=== PATIENT | male | born 1970 | race Caucasian/White ===

== ENCOUNTER 2017-03-31 07:35 | Inpatient (IN) | payer SELFPAY ==
[~2017-03-31] VITALS: Ht 190.5 cm; Wt 83.6 kg
[2017-03-31] VITALS (8 sets, daily range): BP systolic 128–163; BP diastolic 69–91
--- NOTE | 2017-03-31 07:58 | Diagnostic Imaging Report ---
PROCEDURE: CT head without contrast. TECHNIQUE: Multiple contiguous axial images were obtained through the brain without the use of intravenous contrast. INDICATION: Left weakness. FINDINGS: The ventricles and sulci are within normal limits. There is no hydrocephalus or cerebral edema. There is no midline shift or mass effect. There is no intracranial mass, hemorrhage, or extra-axial fluid collection. The visualized paranasal sinuses and mastoid air cells are clear. There are no regional areas of decreased attenuation appreciated to suggest an acute CVA. IMPRESSION: No acute intracranial abnormality. If there is high clinical concern for an acute CVA, further evaluation with MRI should be considered. Dictated by: Dictated on workstation # [id number]
[2017-03-31 08:02] LABS: BASOPHILS # (AUTO) 0.1 10^3/uL (0.0-0.1); BASOPHILS % (AUTO) 1 % (0-10); EOSINOPHILS # (AUTO) 0.2 10^3/uL (0.0-0.3); EOSINOPHILS % (AUTO) 2 % (0-10); LYMPHOCYTES # (AUTO) 2.3 X 10^3 (1.0-4.0); LYMPHOCYTES % (AUTO) 27 % (12-44); MEAN CORPUSCULAR HEMOGLOBIN 33 PG (25-34); MEAN CORPUSCULAR HGB CONC 35 G/DL (32-36); MEAN CORPUSCULAR VOLUME 93 FL (80-99); MEAN PLATELET VOLUME 10.3 FL (7.4-10.4); MONOCYTES # (AUTO) 0.8 X 10^3 (0.0-1.0); MONOCYTES % (AUTO) 9 % (0-12); NEUTROPHILS # (AUTO) 5.5 X 10^3 (1.8-7.8); NEUTROPHILS % (AUTO) 62 % (42-75); PLATELET COUNT 208 10^3/uL (130-400); RED BLOOD COUNT 4.97 10^6/uL (4.35-5.85); RED CELL DISTRIBUTION WIDTH 12.3 % (10.0-14.5); WHITE BLOOD COUNT 8.8 10^3/uL (4.3-11.0)
--- NOTE | 2017-03-31 08:12 | ED Neurological Problem ---
General Stated Complaint: STOKE LIKE SYMPTOMS Source: patient, family Exam Limitations: no limitations History of Present Illness Time seen by provider: 07:57 Initial Comments This 47-year-old white male presents with a history of paroxysmal slurred speech and left-sided weakness approximately 30 minutes prior to presentation in the emergency department (onset of symptoms 7:20 a.m.). The patient was at home having a quiet morning when his symptoms occurred. The patient had a glucose at home of approximately 300. The patient's family relates that he is fairly noncompliant in treating his diabetes. Patient has similar episode several years ago for which she was hospitalized at [place]. The patient was diagnosed at that time with a TIA. Baby aspirin has been prescribed for the patient. Allergies and Home Medications Allergies Coded Allergies: No Known Drug Allergies (Unverified , 03/31/17) Constitutional: No chills, No fever Eyes: Denies Blurred Vision Ears, Nose, Mouth, Throat: denies ear pain, denies epistaxis Respiratory: No cough Cardiovascular: No chest pain Gastrointestinal: No nausea Genitourinary: no symptoms reported Musculoskeletal: muscle weakness (left arm) Skin: No rash Psychiatric/Neurological: No Symptoms Reported Endocrine: No Symptoms Reported Hematologic/Lymphatic: No Symptoms Reported Past Aobznho-Srzbcn-Dmsyhn Hx Patient Social History Alcohol Use: Occasionally Uses Recreational Drug Use: No Smoking Status: Heavy Tobacco Smoker Type Used: Cigarettes Reviewed Nursing Assessment Reviewed/Agree w Nursing PMH: Yes Physical Exam Vital Signs Vital Sign - Last 12Hours 03/31/17 07:35 Temp 97.5 Pulse 70 Resp 16 B/P (MAP) 163/91 Pulse Ox 98 O2 Delivery Room Air Capillary Refill : General Appearance: WD/WN, mild distress HEENT: normal ENT inspection Neck: normal inspection Respiratory: normal breath sounds, no respiratory distress Cardiovascular: normal peripheral pulses, regular rate, rhythm Gastrointestinal: normal bowel sounds, non tender, soft Back: normal inspection Extremities: normal range of motion, non-tender, normal inspection Neurologic/Psychiatric: deicer finisher II-XII nml as tested, no motor/sensory deficits, alert, normal mood/affect, oriented x 3 Crainal Nerves: normal hearing, PERRL, abnormal speech (the patient's speech is slow but not slurred), No facial asymmetry, No facial droop Motor/Sensory: no motor deficit, no sensory deficit Skin: normal color, warm/dry Progress/Results/Core Measures Results/Orders Lab Results Laboratory Tests Test 03/31/17 07:30 Range/Units White Blood Count 8.8 4.3-11.0 10^3/uL Red Blood Count 4.97 4.35-5.85 10^6/uL Hemoglobin 16.2 13.3-17.7 G/DL Hematocrit 46 40-54 % Mean Corpuscular Volume 93 80-99 FL Mean Corpuscular Hemoglobin 33 25-34 PG Mean Corpuscular Hemoglobin Concent 35 32-36 G/DL Red Cell Distribution Width 12.3 10.0-14.5 % Platelet Count 208 130-400 10^3/uL Mean Platelet Volume 10.3 7.4-10.4 FL Neutrophils (%) (Auto) 62 42-75 % Lymphocytes (%) (Auto) 27 12-44 % Monocytes (%) (Auto) 9 0-12 % Eosinophils (%) (Auto) 2 0-10 % Basophils (%) (Auto) 1 0-10 % Neutrophils # (Auto) 5.5 1.8-7.8 X 10^3 Lymphocytes # (Auto) 2.3 1.0-4.0 X 10^3 Monocytes # (Auto) 0.8 0.0-1.0 X 10^3 Eosinophils # (Auto) 0.2 0.0-0.3 10^3/uL Basophils # (Auto) 0.1 0.0-0.1 10^3/uL Prothrombin Time 11.0 L 12.2-14.7 SEC INR Comment 0.8 0.8-1.4 Activated Partial Thromboplast Time 29 24-35 SEC D-Dimer 0.36 0.00-0.49 UG/ML Sodium Level 137 135-145 MMOL/L Potassium Level 4.1 3.6-5.0 MMOL/L Chloride Level 104 98-107 MMOL/L Carbon Dioxide Level 20 L 21-32 MMOL/L Anion Gap 13 5-14 MMOL/L Blood Urea Nitrogen 21 H 7-18 MG/DL Creatinine 1.01 0.60-1.30 MG/DL Estimat Glomerular Filtration Rate > 60 BUN/Creatinine Ratio 21 H 0-20 Glucose Level 320 H 70-105 MG/DL Calcium Level 9.2 8.5-10.1 MG/DL Total Bilirubin 0.4 0.1-1.0 MG/DL Aspartate Amino Transf (AST/SGOT) 14 5-34 U/L Alanine Aminotransferase (ALT/SGPT) 16 0-55 U/L Alkaline Phosphatase 94 40-136 U/L Troponin I < 0.30 <0.30 NG/ML Total Protein 7.1 6.4-8.2 GM/DL Albumin 4.3 3.2-4.5 GM/DL My Orders Orders - FELIPE VARELA MD Ct Head Wo (03/31/17 07:42) Cbc With Automated Diff (03/31/17 07:54) Protime With Inr (03/31/17 07:54) Partial Thromboplastin Time (03/31/17 07:54) Comprehensive Metabolic Panel (03/31/17 07:54) Fibrin Degradation Products (03/31/17 07:54) Troponin I (03/31/17 07:54) Chest 1 View, Ap/Pa Only (03/31/17 07:54) Ekg Tracing (03/31/17 07:54) Nothing By Mouth (03/31/17 Lunch) Accucheck Stat ONCE (03/31/17 07:54) Saline Lock/Iv-Start (03/31/17 07:54) Saline Lock/Iv-Start (03/31/17 07:54) Vital Signs-Stroke Q1H (03/31/17 07:54) O2 (03/31/17 07:54) Intake & Output 06,14,22 (03/31/17 07:54) Monitor-Rhythm Ecg Trace Only (03/31/17 07:54) Dysphagia Screening Tool (03/31/17 07:54) Post Thrombolytic Adminstratio (03/31/17 07:54) Aspirin Chewable Tablet (Baby Aspirin Ch (03/31/17 08:30) Ct Angio Chest W (03/31/17 08:54) Clopidogrel Tablet (Plavix Tablet) (03/31/17 09:00) Ua Culture If Indicated (03/31/17 09:02) Accucheck Stat ONCE (03/31/17 09:02) Saline Lock/Iv-Start (03/31/17 09:02) Saline Lock/Iv-Start (03/31/17 09:02) Vital Signs-Stroke Q1H (03/31/17 09:02) O2 (03/31/17 09:02) Intake & Output 06,14,22 (03/31/17 09:02) Dysphagia Screening Tool (03/31/17 09:02) Post Thrombolytic Adminstratio (03/31/17 09:02) Iohexol Injection (Omnipaque 350 Mg/Ml 1 (03/31/17 09:15) Ns (Ivpb) (Sodium Chloride 0.9% Ivpb Bag (03/31/17 09:15) Medications Given in ED Current Medications Medications Dose Ordered Sig/Anthony Route Start Time Stop Time Status Last Admin Dose Admin Aspirin 81 mg ONCE ONCE PO 03/31/17 08:30 03/31/17 08:31 DC 03/31/17 08:41 81 MG Clopidogrel Bisulfate 75 mg ONCE ONCE PO 03/31/17 09:00 03/31/17 09:02 DC 03/31/17 09:12 75 MG Vital Signs/I&O Vital Sign - Last 12Hours 03/31/17 03/31/17 03/31/17 03/31/17 07:35 07:40 07:40 08:41 Temp 97.5 97.5 Pulse 70 70 Resp 16 16 B/P (MAP) 163/91 163/91 Pulse Ox 98 98 98 O2 Delivery Room Air Progress Note : Time: 08:14 Progress Note The patient's initial NIHHS as score on my exam was 14 his slow speech. The nurse's exam following CT of the head was 0. Telephone consultation was undertaken with neurology, Dr. Robles, who recommended based on the patient's history that he was not a candidate for TPA. The patient's CT of the head has been sent to for their review. I am awaiting the patella radiologist's interpretation of the CT here at [facility]. The patient's glucose on arrival was approximately 275. The rest of the patient 's stroke workup has been initiated. Pending the results of the CT of the head, if no bleed is noted, we'll administer aspirin to the patient. A [address] of the head was unremarkable. Baby aspirin was administered to the patient. I discussed initial impressions with the patient and his family. I recommended that he stay for further evaluation with MR and monitoring. The patient agreed to stay for further evaluation. Telephone consultation was undertaken with Dr. Sapp. The patient received 75 mg of Plavix orally. Departure Communication Time/Spoke to Admitting Phy: 09:[address] Sapp Impression Impression: Primary Impression: CVA (cerebral vascular accident) Qualified Codes: I63.9 - Cerebral infarction, unspecified Additional Impression: Lung infiltrate Disposition: ADMITTED INPATIENT Condition: Unchanged Decision to Admit Reason: Admit from ER (General) Decision to Admit/Date: Mar 31, 2017 Time/Decision to Admit Time: 09:33 Departure-Patient Inst. Referrals: UNKNOWN (PCP) Primary Care Physician FELIPE VARELA MD Mar 31, 2017 08:11
[2017-03-31 08:14] LABS: ALANINE AMINOTRANSFERASE 16 U/L (0-55); ALBUMIN 4.3 GM/DL (3.2-4.5); ANION GAP 13 MMOL/L (5-14); ASPARTATE AMINO TRANSFERASE 14 U/L (5-34); BILIRUBIN,TOTAL 0.4 MG/DL (0.1-1.0); BLOOD UREA NITROGEN 21 MG/DL (7-18); BUN/CREATININE RATIO 21 (0-20); CALCIUM 9.2 MG/DL (8.5-10.1); CARBON DIOXIDE 20 MMOL/L (21-32); CHLORIDE 104 MMOL/L (98-107); CREATININE SERUM 1.01 MG/DL (0.60-1.30); GFR ESTIMATED > 60; GLUCOSE 320 MG/DL (70-105); HEMOLYSIS 25 (-100-29); ICTERUS 0.7 (-100-1.9); LIPEMIA 50 (-100-49); POTASSIUM 4.1 MMOL/L (3.6-5.0); SODIUM 137 MMOL/L (135-145); TOTAL PROTEIN 7.1 GM/DL (6.4-8.2)
[2017-03-31 08:17] LABS: INR 0.8 (0.8-1.4)
[2017-03-31 08:20] LABS: TROPONIN I < 0.30 NG/ML (<0.30)
[2017-03-31] MEDS ORDERED: ASPIRIN 81 MG CHEW (CHILDREN'S ASA) PO ONE (08:30)
--- NOTE | 2017-03-31 08:44 | Diagnostic Imaging Report ---
INDICATION: Left weakness. COMPARISON: No prior examination is available for comparison. FINDINGS: The heart size is normal. There is minimal right basilar atelectasis and/or pneumonitis. There is no pleural effusion or pneumothorax. The mediastinum is unremarkable. IMPRESSION: Patchy atelectasis and/or pneumonitis in the medial aspect of the right lung base. Dictated by: Dictated on workstation # [id number]
[2017-03-31] MEDS ORDERED: CLOPIDOGREL 75 MG (PLAVIX) TABLET PO ONE (09:00)
[2017-03-31] MEDS ORDERED: NS 100 ML (IVPB) BAG IV ONE (09:15)
[2017-03-31] MEDS ORDERED: IOHEXOL 350 MG/ML 150 ML (OMNIPAQUE 350) VIAL IV ONE (09:15)
--- NOTE | 2017-03-31 10:08 | Diagnostic Imaging Report ---
PROCEDURE: CT angiography of the chest with contrast. TECHNIQUE: Multiple contiguous axial images were obtained through the chest after uneventful bolus administration of intravenous contrast. Reconstructed CTA MIP acquisitions were also performed. INDICATION: Left weakness, heartburn, and leg swelling. FINDINGS: There is minimal linear scarring in the right lung base. There are no other discrete pulmonary nodules, masses, or infiltrates. There is mild emphysematous disease. There is no pathologically enlarged adenopathy in the chest. The thoracic aorta is normal in caliber without evidence of dissection. There are no filling defects seen within the pulmonary arteries to suggest pulmonary embolism. There is no pneumothorax. There are degenerative changes in the spine. The visualized intra-abdominal structures are grossly unremarkable. IMPRESSION: No evidence of aortic dissection or pulmonary embolism. Minimal linear scarring or atelectasis in the right lung base. Dictated by: Dictated on workstation # [id number]
[2017-03-31] MEDS ORDERED: METF500T4 PO (11:08)
[2017-03-31] MEDS ORDERED: HYDR-3816 PO (11:08)
[2017-03-31] MEDS ORDERED: GABA300S2 PO (11:08)
[2017-03-31] MEDS ORDERED: ASPI-983 PO (11:08)
[2017-03-31] MEDS ORDERED: DULO30CA48 PO (11:08)
[2017-03-31] MEDS ORDERED: GLIM4TAB PO (11:08)
[2017-03-31] MEDS ORDERED: TRAM50TA2 PO (11:08)
[2017-03-31] MEDS ORDERED: CITA40TA11 PO (11:08)
[2017-03-31] MEDS ORDERED: PIOG30TA26 PO (11:08)
[2017-03-31] MEDS ORDERED: LISI-556 PO (11:08)
[2017-03-31 11:09] LABS: BILIRUBIN,URINE NEGATIVE (NEGATIVE); KETONES,URINE NEGATIVE (NEGATIVE); LEUKOCYTE ESTERASE ,URINE NEGATIVE (NEGATIVE); NITRITE,URINE NEGATIVE (NEGATIVE); PH,URINE 5 (5-9); PROTEIN,URINE 2+ (NEGATIVE); UROBILINOGEN,URINE NORMAL (NORMAL)
[2017-03-31] MEDS ORDERED: GADOBUTROL 10 MMOL/10 ML (GADAVIST) VIAL IV ONE (13:45)
--- NOTE | 2017-03-31 14:29 | Diagnostic Imaging Report ---
PROCEDURE: MR imaging of the brain with and without contrast. TECHNIQUE: Multiplanar, multisequence MR imaging of the brain was performed with and without contrast. INDICATION: Stroke symptoms, possible TIA, CVA. COMPARISON: None. FINDINGS: The ventricles are normal in size, shape and position. There is no midline shift or mass effect. There is no hemorrhage or evidence of acute ischemia. There is no abnormal enhancement or mass. Vascular flow voids have a normal appearance. Craniocervical junction anatomy is grossly normal. Paranasal sinuses and mastoids are clear. Orbits are unremarkable. IMPRESSION: Negative MRI of the brain. No focus of acute, chronic ischemia or hemorrhage. Dictated by: Dictated on workstation # [id number]
[2017-03-31] MEDS ORDERED: HYDROcodone/APAP 7.5 MG/325 MG (LORTAB, LORCET PLUS) TABLET PO PRN (18:30)
[2017-03-31] MEDS ORDERED: RX-TRAMADOL 50 MG (ULTRAM) TAB PPK#4 PO PRN (18:30)
[2017-03-31] MEDS: GABAPENTIN 300 MG (NEURONTIN) CAP PO SCH (20:24)
[2017-03-31] MEDS ORDERED: GABAPENTIN 300 MG PO SCH (21:00)
[2017-04-01] VITALS: BP 135/76
[2017-04-01 04:00] VITALS: BP 126/75
[2017-04-01 05:36] LABS: BASOPHILS % (AUTO) 0 % (0-10); EOSINOPHILS # (AUTO) 0.2 10^3/uL (0.0-0.3); EOSINOPHILS % (AUTO) 3 % (0-10); LYMPHOCYTES # (AUTO) 2.1 X 10^3 (1.0-4.0); LYMPHOCYTES % (AUTO) 26 % (12-44); MEAN CORPUSCULAR HEMOGLOBIN 33 PG (25-34); MEAN CORPUSCULAR HGB CONC 35 G/DL (32-36); MEAN CORPUSCULAR VOLUME 93 FL (80-99); MEAN PLATELET VOLUME 10.2 FL (7.4-10.4); MONOCYTES # (AUTO) 0.6 X 10^3 (0.0-1.0); MONOCYTES % (AUTO) 7 % (0-12); NEUTROPHILS # (AUTO) 5.1 X 10^3 (1.8-7.8); NEUTROPHILS % (AUTO) 64 % (42-75); PLATELET COUNT 192 10^3/uL (130-400); RED BLOOD COUNT 4.67 10^6/uL (4.35-5.85); RED CELL DISTRIBUTION WIDTH 11.9 % (10.0-14.5)
[2017-04-01 06:07] LABS: ALANINE AMINOTRANSFERASE 14 U/L (0-55); ALBUMIN 3.5 GM/DL (3.2-4.5); ANION GAP 16 MMOL/L (5-14); ASPARTATE AMINO TRANSFERASE 17 U/L (5-34); BILIRUBIN,TOTAL 0.2 MG/DL (0.1-1.0); BLOOD UREA NITROGEN 26 MG/DL (7-18); BUN/CREATININE RATIO 28 (0-20); CALCIUM 8.4 MG/DL (8.5-10.1); CARBON DIOXIDE 13 MMOL/L (21-32); CHLORIDE 105 MMOL/L (98-107); CREATININE SERUM 0.92 MG/DL (0.60-1.30); GFR ESTIMATED > 60; GLUCOSE 309 MG/DL (70-105); HEMOLYSIS 71 (-100-29); ICTERUS 0.9 (-100-1.9); LIPEMIA 163 (-100-49); POTASSIUM 4.4 MMOL/L (3.6-5.0); SODIUM 134 MMOL/L (135-145); TOTAL PROTEIN 6.7 GM/DL (6.4-8.2)
[2017-04-01] MEDS ORDERED: metFORMIN 500 MG (GLUCOPHAGE) TAB PO SCH (07:00)
[2017-04-01] MEDS ORDERED: GLIMEPIRIDE 4 MG (AMARYL) TAB PO SCH (07:00)
[2017-04-01 08:00] VITALS: BP 138/75
[2017-04-01] MEDS: GABAPENTIN 300 MG (NEURONTIN) CAP PO SCH (08:30)
[2017-04-01] MEDS ORDERED: PIOGLITAZONE 30MG (ACTOS) TAB PO SCH (09:00)
[2017-04-01] MEDS ORDERED: NON-FORMULARY MEDICATION 1 EA EA (Citalopram Hydrobromide (Citalopram HBr) 40 MG) PO SCH (09:00)
[2017-04-01] MEDS ORDERED: DULoxetine 30 MG (CYMBALTA) CAP PO SCH (09:00)
[2017-04-01] MEDS ORDERED: CLOPIDOGREL 75 MG (PLAVIX) TABLET PO SCH (09:00)
[2017-04-01] MEDS ORDERED: ASPIRIN 81 MG CHEW (CHILDREN'S ASA) PO SCH (09:00)
[2017-04-01] MEDS ORDERED: lisINopril 5 MG (PRINIVIL) TABLET PO SCH (09:00)
[2017-04-01] MEDS ORDERED: ASPIRIN E.C. 81 MG (ECOTRIN) TAB PO SCH (09:00)
[2017-04-01] MEDS ORDERED: CLOP75TA28 PO (11:17)
--- NOTE | 2017-04-01 11:28 | Short Stay Summary-Hospitalist ---
HPI History of Present Illness: HPI/Chief Complaint CC: Garbled speech 30 minutes before ER arrival HPI: This is a 47-year-old white male who goes to Dr. Alice Obregon in [place], [place] that has a past medical history of diabetes mellitus, hypertension and active smoking of 2-3 packs per day the presents to the emergency room yesterday with garbled speech that started 30 minutes prior to arrival. It resolved by the time he was assessed but due to the multiple risk factors he was admitted for observation MRI obtained and Plavix added to the regimen for further prevention of possible TIA versus neurological deficit versus nonspecific episode that cannot be identified. Smoking cessation has been counseled of which she has been trying to quit the last several years and I updated him that his MRI was negative for any type of stroke so he is asking for discharge of which is reasonable and will have a close follow-up with his primary care provider in the process of arranging for primary care provider transferred to the local [place] area. His hemoglobin A1c is 10.1 and I'm unsure of the compliance factor with medication but patient likely will need insulin administration. Source: patient Exam Limitations: no limitations Date Seen 04/01/17 Time Seen by Provider: 10:00 Attending Physician Rayne Sapp Amanda K MD Referring Physician Date of Admission Mar 31, 2017 at 09:05 Home Medications & Allergies Home Medications Reviewed patient Home Medication Reconciliation Form Allergies Allergies Coded Allergies No Known Drug Allergies (Unverified03/31/17) Past Nrggzsu-Wcyfts-Lnfeyv Hx Patient Social History Employed/Student: unemployed (disabled due to L4 spine fx, [employer] for 13 years before disabled) Alcohol Use: Occasionally Uses Recreational Drug Use: No Smoking Status: Current Everyday Smoker Type Used: Cigarettes Physical Abuse Screen: No Sexual Abuse: No Recent Foreign Travel: No Contact w/other who traveled: No Recent Infectious Disease Expo: No Surgeries HX Surgeries: No Respiratory Hx Respiratory Disorders: No Cardiovascular Hx Cardiovascular Disorders: Yes Cardiac Disorders: Hypertension Neurological Hx Neurological Disorders: Yes Neurological Disorders: TIA (2016) Reproductive System Sexually Transmitted Disease: No HIV/AIDS: No Genitourinary Hx Genitourinary Disorders: No Gastrointestinal Hx Gastrointestinal Disorders: No Musculoskeletal Hx Musculoskeletal Disorders: Yes Musculoskeletal Disorders: Chronic Back Pain Endocrine Hx Endocrine Disorders: Yes Endocrine Disorders: Diabetes, Non-Insulin dep HEENT HX ENT Disorders: No Cancer Hx Cancer: No Psychosocial Hx Psychiatric Problems: No Integumentary HX Skin/Integumentary Disorder: No Blood Transfusions Adverse Reaction to a Blood Tr: No Reviewed Nursing Assessment Reviewed/Agree w Nursing PMH: Yes Family Medical History Family Hx: Cardiovascular disease 19 FATHER Completed stroke paternal grandmother patrnal grandfather Coronary thrombosis paternal grandmother Diabetes mellitus G8 SISTER Hypercholesterolemia 19 FATHER G8 BROTHER Hypertension 19 FATHER G8 BROTHER Review of Systems Date Seen by Provider: Apr 01, 2017 Time Seen by Provider: 10:00 Constitutional: weakness EENTM: no symptoms reported Respiratory: no symptoms reported Cardiovascular: no symptoms reported Gastrointestinal: no symptoms reported Genitourinary: no symptoms reported Musculoskeletal: back pain (chronic) Skin: no symptoms reported Psychiatric/Neurological: Weakness (now resolved) All Other Systems Reviewed Negative Unless Noted: Yes Physical Exam Physical Exam Vital Signs Vital Sign - Last 12Hours 03/31/17 07:35 Temp 97.5 Pulse 70 Resp 16 B/P (MAP) 163/91 Pulse Ox 98 O2 Delivery Room Air Capillary Refill : Less Than 3 Seconds General Appearance: No Apparent Distress, WD/WN Eyes: Bilateral Eye Normal Inspection, Bilateral Eye PERRL HEENT: PERRL/EOMI, Normal ENT Inspection, Pharynx Normal Neck: Full Range of Motion, Normal Inspection, Non Tender, Supple, Carotid Bruit Respiratory: Chest Non Tender, Lungs Clear, Normal Breath Sounds, No Accessory Muscle Use, No Respiratory Distress Cardiovascular: Regular Rate, Rhythm, No Edema, No Gallop, No JVD, No Murmur, Normal Peripheral Pulses Gastrointestinal: Normal Bowel Sounds, No Organomegaly, No Pulsatile Mass, Non Tender, Soft Back: Normal Inspection, No CVA Tenderness, No Vertebral Tenderness Extremity: Normal Capillary Refill, Normal Inspection, Normal Range of Motion, Non Tender, No Calf Tenderness, No Pedal Edema Neurologic/Psychiatric: Alert, Oriented x3, No Motor/Sensory Deficits, Normal Mood/Affect Skin: Normal Color, Warm/Dry Lymphatic: No Adenopathy Results Results/Procedures Lab Laboratory Tests 03/31/17 07:30 04/01/17 05:15 Short Stay Diagnosis Discharge Diagnosis-Short Stay Admission Diagnosis Assessment: Acute neurological deficit as a result of TIA versus nonspecific weakness episode with garbled speech with negative MRI Heavy smoker counseled to cease Diabetes mellitus on oral meds needs insulin hemoglobin A1c of 10.1 questionable compliance with meds Hypertension L4 spine disability Final Discharge Diagnosis Assessment: Acute neurological deficit as a result of TIA versus nonspecific weakness episode with garbled speech with negative MRI Heavy smoker counseled to cease Diabetes mellitus on oral meds needs insulin hemoglobin A1c of 10.1 questionable compliance with meds Hypertension L4 spine disability Conclusion Plan Plan: Add statin therapy Add Plavix Resume all home meds Follow-up with primary care provider this week Transfer primary care provider to local [facility] since he lives here Needs insulin initiation Smoking cessation counseled Clinical Quality Measures DVT/VTE Risk/Contraindication: Risk Factor Score Per Nursin RFS Level Per Nursing on Admit: 3=High RAYNE SAPP DO Apr 01, 2017 11:27
[2017-04-01] MEDS ORDERED: LOVA10TA PO (11:29)
[2017-04-01 11:43] LABS: CHOLESTEROL 279 MG/DL (< 200); DIRECT LDL 82 MG/DL (1-129); LIPEMIA 163 (-100-49); TRIGLYCERIDES 1470 MG/DL (<150); VLDL CHOLESTEROL 294 MG/DL (5-40)
[2017-04-01 11:45] VITALS: BP 138/75
== END 2017-04-01 11:45 | disposition home or self-care (01) | DRG 69 ==
LOC: ER 07:39 → 4TH 09:05
PROVIDERS: ADMIT Internal Medicine; ATTEND Internal Medicine
DX: G45.9 Transient cerebral ischemic attack, unspecified (principal); R53.1 Weakness; R47.89 Other speech disturbances; I10 Essential (primary) hypertension; E11.9 Type 2 diabetes mellitus without complications; F17.210 Nicotine dependence, cigarettes, uncomplicated
CPT/HCPCS: 36415; 70450; 70553; 71010; 71275; 80053; 80061; 81000; 82962; 83036; 84484; 85025; 85379; 85610; 85730; 93005; 93041; 93306

== ENCOUNTER 2018-03-05 18:04 | Observation (INO) | payer OTHER ==
[~2018-03-05] VITALS: Ht 190.5 cm; Wt 95.1 kg
[~2018-03-05 18:04] MED LIST: ASPI-983 PO; CITA40TA11 PO; CLOP75TA28 PO; DULO30CA48 PO; GABA300S2 PO; GLIM4TAB PO; HYDR-34 PO; LISI-556 PO; LOVA10TA PO; METF500T5 PO; PIOG30TA26 PO; TRAM50TA2 PO
--- NOTE | 2018-03-05 18:20 | Diagnostic Imaging Report ---
PROCEDURE: CT head without contrast. TECHNIQUE: Multiple contiguous axial images were obtained through the brain without the use of intravenous contrast. INDICATION: Slurred speech and left-sided weakness. COMPARISON: Comparison is made with prior head CT from 03/31/2017. FINDINGS: The ventricular size and sulcal pattern appear appropriate. Coleman-white matter interface is maintained. No sulcal effacement is seen. There is no midline shift. No acute intra-axial or extra-axial hemorrhage is seen. Cisterns are patent. The visualized paranasal sinuses are clear. IMPRESSION: No acute intracranial process is detected. If symptoms persist, MRI may be useful for further evaluation. Dictated by: Dictated on workstation # [id number]
--- NOTE | 2018-03-05 18:34 | Diagnostic Imaging Report ---
INDICATION: Stroke. TIME OF EXAM: 6:29 PM CORRELATION is made with a prior study from 03/31/2017. FINDINGS: The heart size is normal. The pulmonary vascularity is unremarkable. The lungs are clear. No infiltrate, effusion or pneumothorax is detected. IMPRESSION: No acute cardiopulmonary process is detected. Dictated by: Dictated on workstation # [id number]
[2018-03-05 18:48] LABS: BASOPHILS % (AUTO) 0 % (0-10); EOSINOPHILS % (AUTO) 0 % (0-10); HEMATOCRIT 44 % (40-54); HEMOGLOBIN 15.4 G/DL (13.3-17.7); LYMPHOCYTES # (AUTO) 1.9 X 10^3 (1.0-4.0); LYMPHOCYTES % (AUTO) 18 % (12-44); MEAN CORPUSCULAR HEMOGLOBIN 31 PG (25-34); MEAN CORPUSCULAR HGB CONC 35 G/DL (32-36); MEAN CORPUSCULAR VOLUME 88 FL (80-99); MEAN PLATELET VOLUME 9.9 FL (7.4-10.4); MONOCYTES % (AUTO) 9 % (0-12); NEUTROPHILS # (AUTO) 7.8 X 10^3 (1.8-7.8); NEUTROPHILS % (AUTO) 72 % (42-75); PLATELET COUNT 220 10^3/uL (130-400); RED BLOOD COUNT 4.98 10^6/uL (4.35-5.85); RED CELL DISTRIBUTION WIDTH 12.7 % (10.0-14.5); WHITE BLOOD COUNT 10.9 10^3/uL (4.3-11.0)
[2018-03-05] MEDS ORDERED: IOHEXOL 350 MG/ML 100 ML (OMNIPAQUE 350) VIAL IV ONE (19:00)
[2018-03-05] MEDS ORDERED: NS 100 ML (IVPB) BAG IV ONE (19:00)
[2018-03-05 19:04] LABS: PROTHROMBIN TIME PATIENT 13.4 SEC (12.2-14.7)
[2018-03-05 19:09] LABS: ALANINE AMINOTRANSFERASE 16 U/L (0-55); ALBUMIN 4.1 GM/DL (3.2-4.5); ALKALINE PHOSPHATASE 71 U/L (40-136); BILIRUBIN,TOTAL 0.3 MG/DL (0.1-1.0); BUN/CREATININE RATIO 16; CALCIUM 9.2 MG/DL (8.5-10.1); CARBON DIOXIDE 22 MMOL/L (21-32); CHLORIDE 106 MMOL/L (98-107); CREATININE SERUM 1.34 MG/DL (0.60-1.30); GFR ESTIMATED 57; GLUCOSE 129 MG/DL (70-105); MAGNESIUM 1.7 MG/DL (1.8-2.4); POTASSIUM 3.9 MMOL/L (3.6-5.0); SODIUM 140 MMOL/L (135-145); TOTAL PROTEIN 6.3 GM/DL (6.4-8.2)
[2018-03-05 19:16] LABS: MYOGLOBIN SERUM 149.2 NG/ML (10.0-92.0)
--- NOTE | 2018-03-05 19:27 | Diagnostic Imaging Report ---
PROCEDURE: CT angiography of the head and CT angiography of the neck with and without contrast. TECHNIQUE: Contiguous noncontrast images were obtained from the skull base through the vertex. After intravenous contrast administration, helical CT angiography of the neck was performed. Source data was reformatted into multiple MIP projections. Delayed post contrast acquisition was also obtained. INDICATION: Dysarthria, stroke COMPARISON: None FINDINGS: Visualized arch anatomy is normal. Bilateral common carotid and vertebral arteries are widely patent. There is no stenosis or occlusion. No plaque formation is seen. There is no dissection. Bilateral common carotid, internal carotid arteries are widely patent. The [place] is normal. Course and caliber of the basilar artery grossly unremarkable. There is no abnormal enhancement or mass. There is no aneurysm or AVM. Venous structures are grossly normal. IMPRESSION: 1. No acute vascular abnormality identified. 2. No abnormal enhancement or mass. Dictated by: Dictated on workstation # [id number]
[2018-03-05] MEDS: MAGNESIUM 1 GM/100 ML IVPB 100 ML IV SCH ×2 (19:42→20:42)
[2018-03-05] MEDS ORDERED: KETOROLAC 30 MG/ML VIAL IVP ONE (21:00)
[2018-03-05 21:39] VITALS: BP 152/92
[2018-03-05] MEDS ORDERED: 1/2 NS IV SOLUTION 1,000 ML IV ONE (21:47)
[2018-03-05 22:00] VITALS: BP 131/82
[2018-03-05 22:15] VITALS: BP 152/92
[2018-03-05] MEDS ORDERED: inSUlin ASPART (NovoLOG) 1 UNIT/0.01 ML (CHARGE PER UNIT) SC SCH (22:15)
[2018-03-05] MEDS: 1/2 NS IV SOLUTION 1,000 ML IV SCH (22:20)
[2018-03-05 22:30] VITALS: BP 141/85
[2018-03-05 22:45] VITALS: BP 145/78
[2018-03-05 23:00] VITALS: BP 136/81
[2018-03-06] VITALS (12 sets, daily range): BP systolic 104–135; BP diastolic 48–101
[2018-03-06 03:48] LABS: BASOPHILS % (AUTO) 0 % (0-10); EOSINOPHILS # (AUTO) 0.1 10^3/uL (0.0-0.3); EOSINOPHILS % (AUTO) 2 % (0-10); HEMATOCRIT 42 % (40-54); HEMOGLOBIN 14.7 G/DL (13.3-17.7); LYMPHOCYTES # (AUTO) 2.3 X 10^3 (1.0-4.0); LYMPHOCYTES % (AUTO) 35 % (12-44); MEAN CORPUSCULAR HEMOGLOBIN 32 PG (25-34); MEAN CORPUSCULAR HGB CONC 35 G/DL (32-36); MEAN CORPUSCULAR VOLUME 90 FL (80-99); MEAN PLATELET VOLUME 10.2 FL (7.4-10.4); MONOCYTES # (AUTO) 0.7 X 10^3 (0.0-1.0); MONOCYTES % (AUTO) 11 % (0-12); NEUTROPHILS # (AUTO) 3.4 X 10^3 (1.8-7.8); NEUTROPHILS % (AUTO) 52 % (42-75); PLATELET COUNT 204 10^3/uL (130-400); RED BLOOD COUNT 4.67 10^6/uL (4.35-5.85); RED CELL DISTRIBUTION WIDTH 12.4 % (10.0-14.5); WHITE BLOOD COUNT 6.5 10^3/uL (4.3-11.0)
[2018-03-06 04:09] LABS: BUN/CREATININE RATIO 21; CALCIUM 8.5 MG/DL (8.5-10.1); CARBON DIOXIDE 24 MMOL/L (21-32); CHLORIDE 103 MMOL/L (98-107); CREATININE SERUM 1.26 MG/DL (0.60-1.30); GFR ESTIMATED > 60; GLUCOSE 271 MG/DL (70-105); MAGNESIUM 2.7 MG/DL (1.8-2.4); PHOSPHORUS 4.3 MG/DL (2.3-4.7); POTASSIUM 3.7 MMOL/L (3.6-5.0); SODIUM 139 MMOL/L (135-145)
[2018-03-06] MEDS: 1/2 NS IV SOLUTION 1,000 ML IV SCH (04:38)
[2018-03-06] MEDS ORDERED: KCL 20 MEQ TAB (K-DUR) PO SCH (06:00)
[2018-03-06] MEDS ORDERED: inSUlin ASPART (NovoLOG) 1 UNIT/0.01 ML (CHARGE PER UNIT) SC SCH (06:00)
[2018-03-06] MEDS ORDERED: POTASSIUM CL 10MEQ/50ML IVPB 50 ML IV SCH (06:00)
[2018-03-06] MEDS ORDERED: MAGNESIUM 1 GM/100 ML IVPB 100 ML IV SCH (06:00)
--- NOTE | 2018-03-06 07:30 | ED Neurological Problem ---
General Chief Complaint: Neurological Problems Stated Complaint: CVA WITH R ARM/R FACE WEAKNESS;SLURRED SPEECH- Nursing Triage Note: PT BROUGHT STRAIGHT TO CT BY EMS WITH CC OF STROKE LIKE S/S THAT STARTED ABOUT 1430. PT STATES HE WAS WORKING IN A [employer] SUIT TODAY AND GOT OVERHEATED. PT NOW STATES AROUND 1300 PT WAS UNABLE TO USE HIS RT HAND TO GRAB THINGS. GIRFRIEND STATES SHE WAS WALKING IN THE HOUSE WITH THE PT AT 1645 AND THE PT'S RT ARM WAS CRAMPED UP AND HE WAS SLURRING HIS WORDS. 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 WAS HAVING NUMBNESS AND TINGLING TO RIGHT ARM WELL AROUND 1430 HE NOTICED HE WAS HAVING TROUBLE TALKING --STUTTERING PT STATES HE WORKED IN A [employer] SUIT TODAY PT TOLD FEMALE S.O. ABOUT IT AROUND 1615 WHEN HIS RIGHT ARM BEGAN CRAMPING UP PT HAS CHRONIC LOW BACK PAIN AND LEFT SIDED SCIATICA AND IS ON CHRONIC NARCOTICS FOR PAIN STATES HE ALWAYS STARTS HAVING PROBLEMS WALKING DUE TO LEFT LEG PAIN AT THE END OF THE WORK, WHEN HIS PAIN MEDICATION WEARS OFF DID NOT HAVE ANY CHANGE IN HIS ABILITY TO WALK TODAY PT HAD TIA/CVA 03/31/17 WITH THESE SAME SYMPTOMS, WHICH RESOLVED --IS CURRENTLY ON PLAVIX. PCP: JAVIER RUDOLPH MO Allergies and Home Medications Allergies Coded Allergies: No Known Drug Allergies (Unverified , 03/31/17) Home Medications Aspirin 81 Mg Tablet., 81 MG PO DAILY, (Reported) Citalopram Hydrobromide 40 Mg Tablet, 40 MG PO DAILY, (Reported) Clopidogrel Bisulfate 75 Mg Tablet, 75 MG PO DAILY Prescribed by: KEVIN SAMAYOA on 04/01/17 1117 Duloxetine HCl 30 Mg Capsule., 30 MG PO DAILY, (Reported) Gabapentin 300 Mg/6 Ml Solution, 300 MG PO TID, (Reported) Glimepiride 4 Mg Tablet, 4 MG PO BID WITH MEALS, (Reported) Hydrocodone Bit/Acetaminophen 1 Each Tablet, 1 EACH PO Q8H PRN for PAIN- MODERATE TO SEVERE, (Reported) Lisinopril 5 Mg Tablet, 5 MG PO DAILY, (Reported) Lovastatin 10 Mg Tablet, 10 MG PO HS Prescribed by: KEVIN SAMAYOA on 04/01/17 1129 Metformin HCl 500 Mg Tablet, 1,000 MG PO BID WITH MEALS, (Reported) Pioglitazone HCl 30 Mg Tablet, 30 MG PO DAILY WITH BREAKFAST, (Reported) Tramadol HCl 50 Mg Tablet, 50 MG PO Q6H PRN for PAIN-MILD TO MODERATE, (Reported ) Patient Home Medication List Home Medication List Reviewed: Yes Review of Systems Constitutional: No dizziness Eyes: No Symptoms Reported; Denies Blurred Vision, Denies Decreased Acuity Ears, Nose, Mouth, Throat: see HPI Respiratory: no symptoms reported Cardiovascular: no symptoms reported Gastrointestinal: no symptoms reported Genitourinary: no symptoms reported Musculoskeletal: no symptoms reported Skin: no symptoms reported Psychiatric/Neurological: See HPI Endocrine: No Symptoms Reported Hematologic/Lymphatic: No Symptoms Reported Past Oajdute-Ubvrxo-Wgggqu Hx Patient Social History Alcohol Use: Occasionally Uses Number of Drinks Today: 0 Alcohol Beverage of Choice: Beer Recreational Drug Use: No Smoking Status: Current Everyday Smoker (1 PPD) Type Used: Cigarettes Recent Foreign Travel: No Contact w/Someone Who Travel: No Recent Infectious Disease Expo: No Recent Hopitalizations: No Seasonal Allergies Seasonal Allergies: Yes Past Medical History Surgeries: Yes (LOW BACK SURGERY ) Orthopedic Respiratory: Yes Pneumonia Cardiac: Yes Hypertension Neurological: Yes (TIA/CVA MARCH 2017--NO RESIDUAL) TIA Sexually Transmitted Disease: No HIV/AIDS: No Genitourinary: No Gastrointestinal: No Musculoskeletal: Yes (CHRONIC LEFT SIDED SCIATICA) Chronic Back Pain Endocrine: Yes Diabetes, Non-Insulin dep Are Your Blood Sugars Over 250: Yes HEENT: No Cancer: No Psychosocial: No Integumentary: No Blood Disorders: No Adverse Reaction/Blood Tranf: No Family Medical History Cardiovascular disease 19 FATHER Completed stroke paternal grandmother patrnal grandfather Coronary thrombosis paternal grandmother Diabetes mellitus G8 SISTER Hypercholesterolemia 19 FATHER G8 BROTHER Hypertension 19 FATHER G8 BROTHER Physical Exam Vital Signs Vital Signs - First Documented 03/05/18 18:15 Temp 98.0 Pulse 98 Resp 18 B/P (MAP) 157/93 (114) O2 Delivery Room Air Capillary Refill : Less Than 3 Seconds General Appearance: WD/WN, no apparent distress HEENT: PERRL/EOMI, normal ENT inspection (EXCEPT FOR RIGHT FACIAL DROOP. TONGUE IS MIDLINE. NO PROBLEMS HANDLING SECRETIONS) Neck: non-tender, full range of motion, supple, normal inspection; No carotid bruit Respiratory: normal breath sounds, no respiratory distress, no accessory muscle use Cardiovascular: normal peripheral pulses, regular rate, rhythm, no edema, no JVD, no murmur Peripheral Pulses: 2+ Dorsalis Pedis (R), 2+ Left Dors-Pedis (L), 2+ Radial Pulses (R), 2+ Radial Pulses (L) Gastrointestinal: normal bowel sounds, non tender, soft Extremities: non-tender, no pedal edema, no calf tenderness, normal capillary refill Neurologic/Psychiatric: facial droop (RIGHT ), motor weakness (RIGHT ARM); No sensory deficit; other (SPEECH MILDLY SLURRED WITH SOME STUTTERING OF SPEECH) Crainal Nerves: normal hearing, PERRL, facial droop; No facial paresthesias, No gaze palsy; other (DOES HAVE RIGHT PERIPERAL VISION DEFICIT) Coordination/Gait: ABN nose to finger (R) Motor/Sensory: no sensory deficit, pronator drift (R), weak motor strength RUE , other (MOTOR STRENGTH ON LEGS IS SLIGHTLY BETTER ON RIGHT THAN LEFT (LIKELY DUE TO CHRONIC LEFT LEG PAIN/RADICULOPATHY) ) Skin: normal color, warm/dry Stroke NIH Stroke Scale Assessment Level of Consciousness: 0=Alert (0), Level of Consciousness-Questions: 0= Answers both month/age (0), LOC Commands: 0=Performs both tasks (0), Gaze: Normal (0), Visual Flores: 1=Partial hemianopia (1), Facial Movement (Facial Paresis): 2=Partial paralysis (2), Motor Function-Arms Right: 1=Drift (1), Motor Function-Arms Left: 0=No drift (0), Motor Function-Legs Right: 0=No drift (0), Motor Function-Legs Left: 0=No drift (0), Limb Ataxia: 1=Present in one limb (1), Sensory: 0=Normal:no loss (0), Best Language: 1=Mild to moderat aphasia (1), Dysarthria: 1=Mild to moderate loss (1), Extinction & Inattention: 0=No abnormality (0), Total: 7 Stroke Thrombolytic Exclusion Age 18 or Over: Yes Acute intenal hemorrhage: No History of CVA: Yes Uncontrolled Coagulation Defec: No Intracranial Hemorrhage: No Severe Hypertension: No GI or Bleed: No Subarachnoid Hemorrhage: No Intracranial Neoplasm/Aneurysm: No Oral Anticoagulants: Yes Surgery or Trauma: No Puncture of Non-Compressible V: No Recent CPR: No Diabetic Hemorrhagic Retinopat: No Organ Biopsy: No Recent Obstetric Delivery: No Glucose: No Significant Hepatic Dysfunctio: No NIH Stoke Scale >22: No Bacterial Endocarditis: No Pericarditis: No Improving Symptoms: No Platelets: No TPA Contraindication: No IV - TPa Received IV - TPa Procedure Performed?: No (DUE TO OUTSIDE OF TREATMENT WINDOW) Progress/Results/Core Measures Results/Orders Lab Results Laboratory Tests Test 03/05/18 18:40 Range/Units White Blood Count 10.9 4.3-11.0 10^3/uL Red Blood Count 4.98 4.35-5.85 10^6/uL Hemoglobin 15.4 13.3-17.7 G/DL Hematocrit 44 40-54 % Mean Corpuscular Volume 88 80-99 FL Mean Corpuscular Hemoglobin 31 25-34 PG Mean Corpuscular Hemoglobin Concent 35 32-36 G/DL Red Cell Distribution Width 12.7 10.0-14.5 % Platelet Count 220 130-400 10^3/uL Mean Platelet Volume 9.9 7.4-10.4 FL Neutrophils (%) (Auto) 72 42-75 % Lymphocytes (%) (Auto) 18 12-44 % Monocytes (%) (Auto) 9 0-12 % Eosinophils (%) (Auto) 0 0-10 % Basophils (%) (Auto) 0 0-10 % Neutrophils # (Auto) 7.8 1.8-7.8 X 10^3 Lymphocytes # (Auto) 1.9 1.0-4.0 X 10^3 Monocytes # (Auto) 1.0 0.0-1.0 X 10^3 Eosinophils # (Auto) 0.0 0.0-0.3 10^3/uL Basophils # (Auto) 0.0 0.0-0.1 10^3/uL Prothrombin Time 13.4 12.2-14.7 SEC INR Comment 1.0 0.8-1.4 Activated Partial Thromboplast Time 28 24-35 SEC Sodium Level 140 135-145 MMOL/L Potassium Level 3.9 3.6-5.0 MMOL/L Chloride Level 106 98-107 MMOL/L Carbon Dioxide Level 22 21-32 MMOL/L Anion Gap 12 5-14 MMOL/L Blood Urea Nitrogen 21 H 7-18 MG/DL Creatinine 1.34 H 0.60-1.30 MG/DL Estimat Glomerular Filtration Rate 57 BUN/Creatinine Ratio 16 Glucose Level 129 H 70-105 MG/DL Calcium Level 9.2 8.5-10.1 MG/DL Magnesium Level 1.7 L 1.8-2.4 MG/DL Total Bilirubin 0.3 0.1-1.0 MG/DL Aspartate Amino Transf (AST/SGOT) 16 5-34 U/L Alanine Aminotransferase (ALT/SGPT) 16 0-55 U/L Alkaline Phosphatase 71 40-136 U/L Myoglobin 149.2 H 10.0-92.0 NG/ML Troponin I < 0.30 <0.30 NG/ML Total Protein 6.3 L 6.4-8.2 GM/DL Albumin 4.1 3.2-4.5 GM/DL My Orders Orders - SELIN MATTHEW DO Ct Head Wo (03/05/18 ) O2 (03/05/18 18:08) Ekg Tracing (03/05/18 18:08) Cbc With Automated Diff (03/05/18 18:08) Comprehensive Metabolic Panel (03/05/18 18:08) Protime With Inr (03/05/18 18:08) Partial Thromboplastin Time (03/05/18 18:08) Magnesium (03/05/18 18:08) Chest 1 View, Ap/Pa Only (03/05/18 18:08) Cardiac Profile 1 (03/05/18 18:08) Cardiac Profile 2 (03/06/18 00:08) Myoglobin Serum (03/05/18 18:08) Monitor-Rhythm Ecg Trace Only (03/05/18 18:08) Ct Angio Head/Neck (03/05/18 18:40) Iohexol Injection (Omnipaque 350 Mg/Ml 1 (03/05/18 19:00) Ns (Ivpb) (Sodium Chloride 0.9% Ivpb Bag (03/05/18 19:00) Magnesium 1 Gm/100 Ml Ivpb (Magnesium Ruiz (03/05/18 19:15) Vital Signs/I&O 03/05/18 18:15 Temp 98.0 Pulse 98 Resp 18 B/P (MAP) 157/93 (114) O2 Delivery Room Air 03/06/18 00:00 Intake Total 1000 ml Balance 1000 ml Blood Pressure Mean: 83 FSBG Bedside Testing Finger Stick Blood Glucose: 271 Blood Glucose Action Taken: rn notified Progress Progress Note : Progress Note NO DETERIORATION IN PT'S CONDITION DURING ER STAY PT DID HAVE A FEW EPISODES OF CRAMPING IN RIGHT ARM AND HAND Initial ECG Impression Date: March 05, 2018 Initial ECG Impression Time: 18:17 Initial ECG Rate: 102 Initial ECG Rhythm: Normal Sinus Initial ECG Comparisson: Unchanged Diagnostic Imaging Comments CT HEAD--NO ACUTE PROCESS, PER RADIOLOGIST REPORT @ 5 CXR--NO ACUTE PROCESS, PER RADIOLOGIST REPORT @ 1836 CT ANGIOGRAM OF HEAD--NO ACUTE PROCESS PER RADIOLOGIST REPORT @ 193 Reviewed: Reviewed by Me Critical Care Note Critical Care Total Time (minutes) 30 Departure Communication (Admissions) 1825--CALLED [facility] AND PLACED ON HOLD 1838--CALL DISCONNECTED BY [facility]. CALLED THEM BACK AND PLACED ON HOLD AGAIN 1843--SPOKE WITH DR. IBRAHIM, NEUROLOGIST [employer] APPLICATION DEVELOPER FOR STROKE TEAM. SHE AGREES WITH PLAN FOR CTA OF HEAD, HE IS OUTSIDE THE WINDOW FOR TPA. WILL CALL HER BACK WITH RESULTS 1931--CALLED [facility] ATTEMPTING TO SPEAK WITH DR. IBRAHIM / J2EE APPLICATION DEVELOPER NEUROLOGIST, AND PLACED ON HOLD 2000--SPOKE WITH DR. TURNER, NEUROLOGIST NOW J2EE APPLICATION DEVELOPER. HE DOES NOT ADVISE ANY ADDITIONAL TREATMENT PT HAS NO OCCLUSION ON CTA, AND IS ALREADY ON PLAVIX AND DOES NOT NEED TO BE TRANSFERRED AT THIS TIME 2000--SPOKE WITH DR. PEGUERO, ACCEPTS PT FOR ADMIT. . Impression Primary Impression: CVA (cerebral vascular accident) Additional Impressions: HTN (hypertension) Heat exhaustion NIDDM Hypomagnesemia DEHYDRATION WITH ACUTE RENAL INSUFFICIENCY Disposition: ADMITTED INPATIENT Condition: Stable Admissions Decision to Admit Reason: Admit from ER (General) Decision to Admit/Date: March 05, 2018 Time/Decision to Admit Time: 20:05 Departure-Patient Inst. Referrals: ADDY GARZA MD (PCP) Primary Care Physician SELIN MATTHEW DO March 06, 2018 07:30
--- NOTE | 2018-03-06 08:11 | Diagnostic Imaging Report ---
INDICATION: Dyspnea. Time of exam: 2:35 AM Correlation is made with prior study of one day earlier. The heart size is normal. The pulmonary vascularity is unremarkable. The lungs are clear. No infiltrate, effusion or pneumothorax is detected. Impression: No acute cardiopulmonary process is detected. Dictated by: Dictated on workstation # [id number]
[2018-03-06] MEDS ORDERED: GADOBUTROL 10 MMOL/10 ML (GADAVIST) VIAL IV ONE (09:30)
--- NOTE | 2018-03-06 10:12 | Diagnostic Imaging Report ---
PROCEDURE: MR imaging of the brain with and without contrast. TECHNIQUE: Multiplanar, multisequence MR imaging of the brain was performed with and without contrast. INDICATION: Slurred speech and right-sided weakness yesterday. Comparison is made with prior MRI of the brain from 03/31/2017. FINDINGS: The ventricles and sulci are within normal limits. No diffusion restriction is seen to suggest acute ischemia. Normal expected flow-voids within the carotid siphons are identified. No sulcal effacement or midline shift is detected. No acute intracranial hemorrhage is detected. The corpus callosum is unremarkable. The sella and parasellar structures are unremarkable. No abnormal enhancement following contrast administration is seen. IMPRESSION: Unremarkable pre-and postcontrast MRI of the brain. No acute features are detected. Dictated by: Dictated on workstation # [id number]
--- NOTE | 2018-03-06 10:58 | History & Physical ---
History of Present Illness History of Present Illness Reason for visit/HPI 48 yo M admitted for neurological deficit- right arm weakness and right side face droop. Stroke score of 7 on admission. He was out of the window for tPA. [facility] neurology was consulted and CTA of his head was normal; did not show a bleed. Of importance patient has uncontrolled diabetes, smoke cigarettes 10-16 per day , hypertension (controlled), and he has been on/off his plavix over the past year. Most recently he was off for 10days and last week restarted it. When his symptoms started he was outside cleaning out a shed for a friend- he notified his significant other- he thinks he overheated but it was noted he had slurred speech, right facial droop and right arm weakness. Time of onset around 2pm. This AM right arm weakness improved, speech is no longer slurred; he does have right facial droop but he had a degree of it from last March 2017 when he had a similar TIA. CT head, CTA, MRI were all normal. Hga1c pending. Patient reports he is ready to go home. Date of Admission March 05, 2018 at 20:21 Date Seen by Provider: March 06, 2018 Time Seen by Provider: 09:45 I consulted on this patient on 03/06/18 10:45 Attending Physician Syed Gonzalez MD Admitting Physician Petar Gazra MD Consult Allergies and Home Medications Allergies Coded Allergies: No Known Drug Allergies (Unverified , 03/31/17) Home Medications Aspirin 81 Mg Tablet.dr, 81 MG PO DAILY, (Reported) Citalopram Hydrobromide 40 Mg Tablet, 40 MG PO DAILY, (Reported) Clopidogrel Bisulfate 75 Mg Tablet, 75 MG PO DAILY Prescribed by: KEVIN SAMAYOA on 04/01/17 1117 Duloxetine HCl 30 Mg Capsule.dr, 30 MG PO DAILY, (Reported) Gabapentin 300 Mg/6 Ml Solution, 300 MG PO TID, (Reported) Glimepiride 4 Mg Tablet, 4 MG PO BID WITH MEALS, (Reported) Hydrocodone Bit/Acetaminophen 1 Each Tablet, 1 EACH PO Q8H PRN for PAIN- MODERATE TO SEVERE, (Reported) Lisinopril 5 Mg Tablet, 5 MG PO DAILY, (Reported) Lovastatin 10 Mg Tablet, 10 MG PO HS Prescribed by: KEVIN SAMAYOA on 04/01/17 1129 Metformin HCl 500 Mg Tablet, 1,000 MG PO BID WITH MEALS Hold for 3 days resume taking metformin on 03/09/18 Prescribed by: PETAR GARZA on 03/06/18 1101 Pioglitazone HCl 30 Mg Tablet, 30 MG PO DAILY WITH BREAKFAST, (Reported) Tramadol HCl 50 Mg Tablet, 50 MG PO Q6H PRN for PAIN-MILD TO MODERATE, (Reported ) Patient Home Medication List Home Medication List Reviewed: Yes Past Hzafqgw-Emxmfk-Ivczkn Hx Patient Social History Marrital Status: cohabiting Alcohol Use: Occasionally Uses Number of Drinks Today: 0 Alcohol Beverage of Choice: Beer Recreational Drug Use: No Smoking Status: Current Everyday Smoker (1 PPD) Type Used: Cigarettes Physical Abuse Screen: No Sexual Abuse: No Recent Foreign Travel: No Contact w/other who traveled: No Recent Hopitalizations: No Recent Infectious Disease Expo: No Seasonal Allergies Seasonal Allergies: Yes Surgeries Yes (LOW BACK SURGERY ) Orthopedic Respiratory Yes Cardiovascular Yes Hypertension Neurological Yes (TIA/CVA MARCH 2017--NO RESIDUAL) TIA Reproductive System Sexually Transmitted Disease: No HIV/AIDS: No Genitourinary No Gastrointestinal No Musculoskeletal Yes (CHRONIC LEFT SIDED SCIATICA) Chronic Back Pain Endocrine History of Endocrine Disorders: Yes Endocrine Disorders: Diabetes, Non-Insulin dep Are Your Blood Sugars Over 250: Yes HEENT History of HEENT Disorders: No Cancer No Psychosocial History of Psychiatric Problem: No Integumentary History of Skin or Integumenta: No Blood Transfusions History of Blood Disorders: No Adverse Reaction to a Blood Tr: No Family Medical History Family Hx: Cardiovascular disease 19 FATHER Completed stroke paternal grandmother patrnal grandfather Coronary thrombosis paternal grandmother Diabetes mellitus G8 SISTER Hypercholesterolemia 19 FATHER G8 BROTHER Hypertension 19 FATHER G8 BROTHER Review of Systems Review of Systems General: No Chills, No Night Sweats; Fatigue HEENT: No Head Aches, No Visual Changes, No Eye Pain; Dysphasia Pulmonary: No Dyspnea, No Cough Cardiovascular: No: Chest Pain, Palpitations, Orthopnea Gastrointestinal: No: Nausea, Vomiting, Abdominal Pain Genitourinary: No Dysuria, No Frequency Musculoskeletal: back pain, leg pain; No: neck pain, shoulder pain Neurological: Weakness (right arm) Physical Exam Vital Signs Vital Signs - First Documented 03/05/18 03/05/18 18:15 21:25 Temp 98.0 Pulse 98 Resp 18 B/P (MAP) 157/93 (114) Pulse Ox 98 O2 Delivery Room Air Capillary Refill : Less Than 3 Seconds General Appearance: No Apparent Distress, WD/WN, Other HEENT: PERRL/EOMI, Moist Mucous Membranes Neck: Full Range of Motion, Normal Inspection, Non Tender, Supple Respiratory: Chest Non Tender, Lungs Clear Cardiovascular: Regular Rate, Rhythm Gastrointestinal: Normal Bowel Sounds, Non Tender, Soft Rectal: Deferred Back: Normal Inspection Neurologic/Psychiatric: Alert, Oriented x3, Other (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 Admission Status: Observation Reason for Inpatient Admission: admitted for observation. Assessment and Plan Patient is likely to continue to having TIAs, strokes with his lifestyle of uncontrolled diabetes, cigarette use, and inconsistent medication use. Of note pt will hold his metformin for 3 days. Pt deemed stable for discharge today- as his symptoms have improved/nearly resolved- still a little facial droop but he did have some facial droop of right side previously. Follow up at [facility] in 1-2 weeks. Problems: (1) Other chronic pain Assessment & Plan: on chronic pain medication. (2) Type 2 diabetes mellitus with hyperglycemia Qualifiers: Qualified Codes: E11.65 - Type 2 diabetes mellitus with hyperglycemia; Z79.4 - investigator internal affairs (current) use of insulin Assessment & Plan: uncontrolled diabetes Hga1c 9.8 discussed with patient importance of controlling his diabetes which will reduce his risk of having another TIA/stroke. (3) TIA (transient ischemic attack) Qualifiers: Qualified Codes: G45.9 - Transient cerebral ischemic attack, unspecified Assessment & Plan: resume taking his plavix- as he reports he forgets frequently. Next step would be warfarin but I don't think he would be consistent with INR checks. monitor this AM for return of symptoms. (4) HTN (hypertension) Assessment & Plan: continue current regimen- good blood pressure control recommend smoking cessation for his htn and stroke reduction. (5) Hypomagnesemia Assessment & Plan: replaced Clinical Quality Measures DVT/VTE Risk/Contraindication: Risk Factor Score Per Nursin RFS Level Per Nursing on Admit: 2=Moderate PETAR GARZA MD March 06, 2018 10:57
[2018-03-06] MEDS ORDERED: HYDROcodone/APAP 7.5 MG/325 MG (LORTAB, LORCET PLUS) TABLET PO PRN (11:00)
[2018-03-06] MEDS ORDERED: METF500T5 PO (11:01)
--- NOTE | 2018-03-06 11:07 | Discharge Inst-Stroke w/wo TPA ---
Discharge Inst-Stroke w/wo TPA Discharge Medications New, Converted or Re-Newed RX: Other Reason No Anticoagulant RX: Other (outside the window, deficits improved.) Patient Instructions ---follow up appt in 2 weeks at [facility] ---Patient to call for appt. ---Hold/do not take metformin for 3 days since he had a CTA. ---Take plavix and aspirin daily ---Need to get Diabetes under better control. Awaiting Hga1c level. [facility] to [facility] For: return of symptoms. Activity & Diet Discharge Diet: ADA Diet Activity as Tolerated: Yes Note NIH Stroke Scale Score: 7 ADDY GARZA MD March 06, 2018 11:07
[2018-03-07] MEDS ORDERED: DULoxetine 30 MG (CYMBALTA) CAP PO SCH (09:00)
[2018-03-07] MEDS ORDERED: ASPIRIN E.C. 81 MG (ECOTRIN) TAB PO SCH (09:00)
[2018-03-07] MEDS ORDERED: lisINopril 5 MG (PRINIVIL) TABLET PO SCH (09:00)
[2018-03-07] MEDS ORDERED: CLOPIDOGREL 75 MG (PLAVIX) TABLET PO SCH (09:00)
== END 2018-03-06 11:02 | disposition home or self-care (01) ==
LOC: EDUNIT# 18:04 → ER 18:05 → UNDOADMOB 20:21 → ICU 20:21 → UNDOADMOB 21:35 → ICU 21:35 → UNDODISOB 03-06 13:50
PROVIDERS: ADMIT Internal Medicine; ATTEND Internal Medicine
DX: G45.9 Transient cerebral ischemic attack, unspecified (principal); R29.810 Facial weakness; R29.898 Other symptoms and signs involving the musculoskeletal system; E86.0 Dehydration; N28.9 Disorder of kidney and ureter, unspecified; T67.5XXA Heat exhaustion, unspecified, initial encounter; E83.42 Hypomagnesemia; E11.65 Type 2 diabetes mellitus with hyperglycemia; I10 Essential (primary) hypertension; M54.42 Lumbago with sciatica, left side; F17.210 Nicotine dependence, cigarettes, uncomplicated; Z79.82 Long term (current) use of aspirin; Z79.84 Long term (current) use of oral hypoglycemic drugs; Z79.899 Other long term (current) drug therapy; Z91.14 Patient's other noncompliance with medication regimen
CPT/HCPCS: 36415; 70450; 70496; 70498; 70553; 71045; 80048; 80053; 82962; 83036; 83735; 83874; 84100; 84484; 85025; 85610; 85730; 93005; 93041; 93306; 96365; 96366; 96375; G0378

== ENCOUNTER → 2018-03-15 | Outpatient (CLI) | payer OTHER ==
--- NOTE | 2018-03-15 09:32 | Diagnostic Imaging Report ---
PROCEDURE: US carotid duplex, bilateral. TECHNIQUE: Multiple real-time grayscale images were obtained over the carotid arteries in various projections, bilaterally. Additional duplex Doppler and color Doppler images were also obtained. INDICATION: TIA, facial droop, right arm weakness COMPARISON: None FINDINGS: Parameters based on the consensus panel Coleman-Scale and Doppler ultrasound criteria published August 2003, Radiology, Volume 229. DOPPLER (peak systolic velocity M/S Right Left CCA 1.0 1.4 ICA Proximal .77 .90 ICA Mid .95 .98 ICA Distal 1.1 .97 RATIO .9 .7 ECA 1.1 1.4 VERT .70 .60 The carotid waveforms are unremarkable. No stenosis is seen visually on grayscale images. IMPRESSION: 1. No sonographic evidence of hemodynamically significant stenosis in the bilateral carotids. Dictated by: Dictated on workstation # [id number]
== END ==
LOC: RAD 08:16
PROVIDERS: ATTEND Family Medicine
DX: G45.9 Transient cerebral ischemic attack, unspecified (principal)
CPT/HCPCS: 93880

== ENCOUNTER 2018-07-10 08:47 | Outpatient (RCR) | payer MEDICAID ==
[~2018-07-10 08:47] MED LIST changes: +METF-397 PO; -METF500T5 PO; -PIOG30TA26 PO; +PIOG30TA71 PO
== END 2018-07-14 | disposition home or self-care (01) ==
PROVIDERS: ATTEND Family Medicine
DX: M54.5 Low back pain (principal); G62.9 Polyneuropathy, unspecified; G45.8 Other transient cerebral ischemic attacks and related syndromes

== ENCOUNTER → 2018-07-18 | Outpatient (CLI) | payer MEDICAID | LOC: CARD 08:27 | PROVIDERS: ATTEND Internal Medicine Interventional Cardiology | DX: I63.9 Cerebral infarction, unspecified (principal); I10 Essential (primary) hypertension; E11.51 Type 2 diabetes mellitus with diabetic peripheral angiopathy without gangrene; F17.200 Nicotine dependence, unspecified, uncomplicated | CPT/HCPCS: 93225; 93226 ==

== ENCOUNTER 2018-09-06 11:30 | Outpatient (RCR) | payer MEDICAID | END 2018-11-11 | disposition home or self-care (01) | LOC: CARD 11:30 | PROVIDERS: ATTEND Internal Medicine Interventional Cardiology | DX: I63.9 Cerebral infarction, unspecified (principal); E11.9 Type 2 diabetes mellitus without complications; I10 Essential (primary) hypertension; F17.200 Nicotine dependence, unspecified, uncomplicated; G45.9 Transient cerebral ischemic attack, unspecified; I73.9 Peripheral vascular disease, unspecified | CPT/HCPCS: 93270; 93306 ==

== ENCOUNTER 2018-10-04 08:02 | Outpatient (RCR) | payer MEDICAID | END 2018-10-13 | disposition home or self-care (01) | PROVIDERS: ATTEND Family Medicine | DX: M54.5 Low back pain (principal); G62.9 Polyneuropathy, unspecified; G45.8 Other transient cerebral ischemic attacks and related syndromes ==

== ENCOUNTER 2018-11-14 08:43 | Outpatient (RCR) | payer MEDICAID | END 2018-11-14 12:26 | disposition home or self-care (01) | PROVIDERS: ATTEND Family Medicine | DX: M54.5 Low back pain (principal); G62.9 Polyneuropathy, unspecified; G45.8 Other transient cerebral ischemic attacks and related syndromes ==

== ENCOUNTER 2019-05-15 20:35 | Inpatient (IN) | payer MEDICAID, MEDICARE ==
[~2019-05-15] VITALS: Ht 190.5 cm; Wt 89.1 kg
[~2019-05-15 20:35] MED LIST changes: -DULO30CA48 PO; +DULO30CA49 PO
[2019-05-15 20:38] VITALS: BP 152/92
[2019-05-15] MEDS ORDERED: inSUlin (REGULAR) HUMAN 1 UNIT/0.01 ML (CHARGE PER UNIT) IV ONE (20:45)
[2019-05-15] MEDS ORDERED: LACTATED RINGERS 1,000 ML IV SCH (20:45)
--- NOTE | 2019-05-15 20:47 | ED Neurological Problem ---
General Stated Complaint: SLURRING SPEECH,FACIAL DROOP Source: patient Exam Limitations: no limitations (JUNE ARCINIEGA APRN) History of Present Illness Date Seen by Provider: May 15, 2019 Time Seen by Provider: 20:43 Initial Comments To ER per private vehicle from home with reports of slurred speech. He also noted some RIGHT sided facial droop He is a diabetic and he checked his sugar at that time and found it to be too high to read. He does take Levemir 30 units at bedtime and 35 units in the morning, no short acting insulin. His girlfriend's daughter states that he hasn't taken any of that in about 2 days "because he forgets" He has a history of TIAs. He states that his last hemoglobin A1c was about 12, he has neuropathy in lower extremities, blurred vision, has been told some slight kidney dysfunction and erectile dysfunction. Primary care referred him to Dr. Salmeron but states that he was too embarrassed to go to Dr. Salmeron so he never had this evaluated. He does also smoke 1/2-1 ppd he states. Severity: moderate Associated Symptoms: slurred speech (JUNE ARCINIEGA APRN) Allergies and Home Medications Allergies Coded Allergies: No Known Drug Allergies (Unverified , 03/31/17) Home Medications Aspirin 81 Mg Tablet.dr, 81 MG PO DAILY, (Reported) Citalopram Hydrobromide 40 Mg Tablet, 40 MG PO DAILY, (Reported) Clopidogrel Bisulfate 75 Mg Tablet, 75 MG PO DAILY Prescribed by: KEVIN SAMAYOA on 04/01/17 1117 Duloxetine HCl 30 Mg Capsule.dr, 30 MG PO DAILY, (Reported) Gabapentin 300 Mg/6 Ml Solution, 300 MG PO TID, (Reported) Glimepiride 4 Mg Tablet, 4 MG PO BID WITH MEALS, (Reported) Hydrocodone Bit/Acetaminophen 1 Each Tablet, 1 EACH PO Q8H PRN for PAIN-MODERATE TO SEVERE, (Reported) Lisinopril 5 Mg Tablet, 5 MG PO DAILY, (Reported) Lovastatin 10 Mg Tablet, 10 MG PO HS Prescribed by: KEVIN SAMAYOA on 04/01/17 1129 Metformin HCl 500 Mg Tablet, 1,000 MG PO BID WITH MEALS Hold for 3 days resume taking metformin on 03/09/18 Prescribed by: PETAR GARZA on 03/06/18 1101 Pioglitazone HCl 30 Mg Tablet, 30 MG PO DAILY WITH BREAKFAST, (Reported) Tramadol HCl 50 Mg Tablet, 50 MG PO Q6H PRN for PAIN-MILD TO MODERATE, (Reported) Patient Home Medication List Home Medication List Reviewed: Yes (JUNE ARCINIEGA APRN) Review of Systems Review of Systems Constitutional: see HPI Eyes: No Symptoms Reported Ears, Nose, Mouth, Throat: no symptoms reported Respiratory: no symptoms reported Cardiovascular: no symptoms reported Genitourinary: no symptoms reported Musculoskeletal: no symptoms reported Skin: no symptoms reported Psychiatric/Neurological: See HPI (JUNE ARCINIEGA APRN) Past Oninyet-Fbxgru-Ckfalp Hx Patient Social History Alcohol Beverage of Choice: Beer Type Used: Cigarettes Recent Foreign Travel: No Contact w/Someone Who Travel: No Recent Hopitalizations: No (JUNE ARCINIEGA APRN) Seasonal Allergies Seasonal Allergies: Yes (JUNE ARCINIEGA APRN) Past Medical History Surgeries: Yes (LOW BACK SURGERY ) Orthopedic Respiratory: Yes Pneumonia Cardiac: Yes Hypertension Neurological: Yes (TIA/CVA MARCH 2017--NO RESIDUAL) TIA Sexually Transmitted Disease: No HIV/AIDS: No Genitourinary: No Gastrointestinal: No Musculoskeletal: Yes (CHRONIC LEFT SIDED SCIATICA) Chronic Back Pain Endocrine: Yes Diabetes, Non-Insulin dep HEENT: No Cancer: No Psychosocial: No Integumentary: No Blood Disorders: No Adverse Reaction/Blood Tranf: No (JUNE ARCINIEGA APRN) Family Medical History Cardiovascular disease 19 FATHER Completed stroke paternal grandmother patrnal grandfather Coronary thrombosis paternal grandmother Diabetes mellitus G8 SISTER Hypercholesterolemia 19 FATHER G8 BROTHER Hypertension 19 FATHER G8 BROTHER Physical Exam Vital Signs Vital Signs - First Documented (RASHAAD RUELAS MD) Vital Signs Capillary Refill : (JUNE ARCINIEGA APRN) Height, Weight, BMI Height: 6'3.00" Weight: 209lbs. 9.0oz. 95.533504yx; 25.6 BMI Method:Estimated General Appearance: WD/WN, no apparent distress, other (he has some occasional stuttering during speech, he states that he does have this problem from time to time, that is not new. He also has some weakness with lifting the left leg up off the bed and some loss of sensation to the left leg that he states is per his baseline, is no different than normal. This was a result of 2 back surgeries at L4-L5 with subsequent sciatic nerve injury.) HEENT: PERRL/EOMI, normal ENT inspection Neck: non-tender, full range of motion Respiratory: no respiratory distress, no accessory muscle use Cardiovascular: regular rate, rhythm, no murmur Gastrointestinal: normal bowel sounds, non tender Extremities: normal range of motion, non-tender, other (plantar flexion 4/5 on the left, 5/ 5 on the right.) Neurologic/Psychiatric: alert, normal mood/affect, oriented x 3 Crainal Nerves: normal hearing, normal speech, PERRL Coordination/Gait: normal finger to nose Skin: normal color, warm/dry (JUNE ARCINIEGA APRN) Stroke Onset of Symptoms Date of Onset of Symptoms: May 15, 2019 Time of Symptom Onset: 17:00 Onset of Symptoms: Yes (JUNE ARCINIEGA APRN) NIH Stroke Scale Assessment Select: Initial Level of Consciousness: 0=Alert (0), Level of Consciousness- Questions: 0=Answers both month/age (0), LOC Commands: 0=Performs both tasks (0), Gaze: Normal (0), Visual Flores: 0=No visual loss (0), Facial Movement (Facial Paresis): 1=Minor paralysis (1), Motor Function-Arms Right: 0=No drift (0), Motor Function-Arms Left: 0=No drift (0), Motor Function-Legs Right: 0=No drift (0), Motor Function-Legs Left: 1=Drift . This is normal for him secondary to "sciatic nerve" (1), Limb Ataxia: 0=Absent (0), Sensory: 1=Mild to Moderate loss states this is also his baseline on the left leg (1), Best Language: 0=No aphasia (0), Dysarthria: 0=Normal (0), Extinction & Inattention: 0=No abnormality (0), Total: 3 Stroke Thrombolytic Exclusion Age 18 or Over: Yes Acute intenal hemorrhage: No History of CVA: Yes Uncontrolled Coagulation Defec: No Intracranial Hemorrhage: No Severe Hypertension: No GI or Bleed: No Subarachnoid Hemorrhage: No Intracranial Neoplasm/Aneurysm: No Oral Anticoagulants: Yes Surgery or Trauma: No Puncture of Non-Compressible V: No Recent CPR: No Diabetic Hemorrhagic Retinopat: No Organ Biopsy: No Recent Obstetric Delivery: No Glucose: No Significant Hepatic Dysfunctio: No NIH Stoke Scale >22: No Bacterial Endocarditis: No Pericarditis: No Improving Symptoms: No Platelets: No (JUNE ARCINIEGA APRN) Progress/Results/Core Measures Results/Orders Lab Results Laboratory Tests Test 05/15/19 20:41 05/15/19 20:42 05/15/19 21:15 05/15/19 21:58 Range/Units Glucometer 567 *H 185 H 70-110 MG/DL White Blood Count 7.9 4.3-11.0 10^3/uL Red Blood Count 4.89 4.35-5.85 10^6/uL Hemoglobin 15.8 13.3-17.7 G/DL Hematocrit 44 40-54 % Mean Corpuscular Volume 90 80-99 FL Mean Corpuscular Hemoglobin 32 25-34 PG Mean Corpuscular Hemoglobin Concent 36 32-36 G/DL Red Cell Distribution Width 12.1 10.0-14.5 % Platelet Count 220 130-400 10^3/uL Mean Platelet Volume 10.4 7.4-10.4 FL Neutrophils (%) (Auto) 61 42-75 % Lymphocytes (%) (Auto) 30 12-44 % Monocytes (%) (Auto) 8 0-12 % Eosinophils (%) (Auto) 1 0-10 % Basophils (%) (Auto) 0 0-10 % Neutrophils # (Auto) 4.8 1.8-7.8 X 10^3 Lymphocytes # (Auto) 2.3 1.0-4.0 X 10^3 Monocytes # (Auto) 0.6 0.0-1.0 X 10^3 Eosinophils # (Auto) 0.1 0.0-0.3 10^3/uL Basophils # (Auto) 0.0 0.0-0.1 10^3/uL Prothrombin Time 12.4 12.2-14.7 SEC INR Comment 0.9 0.8-1.4 Activated Partial Thromboplast Time 27 24-35 SEC D-Dimer <= 0.27 0.00-0.49 UG/ML Sodium Level 130 L 135-145 MMOL/L Potassium Level 4.7 3.6-5.0 MMOL/L Chloride Level 92 L 98-107 MMOL/L Carbon Dioxide Level 24 21-32 MMOL/L Anion Gap 14 5-14 MMOL/L Blood Urea Nitrogen 20 H 7-18 MG/DL Creatinine 1.62 H 0.60-1.30 MG/DL Estimat Glomerular Filtration Rate 46 BUN/Creatinine Ratio 12 Glucose Level 591 *H 70-105 MG/DL Calcium Level 9.7 8.5-10.1 MG/DL Corrected Calcium 9.5 8.5-10.1 MG/DL Total Bilirubin 0.4 0.1-1.0 MG/DL Aspartate Amino Transf (AST/SGOT) 12 5-34 U/L Alanine Aminotransferase (ALT/SGPT) 21 0-55 U/L Alkaline Phosphatase 89 40-136 U/L Troponin I < 0.028 <0.028 NG/ML Total Protein 6.7 6.4-8.2 GM/DL Albumin 4.2 3.2-4.5 GM/DL Beta-Hydroxybutyrate (Chem panel) 0.10 0.00-0.27 MMOL/L Urine Color YELLOW Urine Clarity CLEAR Urine pH 6 5-9 Urine Specific [place] 1.010 L 1.016-1.022 Urine Protein NEGATIVE NEGATIVE Urine Glucose (UA) 4+ H NEGATIVE Urine Ketones NEGATIVE NEGATIVE Urine Nitrite NEGATIVE NEGATIVE Urine Bilirubin NEGATIVE NEGATIVE Urine Urobilinogen NORMAL NORMAL MG/DL Urine Leukocyte Esterase NEGATIVE NEGATIVE Urine RBC (Auto) NEGATIVE NEGATIVE Urine RBC RARE /HPF Urine WBC NONE /HPF Urine Squamous Epithelial Cells RARE /HPF Urine Crystals NONE /LPF Urine Bacteria NEGATIVE /HPF Urine Casts NONE /LPF Urine Mucus NEGATIVE /LPF Urine Culture Indicated NO (RASHAAD RUELAS MD) My Orders Orders - RASHAAD RUELAS MD Ed Iv/Invasive Line Start (05/15/19 21:35) Lactated Ringers (Lr 1000 Ml Iv Solution (05/15/19 21:35) Fentanyl Injection (Sublimaze Injection (05/15/19 21:46) Orphenadrine Injection (Norflex Injectio (05/15/19 21:46) (RASHAAD RUELAS MD) Medications Given in ED Current Medications Medications Dose Ordered Sig/Anthony Route Start Time Stop Time Status Last Admin Dose Admin Insulin Human Regular 8 unit ONCE ONCE IV 05/15/19 20:45 05/15/19 20:46 DC 05/15/19 20:57 8 UNIT Lactated Ringer's 1,000 ml @ 0 mls/hr Q0M ONCE IV 05/15/19 21:35 05/15/19 21:36 DC 05/15/19 21:45 0 MLS/HR (RASHAAD RUELAS MD) Vital Signs/I&O 05/15/19 05/15/19 05/15/19 20:38 20:38 20:41 Temp 98.8 Pulse 101 101 Resp 18 18 B/P (MAP) 152/92 (112) 152/92 Pulse Ox 100 100 100 O2 Delivery Room Air Room Air (RASHAAD RUELAS MD) Progress Progress Note : Progress Note I have seen and evaluated the patient and assumed care from June Arciniega APRN. I agree with the plan of care. Blood sugar noted to be quite high and fluids and insulin have been ordered. I did have at length discussion with the patient regarding smoking cessation and diabetes management. Stroke protocol was initiated and is in progress. Mild finding of right facial droop noted. He does have left leg sensation decrease that is related to peripheral neuropathy and that is old. Does have some word searching. Time of onset for incident was about 3 PM. I did discuss with the patient and family regarding TPA and he is not a candidate due to outside timeframe but also low on stroke scale. Pending labs and CT. 2147: Patient is primary care with Dr. Petar Garza but he is out of town. Dr. Harrison is on-call for him. I did discuss the case with Dr. Harrison and he accepts patient for admission, inpatient status. Patient is having fairly significant bilateral lower leg pain that he says is typical. It does appear to be restless leg type but he states that he takes Flexeril 10 mg by mouth at night as well as tramadol or hydrocodone. Fentanyl 75 g IV and Norflex 60 mg IV ordered. Repeat dose of LR 1 L bolus was ordered and is running. We will continue IV fluids overnight. Patient will need reevaluation for his acute renal insufficiency and improved management of his blood sugars. He will get MRI in the morning. Patient and family agree with plan. (RASHAAD RUELAS MD) Initial ECG Impression Date: May 15, 2019 Initial ECG Impression Time: 20:59 Initial ECG Rate: 99 Initial ECG Rhythm: S.Tach Initial ECG Comparisson: Unchanged Comment Sinus rhythm with borderline tachycardia. And normal axis. No evidence of ST elevation PR. Similar to previous although previous T-wave abnormalities not noted currently from 03/05/18. Interpreted by me. (RASHAAD RUELAS MD) Diagnostic Imaging Diagonstic Imaging: CT Comments [facility]. [place], [place] NAME: RASHAAD REDDING MED REC#: [id number] PT STATUS: REG ER : 1970 PHYSICIAN: JUNE ARCINIEGA APRN ADMIT DATE: 05/15/19/ER Draft Date of Exam:05/15/19 CT HEAD WO-R/O STROKE PROCEDURE: CT head wo r/o stroke. TECHNIQUE: Multiple contiguous axial images were obtained through the brain without the use of intravenous contrast. Auto Exposure Controls were utilized during the CT exam to meet ALARA standards for radiation dose reduction. INDICATION: Left facial droop, slurred speech FINDINGS: There is no intracerebral hemorrhage. No hydrocephalus. No edema, mass, or mass effect is apparent. The basilar cisterns are patent. There is no sulcal effacement. There are no abnormal extra-axial fluid collections. Orbits, sinuses, and calvarium nonacute. IMPRESSION: No hemorrhage or edema. No acute finding identified. No change from previous exams. Dictated on workstation # [id number] Dict: 05/15/192050 Trans: 05/15/192058 JAYNE Interpreted by: RAFA PORTER Electronically signed by: Diagonstic Imaging: Xray Plain Films/CT/US/NM/MRI: chest Comments NAME: RASHAAD REDDING MED REC#: [id number] PT STATUS: REG ER : 1970 PHYSICIAN: JUNE ARCINIEGA APRN ADMIT DATE: 05/15/19/ER Signed Date of Exam: 05/15/19 CHEST 1 VIEW, AP/PA ONLY INDICATION: Slurred speech, facial droop FINDINGS: The lungs are clear. The heart and vessels normal. There is no effusion or pneumothorax. IMPRESSION: No acute appearing abnormality Dictated by: Dictated on workstation # [id number] Dict: 05/15/192144 Trans: 05/15/192151 Interpreted by: RAFA PORTER Electronically signed by: RAFA PORTER 05/15/192151 (RASHAAD RUELAS MD) Departure Communication (Admissions) Time/Spoke to Admitting Phy: 21:48 (RASHAAD RUELAS MD) Impression Primary Impression: Uncontrolled type 2 diabetes mellitus with hyperglycemia Additional Impressions: TIA (transient ischemic attack) Acute renal insufficiency Weakness on right side of face Disposition: ADMITTED INPATIENT Condition: Stable Admissions Decision to Admit Reason: Admit from ER (General) Decision to Admit/Date: May 15, 2019 Time/Decision to Admit Time: 21:48 (RASHAAD RUELAS MD) Departure-Patient Inst. Referrals: PETAR GARZA MD (PCP/Family) Primary Care Physician JUNE ARCINIEGA APRN May 15, 2019 20:47 RASHAAD RUELAS MD May 15, 2019 21:21
[2019-05-15 20:48] LABS: BASOPHILS % (AUTO) 0 % (0-10); EOSINOPHILS # (AUTO) 0.1 10^3/uL (0.0-0.3); EOSINOPHILS % (AUTO) 1 % (0-10); HEMATOCRIT 44 % (40-54); HEMOGLOBIN 15.8 G/DL (13.3-17.7); LYMPHOCYTES # (AUTO) 2.3 X 10^3 (1.0-4.0); LYMPHOCYTES % (AUTO) 30 % (12-44); MEAN CORPUSCULAR HEMOGLOBIN 32 PG (25-34); MEAN CORPUSCULAR HGB CONC 36 G/DL (32-36); MEAN CORPUSCULAR VOLUME 90 FL (80-99); MEAN PLATELET VOLUME 10.4 FL (7.4-10.4); MONOCYTES # (AUTO) 0.6 X 10^3 (0.0-1.0); MONOCYTES % (AUTO) 8 % (0-12); NEUTROPHILS # (AUTO) 4.8 X 10^3 (1.8-7.8); NEUTROPHILS % (AUTO) 61 % (42-75); PLATELET COUNT 220 10^3/uL (130-400); RED CELL DISTRIBUTION WIDTH 12.1 % (10.0-14.5); WHITE BLOOD COUNT 7.9 10^3/uL (4.3-11.0)
--- NOTE | 2019-05-15 20:59 | Diagnostic Imaging Report ---
PROCEDURE: CT head wo r/o stroke. TECHNIQUE: Multiple contiguous axial images were obtained through the brain without the use of intravenous contrast. Auto Exposure Controls were utilized during the CT exam to meet ALARA standards for radiation dose reduction. INDICATION: Left facial droop, slurred speech FINDINGS: There is no intracerebral hemorrhage. No hydrocephalus. No edema, mass, or mass effect is apparent. The basilar cisterns are patent. There is no sulcal effacement. There are no abnormal extra-axial fluid collections. Orbits, sinuses, and calvarium nonacute. IMPRESSION: No hemorrhage or edema. No acute finding identified. No change from previous exams. Dictated by: Dictated on workstation # [id number]
[2019-05-15 21:02] LABS: FIBRIN DEGRADATION PRODUCTS <= 0.27 UG/ML (0.00-0.49); INR 0.9 (0.8-1.4); PARTIAL THROMBOPLASTIN TIME 27 SEC (24-35); PROTHROMBIN TIME PATIENT 12.4 SEC (12.2-14.7)
[2019-05-15 21:05] LABS: ALANINE AMINOTRANSFERASE 21 U/L (0-55); ALBUMIN 4.2 GM/DL (3.2-4.5); ALKALINE PHOSPHATASE 89 U/L (40-136); BILIRUBIN,TOTAL 0.4 MG/DL (0.1-1.0); BUN/CREATININE RATIO 12; CALCIUM 9.7 MG/DL (8.5-10.1); CARBON DIOXIDE 24 MMOL/L (21-32); CHLORIDE 92 MMOL/L (98-107); CREATININE SERUM 1.62 MG/DL (0.60-1.30); GFR ESTIMATED 46; POTASSIUM 4.7 MMOL/L (3.6-5.0); SODIUM 130 MMOL/L (135-145); TOTAL PROTEIN 6.7 GM/DL (6.4-8.2)
[2019-05-15 21:27] LABS: BILIRUBIN,URINE NEGATIVE (NEGATIVE); CLARITY,URINE CLEAR; COLOR,URINE YELLOW; GLUCOSE, URINE (UA) 4+ (NEGATIVE); KETONES,URINE NEGATIVE (NEGATIVE); LEUKOCYTE ESTERASE ,URINE NEGATIVE (NEGATIVE); NITRITE,URINE NEGATIVE (NEGATIVE); PH,URINE 6 (5-9); PROTEIN,URINE NEGATIVE (NEGATIVE); UROBILINOGEN,URINE NORMAL (NORMAL)
[2019-05-15 21:30] LABS: GLUCOSE 591 MG/DL (70-105)
[2019-05-15] MEDS ORDERED: LACTATED RINGERS 1,000 ML IV ONE (21:35)
[2019-05-15 21:37] LABS: BACTERIA,URINE NEGATIVE /HPF; RBC,URINE RARE /HPF; SQUAMOUS EPITHELIAL CELL,UR RARE /HPF
[2019-05-15] MEDS ORDERED: fentaNYL INJECTION 100 MCG/2 ML AMP IVP STA (21:46)
[2019-05-15] MEDS ORDERED: ORPHENADRINE 60 MG/2 ML (NORFLEX) AMP IV STA (21:46)
--- NOTE | 2019-05-15 21:47 | Diagnostic Imaging Report ---
INDICATION: Slurred speech, facial droop FINDINGS: The lungs are clear. The heart and vessels normal. There is no effusion or pneumothorax. IMPRESSION: No acute appearing abnormality Dictated by: Dictated on workstation # [id number]
[2019-05-15 22:55] VITALS: BP 130/75
[2019-05-15] MEDS ORDERED: HYDROcodone/APAP 7.5 MG/325 MG (LORTAB, LORCET PLUS) TABLET PO PRN (23:00)
[2019-05-16] VITALS (7 sets, daily range): BP systolic 119–159; BP diastolic 65–88
[2019-05-16] MEDS: NS IV 1000 ML 1,000 ML IV SCH ×2 (00:36→08:00)
[2019-05-16 05:26] LABS: BASOPHILS % (AUTO) 1 % (0-10); EOSINOPHILS # (AUTO) 0.2 10^3/uL (0.0-0.3); EOSINOPHILS % (AUTO) 3 % (0-10); HEMATOCRIT 40 % (40-54); HEMOGLOBIN 13.8 G/DL (13.3-17.7); LYMPHOCYTES # (AUTO) 2.5 X 10^3 (1.0-4.0); LYMPHOCYTES % (AUTO) 41 % (12-44); MEAN CORPUSCULAR HEMOGLOBIN 31 PG (25-34); MEAN CORPUSCULAR HGB CONC 34 G/DL (32-36); MEAN CORPUSCULAR VOLUME 91 FL (80-99); MONOCYTES # (AUTO) 0.7 X 10^3 (0.0-1.0); MONOCYTES % (AUTO) 11 % (0-12); NEUTROPHILS # (AUTO) 2.7 X 10^3 (1.8-7.8); NEUTROPHILS % (AUTO) 44 % (42-75); PLATELET COUNT 185 10^3/uL (130-400); RED CELL DISTRIBUTION WIDTH 12.1 % (10.0-14.5); WHITE BLOOD COUNT 6.1 10^3/uL (4.3-11.0)
[2019-05-16 05:54] LABS: ALANINE AMINOTRANSFERASE 16 U/L (0-55); ALBUMIN 3.3 GM/DL (3.2-4.5); ALKALINE PHOSPHATASE 67 U/L (40-136); BILIRUBIN,TOTAL 0.3 MG/DL (0.1-1.0); BUN/CREATININE RATIO 16; CALCIUM 8.5 MG/DL (8.5-10.1); CARBON DIOXIDE 22 MMOL/L (21-32); CHLORIDE 104 MMOL/L (98-107); CHOLESTEROL 201 MG/DL (< 200); CREATININE SERUM 1.07 MG/DL (0.60-1.30); GFR ESTIMATED > 60; GLUCOSE 298 MG/DL (70-105); HDL CHOLESTEROL 28 MG/DL (40-60); POTASSIUM 4.2 MMOL/L (3.6-5.0); SODIUM 135 MMOL/L (135-145); TOTAL PROTEIN 5.2 GM/DL (6.4-8.2); TRIGLYCERIDES 333 MG/DL (<150); VLDL CHOLESTEROL 67 MG/DL (5-40)
[2019-05-16] MEDS: inSUlin ASPART (NovoLOG) 1 UNIT/0.01 ML (CHARGE PER UNIT) SC SCH ×4 (07:07→21:21)
--- NOTE | 2019-05-16 08:12 | History & Physicial ---
History of Present Illness History of Present Illness Reason for visit/HPI She came out to the emergency room. Patient states his left leg was numb yesterday. Yesterday speech became slurred and croupiness on right side of face. Patient not taking his insulin for the last few days. Blood sugar elevated. Renal insufficiency. Patient is smoker. Patient noncompliant area Surgeries 2 back surgeries Hemoglobin A1c recently 12 Date of Admission May 15, 2019 at 21:48 Time Seen by a Provider: 08:07 I consulted on this patient on 05/16/19 08:07 Attending Physician Jaquan Hernadez DO Admitting Physician Petar Garza MD Consult Allergies and Home Medications Allergies Coded Allergies: No Known Drug Allergies (Unverified , 03/31/17) Home Medications Aspirin 81 Mg Tablet.dr, 81 MG PO DAILY, (Reported) Citalopram Hydrobromide 40 Mg Tablet, 40 MG PO DAILY, (Reported) Clopidogrel Bisulfate 75 Mg Tablet, 75 MG PO DAILY Prescribed by: KEVIN SAMAYOA on 04/01/17 1117 Duloxetine HCl 30 Mg Capsule.dr, 30 MG PO DAILY, (Reported) Gabapentin 300 Mg/6 Ml Solution, 300 MG PO TID, (Reported) Glimepiride 4 Mg Tablet, 4 MG PO BID WITH MEALS, (Reported) Hydrocodone Bit/Acetaminophen 1 Each Tablet, 1 EACH PO Q8H PRN for PAIN-MODERATE TO SEVERE, (Reported) Lisinopril 5 Mg Tablet, 5 MG PO DAILY, (Reported) Lovastatin 10 Mg Tablet, 10 MG PO HS Prescribed by: KEVIN SAMAYOA on 04/01/17 1129 Metformin HCl 500 Mg Tablet, 1,000 MG PO BID WITH MEALS Hold for 3 days resume taking metformin on 03/09/18 Prescribed by: PETAR GARAZ on 03/06/18 1101 Pioglitazone HCl 30 Mg Tablet, 30 MG PO DAILY WITH BREAKFAST, (Reported) Tramadol HCl 50 Mg Tablet, 50 MG PO Q6H PRN for PAIN-MILD TO MODERATE, (Reported) Patient Home Medication List Home Medication List Reviewed: No Past Jsnbiyi-Lwmjha-Eiokfh Hx Patient Social History Alcohol Use: Occasionally Uses Number of Drinks Today: AA Alcohol Beverage of Choice: Beer Recreational Drug Use: No Type Used: Cigarettes Recent Foreign Travel: No Contact w/other who traveled: No Recent Hopitalizations: No Recent Infectious Disease Expo: No Seasonal Allergies Seasonal Allergies: Yes Surgeries Yes (LOW BACK SURGERY ) Orthopedic Respiratory Yes Cardiovascular Yes Hypertension Neurological Yes (TIA/CVA MARCH 2017--NO RESIDUAL) TIA Reproductive System Sexually Transmitted Disease: No HIV/AIDS: No Genitourinary No Gastrointestinal No Musculoskeletal Yes (CHRONIC LEFT SIDED SCIATICA) Chronic Back Pain Endocrine History of Endocrine Disorders: Yes Endocrine Disorders: Diabetes, Non-Insulin dep HEENT History of HEENT Disorders: No Cancer No Psychosocial History of Psychiatric Problem: No Integumentary History of Skin or Integumenta: No Blood Transfusions History of Blood Disorders: No Adverse Reaction to a Blood Tr: No Family Medical History Family Hx: Cardiovascular disease 19 FATHER Completed stroke paternal grandmother patrnal grandfather Coronary thrombosis paternal grandmother Diabetes mellitus G8 SISTER Hypercholesterolemia 19 FATHER G8 BROTHER Hypertension 19 FATHER G8 BROTHER Review of Systems Constitutional: weakness EENTM: other (Croupiness right side of face) Respiratory: no symptoms reported Cardiovascular: no symptoms reported Gastrointestinal: no symptoms reported Physical Exam Vital Signs Vital Signs - First Documented Capillary Refill : Less Than 3 Seconds Height, Weight, BMI Height: 6'3.00" Weight: 196lbs. 8.0oz. 89.322170ir; 24.6 BMI Method:Stated General Appearance: No Apparent Distress, WD/WN Eyes: Bilateral Eye Normal Inspection HEENT: Normal ENT Inspection Neck: Full Range of Motion, Normal Inspection Respiratory: Lungs Clear, No Accessory Muscle Use, No Respiratory Distress Cardiovascular: Regular Rate, Rhythm, No Murmur Gastrointestinal: Non Tender, Soft Assessment/Plan Assessment and Plan Uncontrolled type II diabetes. Transit ischemic attack. Acute renal insufficiency. Weakness of right side of face. droopy of right side of face. Slurred speech Admission Diagnosis Admission Status: Inpatient Order (span 2 midnights) Reason for Inpatient Admission: Uncontrolled diabetes. TIA. Renal insufficiency. Hyperglycemia Clinical Quality Measures DVT/VTE Risk/Contraindication: Risk Factor Score Per Nursin RFS Level Per Nursing on Admit: 2=Moderate Stroke: Date of last known well: May 15, 2019 Time of last known well: 17:00 JAQUAN HERNADEZ DO May 16, 2019 08:12
[2019-05-16] MEDS ORDERED: CYCL10TA9 PO (08:52)
[2019-05-16] MEDS ORDERED: BREX2TAB PO (08:52)
[2019-05-16] MEDS ORDERED: DULO60CA59 PO (08:52)
[2019-05-16] MEDS ORDERED: CLOP75TA69 PO (08:52)
[2019-05-16] MEDS ORDERED: INSU100I29 SC (08:52)
[2019-05-16] MEDS ORDERED: LOVA10TA PO (08:52)
[2019-05-16] MEDS ORDERED: HYDR-3816 PO (08:52)
[2019-05-16] MEDS ORDERED: PANT40TA3 PO (08:52)
[2019-05-16] MEDS ORDERED: GABAPENTIN 300 MG (NEURONTIN) CAP PO SCH ×2 (09:00→21:00)
[2019-05-16] MEDS ORDERED: METF-397 PO (09:54)
[2019-05-16] MEDS ORDERED: GBPN600T PO (09:54)
--- NOTE | 2019-05-16 09:59 | NUR ---
SPOKE WITH THE PATIENT ABOUT HIS MEDICATIONS. WE WENT OVER THE EXT MED HX AND HE VERIFIED HOW HE TAKES THEM. HE IS PAST DUE FOR REFILL ON A FEW OF HIS MEDICATIONS AND I NOTED THE PAST DUE FILL DATE ON THE MED REC: 03-02-19 LOVASTATIN 10MG #30 01-28-19 PLAVIX 75MG #90 IN ADDITION TO THE EXT MED HX HE REPORTS TAKING GABAPENTIN AND METFORMIN. I CALLED [facility] TO VERIFY THE LAST FILL DATES AND NOTED THE PAST DUE FILL DATE ON THE MED REC. 12-06-18 GABAPENTIN 600MG TID #270 11-17-18 METFORMIN 500MG 2 BID #360 HE STATES HE IS TAKING PROTONIX DAILY NOW, HE STOPPED TAKING IT FOR AWHILE BUT HIS STOMACH ACID RETURNED SO HE WILL TAKE IT REGULARLY FROM NOW ON.
--- NOTE | 2019-05-16 11:58 | Diagnostic Imaging Report ---
PROCEDURE: US carotid duplex, bilateral. TECHNIQUE: Multiple real-time grayscale images were obtained over the carotid arteries in various projections, bilaterally. Additional spectral analysis and color Doppler duplex images were also obtained. INDICATION: Transient ischemic attack. FINDINGS: Mild plaquing in the proximal right ICA is noted. The left carotid system is unremarkable. Velocities are unremarkable bilaterally. No significant velocity elevation or stenosis is seen. Both vertebral arteries demonstrate antegrade flow. IMPRESSION: No evidence of a hemodynamically significant stenosis. Parameters based on the consensus panel Coleman-Scale and Doppler ultrasound criteria published August 2003, Radiology, Volume 229. DOPPLER (peak systolic velocity M/S Right Left CCA 1.13 1.27 ICA Proximal .79 .86 ICA Mid .78 1.04 ICA Distal .89 1.06 RATIO 1.57 .82 ECA 1.57 1.46 VERT .63 .59 Dictated by: Dictated on workstation # [id number]
[2019-05-16] MEDS: GABAPENTIN 600 MG (NEURONTIN) TAB PO SCH ×2 (14:00→21:22)
[2019-05-16] MEDS: metFORMIN 500 MG (GLUCOPHAGE) TAB PO SCH (18:29)
[2019-05-16] MEDS ORDERED: CYCLOBENZAPRINE 10 MG (FLEXERIL) TAB PO SCH (21:00)
[2019-05-16] MEDS ORDERED: SIMvastatin 10 MG (ZOCOR) TAB PO SCH (21:00)
[2019-05-16] MEDS ORDERED: ASPIRIN E.C. 81 MG (ECOTRIN) TAB PO SCH (21:00)
[2019-05-17 04:04] VITALS: BP 146/87
[2019-05-17 05:41] LABS: HEMOGLOBIN 13.3 G/DL (13.3-17.7); MEAN PLATELET VOLUME 9.7 FL (7.4-10.4); RED CELL DISTRIBUTION WIDTH 12.2 % (10.0-14.5); WHITE BLOOD COUNT 7.7 10^3/uL (4.3-11.0)
[2019-05-17] MEDS: metFORMIN 500 MG (GLUCOPHAGE) TAB PO SCH (05:49)
[2019-05-17 05:59] LABS: ALANINE AMINOTRANSFERASE 17 U/L (0-55); ALBUMIN 3.2 GM/DL (3.2-4.5); ALKALINE PHOSPHATASE 71 U/L (40-136); BILIRUBIN,TOTAL 0.2 MG/DL (0.1-1.0); BUN/CREATININE RATIO 22; CALCIUM 8.5 MG/DL (8.5-10.1); CARBON DIOXIDE 19 MMOL/L (21-32); CHLORIDE 110 MMOL/L (98-107); CREATININE SERUM 1.21 MG/DL (0.60-1.30); GFR ESTIMATED > 60; GLUCOSE 152 MG/DL (70-105); POTASSIUM 4.1 MMOL/L (3.6-5.0); SODIUM 138 MMOL/L (135-145); TOTAL PROTEIN 5.2 GM/DL (6.4-8.2)
[2019-05-17] MEDS: inSUlin ASPART (NovoLOG) 1 UNIT/0.01 ML (CHARGE PER UNIT) SC SCH ×3 (06:00→16:14)
[2019-05-17 08:02] VITALS: BP 151/72
[2019-05-17] MEDS ORDERED: CLOPIDOGREL 75 MG (PLAVIX) TABLET PO SCH (09:00)
[2019-05-17] MEDS ORDERED: PANTOPRAZOLE 40 MG (PROTONIX) TAB PO SCH (09:00)
[2019-05-17] MEDS ORDERED: lisINopril 5 MG (PRINIVIL) TABLET PO SCH (09:00)
[2019-05-17] MEDS: GABAPENTIN 600 MG (NEURONTIN) TAB PO SCH ×2 (09:09→13:50)
[2019-05-17 11:46] VITALS: BP 152/89
[2019-05-17 14:30] VITALS: BP 152/89
--- NOTE | 2019-05-17 16:55 | Progress Note - Hospitalist ---
Progress Note Progress Notes/Assess & Plan Date Seen 05/17/19 Time Seen by Provider: 16:49 Assessment & Plan The patient is a 49-year-old white male who is diabetic and has been for about 10 years. Curiously he is not having has not been obese. He admits to well less than rigidity appearance to diet and lowering his hemoglobin A1c to the 7 range. He reports that his last was about 12. He in fact had not taken his prescribed insulin a couple of days prior to his appearance here. He reports that several years ago and what was called a TIA he developed a right facial droop which is not pronounced but still exists. He is presently full of enthusiasm and wishes to dedicate himself to better diabetic control. Physical exam: He is up and about, slender, and pleasant. Lungs are clear to auscultation. CV is regular. Abdomen shows pinch a bull inch but is reasonably flat. Examination of the face shows a moderate effacement of the right nasolabial fold. There is no ptosis. There is minimal if any loss of the ability to furrow the brow. Impression: Diabetes, poorly controlled. 2.partial right facial nerve palsy. Plan: Discharge. Commit to aggressive management of diabetes. Stop smoking. LISA PEGUERO MD May 17, 2019 16:55
[2019-05-17 16:56] VITALS: BP 147/71
[2019-05-17] MEDS ORDERED: INSU100I14 SQ (17:00)
--- NOTE | 2019-05-17 17:04 | Discharge Inst-Simple/Standard ---
Discharge Inst-Standard Patient Instructions/Follow Up Plan of Care/Instructions/FU: Make an appointment to see Dr. Redd next week. Commit to the new YOU and a hemoglobin A1c below 7.5. Stop smoking as it is especially bad for diabetic blood vessels Activity as Tolerated: Yes Discharge Diet: ADA Diet LISA PEGUERO MD May 17, 2019 17:04
--- NOTE | 2019-05-19 08:00 | Discharge Summary ---
Diagnosis/Chief Complaint Date of Admission May 15, 2019 at 21:48 Date of Discharge May 17, 2019 at 18:00 Discharge Date: May 17, 2019 Discharge Time: 07:58 Discharge Diagnosis Uncontrolled diabetes. Right facial droop. Tobaccoism. Transit ischemic attack. Acute renal failure. Slurred speech. Noncompliance. Reason Hospital Visit She came out to the emergency room. Patient states his left leg was numb yesterday. Yesterday speech became slurred and croupiness on right side of face. Patient not taking his insulin for the last few days. Blood sugar elevated. Renal insufficiency. Patient is smoker. Patient noncompliant area Surgeries 2 back surgeries Hemoglobin A1c recently 12 Discharge Summary Discharge Physical Examination Allergies: Coded Allergies: No Known Drug Allergies (Unverified , 03/31/17) Vitals & I&Os Vital Signs Date Time Temp Pulse Resp B/P (MAP) Pulse Ox O2 Delivery O2 Flow Rate FiO2 05/17/19 16:56 96.5 79 20 147/71 (96) 99 Room Air Hospital Course Patient in hospital did better Patient discharged home Labs (last 24 hrs) Laboratory Tests 05/15/19 20:41: Glucometer 567*H 05/15/19 20:42: White Blood Count 7.9, Red Blood Count 4.89, Hemoglobin 15.8, Hematocrit 44, Mean Corpuscular Volume 90, Mean Corpuscular Hemoglobin 32, Mean Corpuscular Hemoglobin Concent 36, Red Cell Distribution Width 12.1, Platelet Count 220, Mean Platelet Volume 10.4, Neutrophils (%) (Auto) 61, Lymphocytes (%) (Auto) 30, Monocytes (%) (Auto) 8, Eosinophils (%) (Auto) 1, Basophils (%) (Auto) 0, Neutrophils # (Auto) 4.8, Lymphocytes # (Auto) 2.3, Monocytes # (Auto) 0.6, Eosinophils # (Auto) 0.1, Basophils # (Auto) 0.0, Prothrombin Time 12.4, INR Comment 0.9, Activated Partial Thromboplast Time 27, D-Dimer <= 0.27, Sodium Level 130L, Potassium Level 4.7, Chloride Level 92L, Carbon Dioxide Level 24, Anion Gap 14, Blood Urea Nitrogen 20H, Creatinine 1.62H, Estimat Glomerular Filtration Rate 46, BUN/Creatinine Ratio 12, Glucose Level 591*H, Calcium Level 9.7, Corrected Calcium 9.5, Total Bilirubin 0.4, Aspartate Amino Transf (AST/SGOT) 12, Alanine Aminotransferase (ALT/SGPT) 21, Alkaline Phosphatase 89, Troponin I < 0.028, Total Protein 6.7, Albumin 4.2, Beta-Hydroxybutyrate (Chem panel) 0.10 05/15/19 21:15: Urine Color YELLOW, Urine Clarity CLEAR, Urine pH 6, Urine Specific [place] 1.01 0L, Urine Protein NEGATIVE, Urine Glucose (UA) 4+H, Urine Ketones NEGATIVE, Urine Nitrite NEGATIVE, Urine Bilirubin NEGATIVE, Urine Urobilinogen NORMAL, Urine Leukocyte Esterase NEGATIVE, Urine RBC (Auto) NEGATIVE, Urine RBC RARE, Urine WBC NONE, Urine Squamous Epithelial Cells RARE, Urine Crystals NONE, Urine Bacteria NEGATIVE, Urine Casts NONE, Urine Mucus NEGATIVE, Urine Culture Indicated NO 05/15/19 21:58: Glucometer 185H 05/16/19 05:06: White Blood Count 6.1, Red Blood Count 4.39, Hemoglobin 13.8, Hematocrit 40, Mean Corpuscular Volume 91, Mean Corpuscular Hemoglobin 31, Mean Corpuscular Hemoglobin Concent 34, Red Cell Distribution Width 12.1, Platelet Count 185, Mean Platelet Volume 10.0, Neutrophils (%) (Auto) 44, Lymphocytes (%) (Auto) 41, Monocytes (%) (Auto) 11, Eosinophils (%) (Auto) 3, Basophils (%) (Auto) 1, Neutrophils # (Auto) 2.7, Lymphocytes # (Auto) 2.5, Monocytes # (Auto) 0.7, Eosinophils # (Auto) 0.2, Basophils # (Auto) 0.0, Sodium Level 135, Potassium Level 4.2, Chloride Level 104, Carbon Dioxide Level 22, Anion Gap 9, Blood Urea Nitrogen 17, Creatinine 1.07, Estimat Glomerular Filtration Rate > 60, BUN/Creatinine Ratio 16, Glucose Level 298H, Calcium Level 8.5, Corrected Calcium 9.1, Total Bilirubin 0.3, Aspartate Amino Transf (AST/SGOT) 11, Alanine Aminotransferase (ALT/SGPT) 16, Alkaline Phosphatase 67, Total Protein 5.2L, Albumin 3.3, Triglycerides Level 333H, Cholesterol Level 201H, LDL Cholesterol Direct 107, VLDL Cholesterol 67H, HDL Cholesterol 28L 05/16/19 07:01: Glucometer 242H 05/16/19 10:34: Glucometer 144H 05/16/19 16:24: Glucometer 263H 05/16/19 19:58: Glucometer 258H 05/17/19 05:15: Glucometer 145H 05/17/19 05:30: White Blood Count 7.7, Red Blood Count 4.28L, Hemoglobin 13.3, Hematocrit 40, Mean Corpuscular Volume 92, Mean Corpuscular Hemoglobin 31, Mean Corpuscular Hemoglobin Concent 34, Red Cell Distribution Width 12.2, Platelet Count 187, Mean Platelet Volume 9.7, Sodium Level 138, Potassium Level 4.1, Chloride Level 110H, Carbon Dioxide Level 19L, Anion Gap 9, Blood Urea Nitrogen 27H, Creatinine 1.21, Estimat Glomerular Filtration Rate > 60, BUN/Creatinine Ratio 22, Glucose Level 152H, Calcium Level 8.5, Corrected Calcium 9.1, Total Bilirubin 0.2, Aspar [place] Amino Transf (AST/SGOT) 14, Alanine Aminotransferase (ALT/SGPT) 17, Alkaline Phosphatase 71, Total Protein 5.2L, Albumin 3.2 05/17/19 09:30: Glucometer 202H Laboratory Tests 05/15/19 20:42 05/16/19 05:06 05/17/19 05:30 Pending Labs Laboratory Tests 05/15/19 20:41: Glucometer 567 05/15/19 20:42: White Blood Count 7.9, Red Blood Count 4.89, Hemoglobin 15.8, Hematocrit 44, Mean Corpuscular Volume 90, Mean Corpuscular Hemoglobin 32, Mean Corpuscular Hemoglobin Concent 36, Red Cell Distribution Width 12.1, Platelet Count 220, Mean Platelet Volume 10.4, Neutrophils (%) (Auto) 61, Lymphocytes (%) (Auto) 30, Monocytes (%) (Auto) 8, Eosinophils (%) (Auto) 1, Basophils (%) (Auto) 0, Neutrophils # (Auto) 4.8, Lymphocytes # (Auto) 2.3, Monocytes # (Auto) 0.6, Eosinophils # (Auto) 0.1, Basophils # (Auto) 0.0, Prothrombin Time 12.4, INR Comment 0.9, Activated Partial Thromboplast Time 27, D-Dimer <= 0.27, Sodium Level 130, Potassium Level 4.7, Chloride Level 92, Carbon Dioxide Level 24, Anion Gap 14, Blood Urea Nitrogen 20, Creatinine 1.62, Estimat Glomerular Filtration Rate 46, BUN/Creatinine Ratio 12, Glucose Level 591, Calcium Level 9.7, Corrected Calcium 9.5, Total Bilirubin 0.4, Aspartate Amino Transf (AST/SGOT) 12, Alanine Aminotransferase (ALT/SGPT) 21, Alkaline Phosphatase 89, Troponin I < 0.028, Total Protein 6.7, Albumin 4.2, Beta-Hydroxybutyrate (Chem panel) 0.10 05/15/19 21:15: Urine Color YELLOW, Urine Clarity CLEAR, Urine pH 6, Urine Specific [place] 1.010, Urine Protein NEGATIVE, Urine Glucose (UA) 4+, Urine Ketones NEGATIVE, Urine Nitrite NEGATIVE, Urine Bilirubin NEGATIVE, Urine Urobilinogen NORMAL, Urine Leukocyte Esterase NEGATIVE, Urine RBC (Auto) NEGATIVE, Urine RBC RARE, Urine WBC NONE, Urine Squamous Epithelial Cells RARE, Urine Crystals NONE, Urine Bacteria NEGATIVE, Urine Casts NONE, Urine Mucus NEGATIVE, Urine Culture Indicated NO 05/15/19 21:58: Glucometer 185 05/16/19 05:06: White Blood Count 6.1, Red Blood Count 4.39, Hemoglobin 13.8, Hematocrit 40, Mean Corpuscular Volume 91, Mean Corpuscular Hemoglobin 31, Mean Corpuscular Hemoglobin Concent 34, Red Cell Distribution Width 12.1, Platelet Count 185, Mean Platelet Volume 10.0, Neutrophils (%) (Auto) 44, Lymphocytes (%) (Auto) 41, Monocytes (%) (Auto) 11, Eosinophils (%) (Auto) 3, Basophils (%) (Auto) 1, Neutrophils # (Auto) 2.7, Lymphocytes # (Auto) 2.5, Monocytes # (Auto) 0.7, Eosinophils # (Auto) 0.2, Basophils # (Auto) 0.0, Sodium Level 135, Potassium Level 4.2, Chloride Level 104, Carbon Dioxide Level 22, Anion Gap 9, Blood Urea Nitrogen 17, Creatinine 1.07, Estimat Glomerular Filtration Rate > 60, BUN/Creatinine Ratio 16, Glucose Level 298, Calcium Level 8.5, Corrected Calcium 9.1, Total Bilirubin 0.3, Aspartate Amino Transf (AST/SGOT) 11, Alanine Aminotransferase (ALT/SGPT) 16, Alkaline Phosphatase 67, Total Protein 5.2, Albumin 3.3, Triglycerides Level 333, Cholesterol Level 201, LDL Cholesterol Direct 107, VLDL Cholesterol 67, HDL Cholesterol 28 05/16/19 07:01: Glucometer 242 05/16/19 10:34: Glucometer 144 05/16/19 16:24: Glucometer 263 05/16/19 19:58: Glucometer 258 05/17/19 05:15: Glucometer 145 05/17/19 05:30: White Blood Count 7.7, Red Blood Count 4.28, Hemoglobin 13.3, Hematocrit 40, Mean Corpuscular Volume 92, Mean Corpuscular Hemoglobin 31, Mean Corpuscular Hemoglobin Concent 34, Red Cell Distribution Width 12.2, Platelet Count 187, Mean Platelet Volume 9.7, Sodium Level 138, Potassium Level 4.1, Chloride Level 110, Carbon Dioxide Level 19, Anion Gap 9, Blood Urea Nitrogen 27, Creatinine 1.21, Estimat Glomerular Filtration Rate > 60, BUN/Creatinine Ratio 22, Glucose Level 152, Calcium Level 8.5, Corrected Calcium 9.1, Total Bilirubin 0.2, Aspartate Amino Transf (AST/SGOT) 14, Alanine Aminotransferase (ALT/SGPT) 17, Alkaline Phosphatase 71, Total Protein 5.2, Albumin 3.2 05/17/19 09:30: Glucometer 202 Discharge Home Medications: Active Scripts Active Novolog Flexpen (Insulin Aspart) 300 Units/3 Ml Solution 5 Units SQ AC Reported Metformin HCl 500 Mg Tablet 1,000 Mg PO BID LAST FILLED #360 11-17-18 Gabapentin 600 Mg Tablet 600 Mg PO TID LAST FILLED #270 12-06-18 Plavix (Clopidogrel Bisulfate) 75 Mg Tablet 75 Mg PO DAILY LAST FILLED #90 01-28-19 Lovastatin 10 Mg Tablet 10 Mg PO HS LAST FILLED #30 03-02-19 Rexulti (Brexpiprazole) 2 Mg Tablet 2 Mg PO HS Pantoprazole Sodium 40 Mg Tablet.dr 40 Mg PO DAILY Hydrocodone-Acetamin 7.5-325 (Hydrocodone/Acetaminophen) 1 Each Tablet 1 Tab PO BID PRN Cyclobenzaprine HCl 10 Mg Tablet 10 Mg PO TID PRN Levemir Flextouch (Insulin Detemir) 100 Unit/1 Ml Insuln.pen 35 Units SC BID Duloxetine HCl 60 Mg Capsule.dr 60 Mg PO BID Lisinopril 5 Mg Tablet 5 Mg PO DAILY Aspirin EC (Aspirin) 81 Mg Tablet.dr 81 Mg PO HS Tramadol HCl 50 Mg Tablet 50 Mg PO BID PRN Instructions to patient/family Please see electronic discharge instructions given to patient. Clinical Quality Measures DVT/VTE Risk/Contraindication: Risk Factor Score Per Nursin RFS Level Per Nursing on Admit: 2=Moderate Contraindications-Pharm: Other *list below* Stroke: Date of last known well: May 15, 2019 Time of last known well: 17:00 JAQUAN HERNADEZ DO May 19, 2019 08:00
== END 2019-05-17 18:00 | disposition home or self-care (01) | DRG 638 ==
LOC: EDUNIT# 20:35 → ER 20:36 → 4TH 21:48
PROVIDERS: ADMIT Family Medicine; ATTEND Family Medicine
DX: E11.65 Type 2 diabetes mellitus with hyperglycemia (principal); G45.9 Transient cerebral ischemic attack, unspecified; N17.9 Acute kidney failure, unspecified; R29.810 Facial weakness; R47.81 Slurred speech; F17.210 Nicotine dependence, cigarettes, uncomplicated; E11.42 Type 2 diabetes mellitus with diabetic polyneuropathy; I10 Essential (primary) hypertension; M54.42 Lumbago with sciatica, left side; Z79.4 Long term (current) use of insulin; Z91.19 Patient's noncompliance with other medical treatment and regimen; Z87.01 Personal history of pneumonia (recurrent)
CPT/HCPCS: 36415; 70450; 71045; 80053; 80061; 81000; 82010; 82962; 84484; 85025; 85027; 85379; 85610; 85730; 93005; 93041; 93306; 93880; 96361; 96374; 96375

== ENCOUNTER 2020-01-10 17:54 | Observation (INO) | payer MEDICARE ==
[~2020-01-10] VITALS: Ht 188 cm; Wt 87.2 kg
[~2020-01-10 17:54] MED LIST changes: +BREX2TAB PO; +CLOP75TA69 PO; +CYCL10TA9 PO; +DULO60CA59 PO; +GBPN600T PO; -GLIM4TAB PO; +GLIM4TAB5 PO; +INSU100I14 SQ; +INSU100I29 SC; +PANT40TA3 PO; -TRAM50TA2 PO; +TRM50T PO
--- OUTSIDE RECORDS SUMMARY | 2020-01-10 18:01 | XMS REPORT ---
Author Author [employer]. Organization [employer] Address [address] [address] Care Team Providers Care [facility] Psychiatrist Name Role Phone ADDY GARZA Unavailable KEVIN SAMAYOA DO Unavailable Unavailable DANITA JENKINS, KEVIN Unavailable Unavailable ADDY GARZA Unavailable ADDY GARZA PCP REBECCA VERAS Unavailable CUI, JAY Unavailable S[place] ROS[place] MANUEL Unavailable MARIO CHOI, KIP Unavailable Unavailable S[place] ROSAJ[place] MANUEL Unavailable MARIELENA CHOI, LISA Goel Unavailable Unavailable LISA PEGUERO MD Unavailable Unavailable ADDY GARZA MD Unavailable Unavailable Rabia BARTLETT MD Unavailable Unavailable FLOYD BARTLETT MD Unavailable Unavailable SAMAYOA DO, KEVIN Unavailable Unavailable SAMAYOA DO, KEVIN Unavailable Unavailable GELLENDER DO, JAQUAN A Unavailable Unavailable GELLENDER DO, JAQUAN A Unavailable Unavailable MARIO CHOI, KIP Goel Unavailable Unavailable RASHAAD RUELAS MD Unavailable Unavailable [facility] PCP Allergies Normalized Allergy Reported Date of Reaction(s) Care Provider Facility Allergy Type classification allergen Allergy Onset DA (20 Unclassified No Known Drug 03-31-2017 - no information KEVIN SAMAYOA , Not Available sources.) Allergies DO (07517) Medications Current Medications Medication Ingredient Drug Dose Dates Status Sig Sig Care Class(es) (Normalized) (Original) Provid er acetaminoph acetaminoph Opioid Active no Hydrocodone/ no en 325 mg / en / Agonist information Acetaminophe name HYDROcodone HYDROcodone n Active 1 (no bitartrate Translation ORAL Twice A phone) 7.5 mg oral s: [ Day as tablet (10 Hydrocodone needed for sources.) -Acetaminop Pain-Moderat hen 7.5-325 e MG] 05-16-2019 Completed no Acetamin no name inform ophen/Hy (no ation drocodon phone) e Bitart Disconti nued 1 ORAL Every 8HRS as needed for Pain-Mod erate To Severe May 16, 2019 Active take 1 Hydrocod no name tablet one-Acet (no by aminophe phone) mouth n every 7.5-325 six MG hours Orally as every 6 needed hrs 1 tablet as needed 6h Active aspirin 81 aspirin Nonsteroida 81 mg Active no Aspirin no mg delayed Translation l information Active 81 name release s: [ Anti-inflam ORAL Bedtime (no oral tablet Aspirin 81 matory Drug phone) (9 MG Delayed sources.) Release Oral Tablet [Aspir-Low] , Aspir-Low 81 MG] brexpiprazo brexpiprazo Atypical 2 mg 12-12-19 Active take 1 R exulti 2 MG no le 2 mg le Antipsychot 19 tablet by Orally Once n rosmery oral tablet Translation ic mouth once a day 1 (no (4 s: [ daily tablet 24h phone) sources.) Rexulti 2 Nov, MG] 30 day(s) Active 1 mg Active take 1 Brexpipr no name tablet azole 1 (no by MG phone) mouth Orally once Once a daily day 1 tablet 24h 30 day(s) Active cyclobenzap cyclobenzap Muscle Active no Cyclobenzapr no rine rine Relaxant information ine Hcl name hydrochlori Translation Active 10 (no de 10 mg s: [ ORAL Three phone) oral tablet Cyclobenzap Times A Day (3 rine HCl 10 as needed sources.) MG] for Muscle Spasms 10 mg Active take 1 Cycloben no name tablet zaprine (no by HCl 10 phone) mouth MG by at oral bedtim route at e bedtime 1 tablet Active DULoxetine DULoxetine Serotonin 30 mg 05-16-20 Complete no Duloxetine no 60 mg Translation and 19 d information Hcl name delayed s: [ Norepinephr Discontinued (no release duloxetine ine 30 ORAL phone) oral 60 MG Reuptake Daily May capsule (10 Delayed Inhibitor 2018 sources.) Release Oral Capsule, Duloxetine HCl 60 MG] 60 mg Active no Duloxeti no name inform ne Hcl (no ation Active phone) 60 ORAL Twice A Day gabapentin gabapentin Anti-epilep 34122 05-16-20 Complete no Gabapentin no 600 mg oral Translation tic Agent mg/mL 19 d informatio n Discontinued name tablet (10 s: [ 300 ORAL (no sources.) gabapentin Three Times phone) 600 MG Oral A Day May Gabapentin 600 MG] 600 mg Active no Gabapent no name inform in (no ation Active phone) 600 ORAL Three Times A Day LAST FILLED #270 12-06-18 3 ml insulin Insulin 30 Active no Insulin no insulin detemir Analog [IU] information Detemir name detemir 100 Translation Active 35 (no unt/ml pen s: [ SUBCUTANEOUS phone) injector (3 Levemir Twice A Day sources.) FlexTouch 100 UNIT/ML] no Insulin no Active no Insulin no information Detemir 100 information information Detemir 100 name (1 source.) UNIT/ML UNIT/ML as (no directed phone) Active 3 ml Insulin, Insulin 05-18-20 Active no Insulin no insulin, Aspart, Analog 19 information Aspart name aspart, Human Active 5 (no human 100 SUBCUTANEOUS phone) unt/ml pen Before Meals injector (May source.) 2018 5:00pm lisinopril lisinopril Angiotensin 5 mg Active no Lisinopril no 5 mg oral Translation Converting information Active 5 name tablet (9 s: [ Enzyme ORAL Daily (no sources.) Lisinopril Inhibitor phone) 5 MG] pantoprazol pantoprazol Proton Pump Active no Pantopra zole no e 40 mg e Inhibitor information Sodium name delayed Active 40 (no release ORAL Daily phone) oral tablet (1 source.) traMADol traMADol Opioid Active no Tramadol Hcl no hydrochlori Translation Agonist information Active 50 name de 50 mg s: [ ORAL Twice A (no oral tablet Tramadol Day as phone) (10 HCl 50 MG] needed for sources.) Pain-Moderat e 50 mg Active no Tramadol no name inform HCl 50 (no ation MG as phone) directed Active Completed/Discontinued Medications Medication Ingredient Drug Dose Dates Status Sig Sig Care Class(es) (Normalized) (Original) Provid er citalopram citalopram Serotonin 40 mg 05-16-20 Complete no Citalopram no 40 mg oral Reuptake 19 d information Hydrobromide name tablet (7 Inhibitor Discontinued (no sources.) 40 ORAL phone) Daily May 16, 2019 clopidogrel clopidogrel P2Y12 75 mg 04-01-20 Complete no C lopidogrel no 75 mg oral Translation Platelet 17 - d information Bisulf ate name tablet (10 s: [ Inhibitor 05-16-20 Discontinued (no sources.) Clopidogrel 19 75 ORAL phone) Bisulfate Daily 30 75 MG, April 01 Clopidogrel 2016 11:17am Bisulfate] May 16, 2019 glimepiride glimepiride Sulfonylure 4 mg 05-16-20 Complete no Glimepiride no 4 mg oral a 19 d information Discontinued name tablet (7 4 ORAL Twice (no sources.) A Day With phone) Meals May 16, 2019 lovastatin lovastatin HMG-CoA 10 mg 04-01-20 Complete no Lo vastatin no 10 mg oral Translation Reductase 17 - d information Disco ntinued name tablet (10 s: [ Inhibitor 05-16-20 10 ORAL (no sources.) Lovastatin 19 Bedtime 30 phone) 10 MG] April 01, 2017 11:29am May 16, 2019 metFORMIN metFORMIN Biguanide 1000 03-06-20 Complete take 2 Me tformin Addy C hydrochlori Translation mg 18 - d tablets by Hcl 500 Mg Stewar de 500 mg s: [ 03-06-20 mouth twice Tablet 1,000 t (no oral tablet Metformin 18 daily at Mg ORAL phone) (16 hydrochlori mealtime Twice A Day sources.) de 1000 MG With Meals Oral 60 Tab Hold Tablet, for 3 days Metformin resume HCl 1000 taking MG] metformin on 03/09/18 03/06/18 1000 mg Active take 1 Metformi no name tablet n HCl (no by 1000 MG phone) mouth Orally 2 twice times a daily day 1 at tablet mealti with a me meal 12h 30 day(s) Active 500 mg 03-06-2018 Completed no Metformi (no inform n Hcl phone) ation 500 Mg Tablet, 1000 Mg Oral Twice A Day With Meals Disconti nued pioglitazon pioglitazon Peroxisome 30 mg 05-16-20 Complete no Pioglitazone no e 30 mg e Proliferato 19 d information Hcl nam e oral tablet r Receptor Discontinued (no (7 alpha 30 ORAL phone) sources.) Agonist, Daily With Peroxisome Breakfast Proliferato May 16 r Receptor 2018 gamma Agonist, Thiazolidin edione Problems Active Problems Problem Normalized Date of Normalized Normalized Provider Fac ility Classification Problem(s) Problem Problem Problem Sta tus Onset/Resoluti Duration on Acute and Acute kidney 12-09-2019 - Episodic Active JAQUAN [facility] Via unspecified failure, DO [place] HERNADEZ renal failure unspecified Hospital - (8 sources.) [place] ([address]) Other diseases Acute renal Episodic Active COMMUNITY Ascen daniel Via of kidney and insufficiency [facility] [place] ureters (1 [address] Hospital source.) (76078) Other upper Acute upper Episodic Active JOSÉ MANUEL CUI Comm [place] [facility] [id number] [place] [address] Center infections (3 infection, of [facility] sources.) unspecified [place] ([address]) Translations: [ - Acute URI J06.9] Adjustment Adjustment Chronic Active REBECCA YUNER Commun ity disorders (20 disorder with [facility] sources.) anxiety of [place] Translations: [place] () [ - Acute adjustment disorder with anxiety F43.22, Adjustment disorder with anxious mood, Acute adjustment disorder with anxiety] Attention-defi Attention Chronic Active REBECCA MALCOLMER Com munity cit conduct deficit [address] [place] [address] and disruptive hyperactivity of [facility] behavior disorder [place] () disorders (4 Translations: sources.) [ ADHD (attention deficit hyperactivity disorder)] Attention-defi Attention-defi Chronic Active REBECCA MALCOLMER Community cit conduct cit [address] [place] [address] and disruptive hyperactivity of [facility] behavior disorder, [place] () disorders (20 unspecified sources.) type Translations: [ - ADHD (attention deficit hyperactivity disorder) F90.9] Other and Cerebral Chronic Active COMMUNITY [place] Via ill-defined ischemia CENTER[facility] cerebrovascula [facility] r disease (1 (06755) source.) Acute Cerebrovascula 12-09-2019 - Chronic Active ADDY STEW ART Via [facility] cerebrovascula r accident due [facility] Hospital r disease (23 to cerebral [place] sources.) artery (28937) occlusion Translations: [ CEREBRAL INFARCTION, UNSPECIFIED, Cerebrovascula r accident (CVA)] Residual Chronic pain Episodic Active COMMUNITY [place] Via codes; [facility] unclassified [facility] (1 source.) (74726) Fluid and Dehydration 12-09-2019 - Episodic Active LISA ODKE RS [facility] Via electrolyte MD [place] disorders (13 Hospital - sources.) [place] (50766) Mood disorders Depressive Chronic Active REBECCA ROECKER Co mmunity (4 sources.) disorder [id number] [place] [address] Center Translations: of [place] [ Depressive [place] ([address]26) disorder] Diabetes Diabetes no information Active ADDYSarah GARZA Via C hristi mellitus mellitus [address] [place] [address] without without [place] complication complication (42476) (6 sources.) Other diseases Disorder of 12-09-2019 - Episodic Active LISA ODGERS [facility] Via of kidney and kidney and , MD [place] ureters (13 ureter, Hospital - sources.) unspecified [place] (31327) Other Facial 12-09-2019 - Episodic Active LISA ODGERS [facility] Via connective weakness , MD [place] tissue disease Hospital - (21 sources.) [place] (17372) Other injuries Heat Episodic Active ADDY KAYLA Via C hristi and conditions exhaustion [address] [place] [address] due to Translations: [place] external [ Heat (68986) causes (7 exhaustion] sources.) Other injuries Heat 12-09-2019 - Episodic Active LISA OD GERS [facility] Via and conditions exhaustion, , MD [place] due to unspecified, Hospital - external initial [place] causes (13 encounter (61465) sources.) Essential Hypertensive 12-09-2019 - Chronic Active KEVIN JARED ER , Not Available hypertension disorder DO (29767) (20 sources.) Translations: [ ESSENTIAL (PRIMARY) HYPERTENSION, Hypertension] Other Hypomagnesemia 12-09-2019 - Chronic Active LISA OD GERS [facility] Via nutritional; , MD [place] endocrine; and Hospital - metabolic [place] disorders (13 (56401) sources.) Other Hypomagnesemia Chronic Active ADDY KAYLA Via [place] nutritional; Translations: [address] [place] [address] endocrine; and [ [place] metabolic Hypomagnesemia (64440) disorders (7 ] sources.) 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 LISA ODGERS [facility] Via aftercare (18 (current) use , MD [place] sources.) of aspirin [facility] ([address]118) Other [facility] 12-09-2019 - Episodic Active JAQUAN [facility] Via aftercare (8 (current) use DO [place] HERNADEZ sources.) of insulin [facility] (27960) Other [facility] 12-09-2019 - Episodic Active LISA ODGERS [facility] Via aftercare (8 (current) use , MD [place] sources.) of oral Hospital - hypoglycemic [place] drugs (27063) Spondylosis; Lumbago with 12-09-2019 - Episodic Active no name no information intervertebral sciatica, left disc side disorders; Translations: other back [ LOW BACK problems (21 PAIN, SPINAL sources.) STENOSIS, LUMBAR REGION WITHOUT N] Substance-rela Nicotine 12-09-2019 - Chronic Active KEVIN GAR NER , Not Available [facility]uis disorders dependence, DO (80669) (20 sources.) cigarettes, uncomplicated Translations: [ NICOTINE DEPENDENCE, UNSPECIFIED, UNCOMP] Other nervous Other chronic Chronic Active ADDY KAYLA V marilu [place] system pain [address] Hospital disorders (4 [place] sources.) (68959) Other Other long 12-09-2019 - Episodic Active LISA ODGERS [facility] Via aftercare (18 term (current) , MD [place] sources.) drug therapy Hospital - [place] (10114) Residual Other 12-09-2019 - Episodic Active KIP MARIO [facility] Via codes; specified MD [place] unclassified postprocedural Hospital - (3 sources.) states [place] (50460) Other nervous Other speech 12-09-2019 - Episodic Active KEVIN SAMAYOA , [facility] Via system disturbances DO [place] disorders (3 Hospital - sources.) [place] ([address]) Other Other symptoms 12-09-2019 - Episodic Active LISA OD GERS [facility] Via connective and signs , MD [place] tissue disease involving the Hospital - (13 sources.) musculoskeleta [place] l system (80472) Impulse Pathological Chronic Active REBECCA WILKERSONALLYALO Commu nity control gambling [address] [facility] Center disorders NEC Translations: of [place] (20 sources.) [ - Gambling [place] (26316) disorder, episodic F63.0, Compulsive gambling, Gambling disorder, episodic] Residual Patient's 12-09-2019 - Episodic Active JAQUAN [facility] Via codes; noncompliance DO [place] HERNADEZ unclassified with other Hospital - (8 sources.) medical [place] treatment and (67414) regimen Residual Patient's 12-09-2019 - Episodic Active LISA ODGERS [facility] Via codes; other MD [place] unclassified noncompliance Hospital - (13 sources.) with [place] medication (36023) regimen Peripheral and Peripheral 12-09-2019 - Chronic Active MD TRI Not Available visceral vascular (26945) atherosclerosi disease, s (20 unspecified sources.) Other lower Personal 12-09-2019 - Episodic Active JAQUAN [facility] Via respiratory history of DO [place] HERNADEZ disease (8 pneumonia Hospital - sources.) (recurrent) [place] (92895) Other nervous Polyneuropathy 12-09-2019 - Chronic Active ADDY KAYLA , Not Available system , unspecified (01400) disorders (20 sources.) Other lower Radiologic Episodic Active COMMUNITY [place] Via respiratory infiltrate of CENTER/K [place] disease (1 lung 59161 Hospital source.) (13681) Other nervous Slurred speech 12-09-2019 - Episodic Active RICH CAYLA [facility] Via system DO [place] HERNADEZ disorders (8 Hospital - sources.) [place] (46058) Spondylosis; Spinal 12-09-2019 - Chronic Active KIP COOP ER [facility] Via intervertebral stenosis, MD [place] disc lumbar region Hospital - disorders; without [place] other back neurogenic (26675) problems (5 claudication sources.) Translations: [ SPONDYLOSIS W/O MYELOPATHY OR RADICULOPA] Spondylosis; Spondylosis Chronic Active KIP MARIO Not Available intervertebral without , (09792) disc myelopathy or disorders; radiculopathy, other back lumbar region problems (7 Translations: sources.) [ SPINAL STENOSIS, LUMBAR REGION WITHOUT N] Transient Transient 12-09-2019 - Chronic Active KEVIN DANITA , Not Available cerebral cerebral DO (91949) ischemia (25 ischemic sources.) attack, unspecified Translations: [ OTH TRANSIENT CEREBRAL ISCHEMIC ATTACKS , TRANSIENT CEREBRAL ISCHEMIC ATTACK, UNSP] Diabetes Type 2 12-09-2019 - Chronic Active LISA PEGUERO [facility] Via mellitus with diabetes , MD [place] complications mellitus with Hospital - (33 sources.) hyperglycemia [place] Translations: (23599) [ TYPE 2 DIABETES MELLITUS WITH DIABETIC P, TYPE 2 DIABETES MELLITUS WITH HYPERGLYCE, TYPE 2 DIABETES W DIABETIC PERIPHERAL AN, TYPE 2 DIABETES MELLITUS WITH FOOT ULCER, Type 2 diabetes mellitus with hyperglycemia, Uncontrolled type 2 diabetes mellitus with hyperglycemia] Diabetes Type 2 12-09-2019 - Chronic Active KEVIN DANITA , Not Available mellitus diabetes DO (77195) without mellitus complication without (23 sources.) complications Translations: [ Maturity onset diabetes of young (AFSHAN)] Malaise and Weakness 12-09-2019 - Episodic Active KEVIN DANITA , [facility] Via fatigue (13 DO [place] sources.) [facility] (62646) Other Weakness of Episodic Active COMMUNITY [place] Via connective right facial [facility] tissue disease muscle [address] [place] [address] (1 source.) (86761) Unclassified no information no information Active ADDY STEWA RT Via [facility] (18 sources.) [address] [place] [address] ([address]) Past or Other Problems Problem Normalized Date of Normalized Normalized Provider Fac ility Classification Problem(s) Problem Problem Problem Sta tus Onset/Resoluti Duration on Other [facility] no information no information LISA PEGUERO [facility] Via aftercare (10 (current) use , [place] sources.) of oral Hospital hypoglycemic [place] drugs (98633) Mood disorders Major no information no information REBECCA ROE CKER Community (20 sources.) depressive [address] [place] [address] disorder, of [facility] (69195) episode, unspecified Translations: [ - Depressive disorder F32.9] Residual Other no information no information KIP MARTIN Not Available codes; specified , (58922) unclassified postprocedural (6 sources.) states Other nervous Other speech no information no information KEVIN SAMAYOA , Not Available system disturbances DO (69249) disorders (10 sources.) Unclassified Spinal no information no information KIP HILLMANOP ER Not Available (2 sources.) stenosis, , (77177) lumbar region without neurogenic claudication Diabetes Type 2 no information no information MD TRI V [facility] Via mellitus with diabetes [facility] complications mellitus with Hospital - (2 sources.) diabetic [place] peripheral (97381) angiopathy without gangrene Procedures Procedure Normalized Procedure Procedure Result Performer Facility Date 08-13-2018 Cardiac event no information Rabia BARTLETT Ascen daniel Via [facility] ([id number]) 08-13-2018 - 08-13-2018 03-05-2018 Computed tomography of no information SELIN Manasa BHAGATO Via [facility] - head and neck [place] (42379) 03-05-2018 - 03-05-2018 03-05-2018 Computed tomography of no information SELIN Manasa BHAGATO Via [facility] head without contrast [place] (000 00) 03-05-2018 - 03-05-2018 08-13-2018 Echocardiography no information Rabia BARTLETT As cension Via [facility] (13729) 08-13-2018 - 08-13-2018 03-06-2018 Echocardiography no information LISA PEGUERO Vi a [facility] ([id number]) 03-06-2018 - 03-06-2018 03-06-2018 Electrocardiographic no information LISA Manasa MARIELENA Via [facility] - procedure [place] ([id number]) 03-06-2018 - 03-06-2018 03-05-2018 Electrocardiographic no information SELIN BIRDMerlyn Goel Via [facility] - procedure [facility] (0000 0) 03-05-2018 - 03-05-2018 03-06-2018 Magnetic resonance no information LISA Manasa MARIELENA Via [facility] - imaging of brain [place] (74888) 03-06-2018 without then with - contrast 03-06-2018 03-06-2018 Plain chest X-ray no information LISA PEGUERO V ia [facility] (12644) 03-06-2018 - 03-06-2018 03-05-2018 Plain chest X-ray no information SELIN MATTHEW Via [facility] ([id number]) 03-05-2018 - 03-05-2018 01-02-2019 Psychotherapy no information no name (no phone) Co [facility] w/patient 60 minutes [facility] ([id number]) 12-26-2018 Psychotherapy no information no name (no phone) Co [facility] w/patient 60 minutes [facility] ([id number]) 12-17-2018 Psychotherapy no information no name (no phone) Co [facility] w/patient 60 minutes [facility] (11069) Immunizations Normalized Immunization Date Notes Care Provider Facili ty Immunization Vaccination no information ADDY GARZA [id number] Via [facility] Translations: [ [place] (56519) vaccine] Results Test Name Value Interpretation Reference Range Date Time Fa cility (Normalized) (Normalized) (Medline Reference) venous blood hemoglobin measurement (mass/volume) on 2018-03-06 Hemoglobin (HGB) 14.7 g/dL (no code) 12 - 18 g/dL Via [facility] (55248) serum or plasma urea nitrogen/creatin ine mass ratio on 2018-03-06 BUN/Creatinine 21 mg/mg (no code) 10 - 20 mg/mg Via [facility] (14569) serum or plasma urea nitrogen measurement (mass/volume) on 2018-03-06 Urea nitrogen 27 mg/dL (H) 7 - 20 mg/dL Via [facility] (44846) serum or plasma troponin i.cardiac measurement (mass/volume) on 2018-03-06 Troponin I no information (no code) Via [facility] (48692) serum or plasma sodium measurement (moles/volume) on 2018-03-06 Sodium 139 mmol/L (no code) 135 - 147 mmol/L Via [facility] (35487) serum or plasma potassium measurement (moles/volume) on 2018-03-06 Potassium 3.7 mmol/L (no code) 3.5 - 5.1 mmol/L Via [facility] (82538) serum or plasma phosphate measurement (mass/volume) on 2018-03-06 Phosphate 4.3 mg/dL (no code) 4 - 6.5 mg/dL Via [facility] (97717) serum or plasma glucose measurement (mass/volume) on 2018-03-06 Glucose 271 mg/dL (H) 60 - 125 mg/dL Via [facility] (20973) serum or plasma creatinine measurement with calculation of estimated glomerular filtration rate on 2018-03-06 eGFR (non-black) no information (no code) Via [facility] (29739) serum or plasma creatinine measurement (mass/volume) on 2018-03-06 Creatinine 1.26 mg/dL (no code) Via [facility] (02568) serum or plasma chloride measurement (moles/volume) on 2018-03-06 Chloride 103 mmol/L (no code) 95 - 106 mmol/L Via [facility] (67474) serum or plasma calcium measurement (mass/volume) on 2018-03-06 Calcium 8.5 mg/dL (no code) 9 - 11 mg/dL Via [facility] (21934) serum or plasma anion gap determination (moles/volume) on 2018-03-06 Anion gap 12 mmol/L (no code) 3 - 11 mmol/L Via [facility] (08559) magnesium on 2018-03-06 Magnesium 2.7 mg/dL (H) 1.8 - 3.6 mg/dL Via [facility] (09756) glucose mean estimated using hba1c on 2018-03-06 Glucose 235 mg/dL (H) 60 - 125 mg/dL Via [facility] (06951) carbon dioxide on 2018-03-06 CO2 24 mmol/L (no code) 23 - 29 mmol/L Via [facility] (23169) blood neutrophils automated count (number/volume) on 2018-03-06 Neutrophils 3.4 10*3/uL (no code) 1.5 - 7.8 Via [facility] 10*3/[facility] (96600) blood monocytes/100 leukocytes on 2018-03-06 Monocytes/100 11 % (no code) 2 - 8 % Via [facility] (38460) blood monocytes automated count (number/volume) on 2018-03-06 Monocytes 0.7 10*3/uL (no code) 0.2 - 1.1 Via [facility] 10*3/uL [facility] (86271) blood lymphocytes automated count (number/volume) on 2018-03-06 Lymphocytes 2.3 10*3/uL (no code) 0.85 - 4.1 Via [facility] 10*3/uL [facility] (03874) blood leukocytes automated count (number/volume) on 2018-03-06 WBC (Leukocytes) 6.5 10*3/uL (no code) 3.8 - 10.8 [facility] 10*3/uL [facility] ([id number]) blood hemoglobin a1c measurement (mass/volume) on 2018-03-06 HbA1c 9.8 % (H) 3.6 - 5.7 % [facility] ([id number]) blood hematocrit (volume fraction) on 2018-03-06 Hematocrit (HCT) 42 % (no code) 39 - 51 % [facility] ([id number]) blood erythrocytes automated count (number/volume) on 2018-03-06 Erythrocytes 4.67 10*6/uL (no code) 4.2 - 6.1 [facility] (RBC) 10*6/uL [facility] ([id number]) automated erythrocyte mean corpuscular volume on 2018-03-06 MCV 90 fL (no code) 80 - 100 fL [facility] ([id number]) automated erythrocyte mean corpuscular hemoglobin concentration measurement (mass/volume) on 2018-03-06 MCHC 35 g/dL (no code) 32 - 36 g/dL [facility] ([id number]) automated erythrocyte mean corpuscular hemoglobin (mass per erythrocyte) on 2018-03-06 MCH 32 pg (no code) 27 - 31 pg [facility] ([id number]) automated erythrocyte distribution width ratio on 2018-03-06 RDW-CA 12.4 % (no code) 11 - 15 % [facility] ([id number]) automated eosinophil count on 2018-03-06 Eosinophils 0.1 10*3/uL (no code) 0.05 - 1.5 [facility] 10*3/uL [facility] ([id number]) automated blood platelet mean volume measurement on 2018-03-06 Platelet mean 10.2 fL (no code) 7.2 - 11.7 fL [facility] (PMV) [facility] ([id number]) automated blood platelet count (count/volume) on 2018-03-06 Platelets 204 10*3/uL (no code) 150 - 400 [facility] 10*3/uL [facility] ([id number]) automated blood neutrophils/100 leukocytes on 2018-03-06 Neutrophils/100 52 % (no code) 40 - 60 % Via [facility] leukocytes [facility] ([id number]) automated blood lymphocytes/100 leukocytes on 2018-03-06 Lymphocytes/100 35 % (no code) 20 - 40 % [facility] leukocytes [facility] ([id number]) automated blood eosinophils/100 leukocytes on 2018-03-06 Eosinophils/100 2 % (no code) 1 - 4 % Via [facility] ([id number]) automated blood basophils/100 leukocytes on 2018-03-06 Basophils/100 0 % (no code) 0.5 - 1 % Via [facility] ([id number]) automated blood basophil count (count/volume) on 2018-03-06 Basophils 0.0 10*3/uL (no code) 0 - 0.2 10*3/uL [facility] ([id number]) serum or plasma troponin i.cardiac measurement (mass/volume) on 2018-03-05 Troponin I no information (no code) [facility] ([id number]) serum or plasma total bilirubin measurement (mass/volume) on 2018-03-05 Bilirubin 0.3 mg/dL (no code) 0.3 - 1.9 mg/dL [facility] (total) [facility] ([id number]) serum or plasma protein measurement (mass/volume) on 2018-03-05 Protein 6.3 g/dL (L) 6.4 - 8.3 g/dL [facility] ([id number]) serum or plasma aspartate aminotransferase measurement (enzymatic activity/volume) on 2018-03-05 Aspartate 16 U/L (no code) 10 - 34 U/L [facility] aminotransferase [facility] ([facility] [place] ([id number]) serum or plasma alkaline phosphatase measurement (enzymatic activity/volume) on 2018-03-05 Alkaline 71 U/L (no code) 44 - 147 U/L [facility] phosphatase [facility] ([facility] [place] ([id number]) serum or plasma albumin measurement (mass/volume) on 2018-03-05 Albumin 4.1 g/dL (no code) 3.5 - 5.5 g/dL [facility] ([id number]) serum or plasma alanine aminotransferase measurement (enzymatic activity/volume) on 2018-03-05 Alanine 16 U/L (no code) 10 - 40 U/L [facility] aminotransferase [facility] (ALT) [place] ([id number]) prothrombin time (pt) in platelet poor plasma by coagulation assay on 2018-03-05 Coagulation 13.4 s (no code) [facility] tissue factor [facility] induced in [place] platelet poor () plasma myoglobin, serum on 2018-03-05 Myoglobin 149.2 ng/mL (H) [facility] ([id number]) inr in platelet poor plasma or blood by coagulation assay on 2018-03-05 INR in blood by 1.0 {INR} (no code) 0.9 - 1.1 {INR} Via [facility] coagulation [facility] ([id number]) capillary blood glucose measurement by glucometer (mass/volume) on 2018-03-05 Glucose 85 mg/dL (no code) 60 - 125 mg/dL [facility] ([id number]) activated partial thromboplastin time (aptt) in platelet poor plasma bycoagulation assay on 2018-03-05 aPTT 28 s (no code) 25 - 35 s [facility] ([id number]) Vital Signs Vital Sign Value Interpretation Reference Date Time Care Prov ider Facility (Normalized) (Normalized) Range BMI (Body Mass 24.3 kg/m2 (no code) 15 - 25 kg/m2 12-12-2018 RO PINEDA RITO Community Index) 08:00-0500 [id number] [facility] ([id number]) Body weight 88.18 kg (no code) kg 12-12-2018 REBECCA WILKERSONRUBY [facility] 08:00-0500 33360 [facility] ([id number]) Height 190.5 cm (no code) cm 12-12-2018 REBECCA VERAS [facility] 08:00-0500 92120 [facility] ([id number]) Interventions No Information Plan of Treatment Normalized Care Care Detail Care Activity Date Care Provider F acility Activity (30) [facility]OS[facility]UI [id number] F[facility] 30 min [place] ([id number]) (-FU-60) [facility] 02-14-2019 REBECCA VERAS 46469 [facility] F/u 60 min [place] ([id number]) (-FU-60) [facility] 02-07-2019 REBECCA VERAS 46892 [facility] F/u 60 min [place] ([id number]) (-FU-60) [facility] 01-31-2019 REBECCA VERAS 61324 [facility] F/u 60 min [place] ([id number]) (-FU-60) [facility] 01-24-2019 REBECCA VERAS 37487 [facility] F/u 60 min [place] ([id number]) (-FU-60) [facility] 03-14-2019 JOSÉ MANUEL CIU 20911 [facility] F/u 60 min [place] ([id number]) (-FU-60) [facility] 03-07-2019 JOSÉ MANUEL CUI 97581 [facility] F/u 60 min [place] ([id number]) (-FU-60) [facility] 02-28-2019 JOSÉ MANUEL CUI 19013 [facility] F/u 60 min [place] ([id number]) (BH-FU-60) [facility] 05-29-2019 JOSÉ MANUEL CUI 52739 [facility] F/u 60 min [place] ([id number]) (BH-FU-60) [facility] 05-22-2019 JOSÉ MANUELMerlyn ALMEIDACUI 09658 [facility] FQ [facility] F/u 60 min [place] ([id number]) (BH-FU-60) [facility] 05-15-2019 JOSÉ MANUELMerlyn ALMEIDACUI 26055 [facility] F/u 60 min [place] ([id number]) (PSY-FU-20) [facility] 04-10-2019 - REBECCA VERAS [id number] [facility] F/U 20 [facility] 04-10-2019 - [facility] 04-10-2019 [place] ([id number]) [facility] 08-08-2019 J[place]É [place] [address] [address] [facility] ([id number]) [facility] 07-25-2019 [place] [address] [address] [facility] ([id number]) [facility] 07-11-2019 JOSÉ MANUEL [place] [address] 62 [facility] ([id number]) Patient Education LOOP RECORDER no information [facility] [address] [place] [address] ([id number]) Patient referral no information no information [facility] [place] [address] [place] [address] ([id number]) Goals Patient Goal Desired Goal no information no information Social History Normalized Code Original Code Date Value no information no information no information Smokes tobacco daily (finding) Tobacco smoking status Tobacco smoking status no information Smokes tobacco daily NHIS NHIS (finding) no information no information 12-11-2019 Occasionally Us es no information no information 05-15-2019 No no information no information 12-11-2019 Current Everyda y Smoker no information no information 12-11-2019 Cigarettes Sex Assigned At Sex Assigned At no information M shannon Functional Status The data below is from unstructured sources Query Response Date Kumar rded Patient Orientation Person Place Time Situation Eyes Open March 06, 2018 11:00am Comprehension Ability Understands Co ncepts March 06, 2018 11:00am No Functional Status information available Mental Status The data below is from unstructured sourcesNo Mental Status Information Available Encounters Encounter Normalized Encounter Encounter Diagnosis Care Provi adin Organization Date Type 02-21-2019 () Behavioral Major depressive JOSÉ MANUEL MIDDLETO N [facility] 30 min disorder, single phone) (no phone) 02-21-2019 episode, unspecified - 02-21-2019 2019 ([facility]-30) Behavioral Adjustment disorder JOSÉ MANUEL ALEENADL ETON (no [employer] [facility] - Health F/u 30 min with anxiety phone) (no abimbola ne) 2019 - 2019 04-04-2019 ([facility]-60) Behavioral Major depressive JOSÉ MANUEL MIDDLETO N (no [facility] F/u 60 min disorder, single phone) (no phone) 04-04-2019 episode, unspecified - 04-04-2019 03-14-2019 ([facility]-60) Behavioral Major depressive JOSÉ MANUEL MIDDLETO N (no [facility] F/u 60 min disorder, single phone) (no phone) 03-14-2019 episode, unspecified - 03-14-2019 03-07-2019 [facility] Behavioral Major depressive JOSÉ MANUEL MIDDLETO N (no [facility] F/u 60 min disorder, single phone) (no phone) 03-07-2019 episode, unspecified - 03-07-2019 02-14-2019 [facility] Behavioral Major depressive JOSÉ MANUEL MIDDLETO N (no [facility] F/u 60 min disorder, single phone) (no phone) 02-14-2019 episode, unspecified - 02-14-2019 02-07-2019 [facility] Behavioral Major depressive JOSÉ MANUEL MIDDLETO N (no [facility] F/u 60 min disorder, single phone) (no phone) 02-07-2019 episode, unspecified - 02-07-2019 01-31-2019 (-FU-60) Behavioral Attention-deficit JOSÉ MANUEL MIDDLET ON (no [facility] - Health F/u 60 min hyperactivity phone) (no ph one) 01-31-2019 disorder, unspecified - type 01-31-2019 01-24-2019 (-FU-60) Behavioral Attention-deficit JOSÉ MANUEL MIDDLET ON (no [facility] - Health F/u 60 min hyperactivity phone) (no ph one) 01-24-2019 disorder, unspecified - type 01-24-2019 01-09-2019 (-FU-60) Behavioral Major depressive JOSÉ MANUEL MIDDLETO N (no [facility] - Health F/u 60 min disorder, single phone) (no phone) 01-09-2019 episode, unspecified - 01-09-2019 01-02-2019 (-FU-60) Behavioral Major depressive JOSÉ MANUEL MIDDLETO N (no [facility] - Health F/u 60 min disorder, single phone) (no phone) 01-02-2019 episode, unspecified - 01-02-2019 12-26-2018 (-FU-60) Behavioral Major depressive JOSÉ MANUEL MIDDLETO N (no [facility] - Health F/u 60 min disorder, single phone) (no phone) 12-26-2018 episode, unspecified - 12-26-2018 12-17-2018 (-FU-60) Behavioral Adjustment disorder JOSÉ MANUEL MIDDL ETON (no [employer] [facility] Health F/u 60 min with anxiety phone) (no abimbola ne) 12-17-2018 - 12-17-2018 12-10-2018 (-FU-60) Behavioral Adjustment disorder JOSÉ MANUEL MIDDL ETON (no [facility] F/u 60 min with anxiety phone) (no abimbola ne) 12-10-2018 - 12-10-2018 11-28-2018 (-FU-60) Behavioral Adjustment disorder JOSÉ MANUEL MIDDL ETON (no [employer] [facility] Health F/u 60 min with anxiety phone) (no abimbola ne) 11-28-2018 - 11-28-2018 11-15-2018 (BH-INTAKE) Behavioral Adjustment disorder JOSÉ MANUEL MIDD LETON (no [facility] - Health Intake with anxiety phone) (no phone) 11-15-2018 - -04-10-2019 (PSY-FU-20) Psychiatry Adjustment disorder REBECCA BELTRAN (no [facility] - F/U 20 min with anxiety phone) (no phone) 04-10-2019 - 04-10-2019 01-09-2019 (PSY-FU-20) Psychiatry Adjustment disorder REBECCA BELTRAN (no [facility] - F/U 20 min with anxiety phone) (no phone) 01-09-2019 - 01-09-2019 12-12-2018 (PSY-FU-20) Psychiatry Adjustment disorder REBECCA BELTRAN (no [facility] - F/U 20 min with anxiety phone) (no phone) 12-12-2018 - 12-12-2018 11-12-2018 (PSY-INTAKE) Adjustment disorder REBECCA WILKERSONRUBY (no [facility] - Psychiatry Intake with anxiety phone) (no abimbola ne) 11-12-2018 - 11-12-2018 02-19-2019 (WALK-IN) [facility] - respiratory infection, phone) CARE (n o phone) 02-19-2019 unspecified - 02-19-2019 12-11-2019 Admission to day no information (no phone) [facility] (no phone) 12-11-2019 06-27-2019 [facility] Major depressive JOSÉ MANUEL MIDDLETO N (no [facility] disorder, single phone) (no phone) episode, unspecified 05-29-2019 [facility] Major depressive JOSÉ MANUEL MIDDLETO N (no [facility] disorder, single phone) (no phone) episode, unspecified 05-22-2019 [facility] Major depressive JOSÉ MANUEL MIDDLETO N (no [facility] disorder, single phone) (no phone) episode, unspecified 05-09-2019 [facility] Major depressive JOSÉ MANUEL MIDDLETO N (no [facility] disorder, single phone) (no phone) episode, unspecified 11-14-2018 Discharged Recurring no information ADDY C KAYLA Work no organization name - (no phone) 11-14-2018 10-04-2018 Discharged Recurring no information ADDY C KAYLA Work no organization name - (no phone) 10-14-2018 09-06-2018 Discharged Recurring no information M TERRY BARTLETT Work no organization name - (no phone) 11-12-2018 08-13-2018 Discharged Recurring no information M TERRY BARTLETT Work no organization name - (no phone) 11-12-2018 07-15-2018 Discharged Recurring no information ADDY C KAYLA Work no organization name - (no phone) 10-14-2018 07-10-2018 Discharged Recurring no information ADDY C KAYLA Work no organization name - (no phone) 07-15-2018 05-15-2019 Emergency department no information no name (no abimbola ne) no organization name patient visit (no phone) 03-05-2018 Emergency department no information no name (no abimbola ne) no organization name patient visit (no phone) 05-15-2019 Evaluation and no information no name (no phone) n o organization name - management of (no phone) 05-17-2019 inpatient 05-15-2019 Evaluation and no information JAQUAN Klein [facility] - management of (no phone) [facility] 05-17-2019 inpatient (no phone) 03-05-2018 Evaluation and Cerebrovascular LISA PEGUERO Work no organization name - management of accident due to (no phone) 03-06-2018 inpatient cerebral artery occlusion 03-05-2018 Evaluation and Cerebrovascular LISA PEGUERO Work no organization name - management of accident due to (no phone) 03-06-2018 inpatient cerebral artery occlusion 03-05-2018 Evaluation and no information LISA PEGUERO MD (n o [facility] - management of phone) [facility] 03-06-2018 inpatient (no phone) 03-31-2017 Evaluation and no information no name (no phone) n o organization name - management of (no phone) 04-01-2017 inpatient 03-31-2017 Evaluation and no information KEVIN SAMAYOA DO (no [facility] [address] - management of phone) [facility] 04-01-2017 inpatient (no phone) 08-29-2018 Patient encounter no information no name (no phone) no organization name (no phone) 08-27-2018 Patient encounter no information no name (no phone) no organization name (no phone) 08-26-2018 Patient encounter no information no name (no phone) no organization name (no phone) 08-22-2018 Patient encounter no information no name (no phone) no organization name (no phone) 08-19-2018 Patient encounter no information no name (no phone) no organization name (no phone) 08-19-2018 Patient encounter no information no name (no phone) no organization name (no phone) 08-13-2018 Patient encounter no information no name (no phone) no organization name (no phone) 08-12-2018 Patient encounter no information no name (no phone) no organization name (no phone) 08-08-2018 Patient encounter no information no name (no phone) no organization name (no phone) 08-06-2018 Patient encounter no information no name (no phone) no organization name (no phone) 08-02-2018 Patient encounter no information no name (no phone) no organization name (no phone) 07-25-2018 Patient encounter no information no name (no phone) no organization name (no phone) 07-18-2018 Patient encounter no information no name (no phone) no organization name (no phone) 07-17-2018 Patient encounter no information no name (no phone) no organization name (no phone) 07-15-2018 Patient encounter no information no name (no phone) no organization name (no phone) 07-15-2018 Patient encounter no information no name (no phone) no organization name (no phone) 07-15-2018 Patient encounter no information no name (no phone) no organization name (no phone) 07-10-2018 Patient encounter no information no name (no phone) no organization name - (no phone) 07-14-2018 07-08-2018 Patient encounter no information no name (no phone) no organization name (no phone) 07-03-2018 Patient encounter no information no name (no phone) no organization name (no phone) 07-01-2018 Patient encounter no information no name (no phone) no organization name (no phone) 06-27-2018 Patient encounter no information no name (no phone) no organization name (no phone) 06-25-2018 Patient encounter no information no name (no phone) no organization name (no phone) 06-10-2018 Patient encounter no information no name (no phone) no organization name (no phone) 03-15-2018 Patient encounter no information no name (no phone) no organization name (no phone) 12-11-2019 Patient encounter no information FLOYD LLAMAS [facility] [address] - procedure (no phone) [facility] 12-11-2019 (no phone) 09-16-2019 Patient encounter no information no name (no phone) no organization name - procedure (no phone) 09-16-2019 05-15-2019 Patient encounter no information no name (no phone) no organization name - procedure (no phone) 05-17-2019 05-15-2019 Patient encounter no information no name (no phone) no organization name - procedure (no phone) 05-17-2019 11-19-2018 Patient encounter no information no name (no phone) no organization name - procedure (no phone) 11-20-2018 11-14-2018 Patient encounter no information no name (no phone) no organization name - procedure (no phone) 11-14-2018 11-14-2018 Patient encounter no information ADDY GARZA MD (no [facility] [address] - procedure phone) [facility] 11-14-2018 (no phone) 11-12-2018 Patient encounter no information FLOYD MCKNIGHT [address] procedure (no phone) [facility] (no phone) 11-11-2018 Patient encounter no information no name (no phone) no organization name procedure (no phone) 11-08-2018 Patient encounter no information no name (no phone) no organization name procedure (no phone) 11-07-2018 Patient encounter no information no name (no phone) no organization name procedure (no phone) 10-30-2018 Patient encounter no information no name (no phone) no organization name procedure (no phone) 10-28-2018 Patient encounter no information no name (no phone) no organization name procedure (no phone) 10-24-2018 Patient encounter no information no name (no phone) no organization name procedure (no phone) 10-21-2018 Patient encounter no information no name (no phone) no organization name procedure (no phone) 10-17-2018 Patient encounter no information no name (no phone) no organization name procedure (no phone) 10-14-2018 Patient encounter no information no name (no phone) no organization name procedure (no phone) 10-14-2018 Patient encounter no information no name (no phone) no organization name procedure (no phone) 10-04-2018 Patient encounter no information no name (no phone) no organization name - procedure (no phone) 10-13-2018 10-04-2018 Patient encounter no information ADDY GARZA MD (no [facility] [address] - procedure phone) [facility] 10-12-2018 (no phone) 10-01-2018 Patient encounter no information no name (no phone) no organization name procedure (no phone) 09-27-2018 Patient encounter no information no name (no phone) no organization name procedure (no phone) 09-25-2018 Patient encounter no information no name (no phone) no organization name procedure (no phone) 09-19-2018 Patient encounter no information no name (no phone) no organization name procedure (no phone) 09-12-2018 Patient encounter no information no name (no phone) no organization name procedure (no phone) 09-09-2018 Patient encounter no information no name (no phone) no organization name procedure (no phone) 09-06-2018 Patient encounter no information no name (no phone) no organization name - procedure (no phone) 11-11-2018 09-06-2018 Patient encounter no information FLOYD LLAMAS [facility] [address] - procedure (no phone) [facility] 11-10-2018 (no phone) 09-04-2018 Patient encounter no information no name (no phone) no organization name procedure (no phone) 09-02-2018 Patient encounter no information no name (no phone) no organization name procedure (no phone) 08-30-2018 Patient encounter no information no name (no phone) no organization name procedure (no phone) 08-01-2018 Patient encounter no information no name (no phone) no organization name - procedure (no phone) 08-02-2018 07-18-2018 Patient encounter no information FLOYD LLAMAS [facility] [address] procedure (no phone) [facility] (no phone) 07-10-2018 Patient encounter no information ADDY GARZA MD (no [facility] [address] - procedure phone) [facility] 07-13-2018 (no phone) 06-10-2018 Patient encounter no information KIP MARTIN MD (no [facility] [address] procedure phone) [facility] (no phone) 05-14-2018 Patient encounter no information no name (no phone) no organization name - procedure (no phone) 05-15-2018 03-15-2018 Patient encounter no information ADDY GARZA MD (no [facility] [address] procedure phone) [facility] (no phone) 03-31-2017 Patient encounter no information no name (no phone) no organization name - procedure (no phone) 04-01-2017 11-11-2018 Registered Recurring no information ADDY GARZA Work no organization name (no phone) Medical Equipment Equipment Code (if Equipment Original Equipment Identifier P rocedure Code (if Dates provided) Text (if provided) (if provided) provided) no information as directed no information (no no information n o information named assigning authority) Payers Normalized Payer Value Unknown [id number]) Medicare no information Self-pay no information ([id number]) Private Health Insurance no information Evaluation note Note Type Note Facility Evaluation No Assessments Information Available A scension note Via [facility] ([id number]) Advance Directives Directive Response Recor ded Date/Time Advance Directives No 9:46pm Health Care Power of Arson Investigator No 03/05/18 9:46pm Organ Donor Yes 03/05/18 9:46pm Resuscitation Status Full Code 03/05/18 9:46pm Directive Response Recor ded Date/Time Advance Directives No 9:46pm Health Care Power of Arson Investigator No 03/05/18 9:46pm Organ Donor Yes 05/22/18 9:46pm Advance Directive Response Recorded Date/Time Advance Directives No Au 2018 8:41pm Health Care Power of Arson Investigator No May 15, 2019 8:41pm Organ Donor Yes May 152018 8:41pm Discharge Instructions No hospital discharge instruction information available.No hospital discharge instruction information available.No hospital discharge instruction information available.No hospital discharge instruction information available.No hospital discharge instruction information available.Current inpatient/outpatient. Discharge instructions are currently unavailable. Additional Source Comments This clinical document has been generated using [employer] software that has been certified by the Office of the National Coordinator for Health Information Technology (ONC 15.99.04.3023.Diam.[id number]) and the National Committee for Cable Inspector (NCQA, as an eMeasure certified technology). FOR RECORDS PERTAINING TO PATIENTS WHO ARE OR HAVE BEEN ENROLLED IN A CHEMICAL D EPENDENCY/SUBSTANCE ABUSE PROGRAM, SOME INFORMATION MAY BE OMITTED. This clinica l summary was aggregated from multiple sources. Caution should be exercised in using it in the provision of clinical care. This summary normalizes information from multiple sources, and as a consequence, information in this document may ma terially change the coding, format and clinical context of patient data. In piter tion, data may be omitted in some cases. CLINICAL DECISIONS SHOULD BE BASED ON T HE PRIMARY CLINICAL RECORDS. [employer] 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
--- OUTSIDE RECORDS SUMMARY | 2020-01-10 18:01 | XMS REPORT | Continuity of Care Document ---
Author Organization Unknown Address Unknown Phone Unavailable Allergies Active Description Code Type Severity Reaction Onset Reported/Identified Relationship to Patient Clinical Status Yes No Known Drug Allergies [id number] Drug Allergy Unknown N/A 03/31/2017 Medications There is no data. 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 9 POLYNEUROPATHY, UNSPECIFIED 09/13/1225 ADDY GARZA MD Ot M54. 5 LOW BACK PAIN 04/01/2017 DEANNA SAMAYOA DOI Ot E11.9 TYPE 2 DIABETES MELLITUS WITHOUT COMPLIC 04/01/2017 DANITA JENKINS KEVIN Ot F17.21 0 NICOTINE DEPENDENCE, CIGARETTES, UNCOMPL 04/01/2017 DEANNA SAMAYOA DOI Ot G45.9 TRANSIENT CEREBRAL ISCHEMIC ATTACK, UNSP 04/01/2017 DANITA JENKINS KEVIN Ot I10 ESSENTIAL (PRIMARY) HYPERTENSION 04/01/2017 DEANNA SAMAYOA DOI Ot R47.89 OTHER SPEECH DISTURBANCES 04/01/2017 DEANNA SAMAYOA DOI Ot R53.1 WEAKNESS 03/06/2018 LISA PEGUERO MD Ot E11.65 TYPE 2 DIABETES MELLITUS WITH HYPERGLYCE 03/06/2018 LISA PEGUERO MD Ot E83.42 HYPOMAGNESEMIA 03/06/2018 LISA PEGUERO MD Ot E86 .0 DEHYDRATION 03/06/2018 LISA PEGUERO MD Ot F17.210 NICOTINE DEPENDENCE, CIGARETTES, UNCOMPL 03/06/2018 LISA PEGUERO MD Ot G45 .9 TRANSIENT CEREBRAL ISCHEMIC ATTACK, UNSP 03/06/2018 LISA PEGUERO MD Ot I10 ESSENTIAL (PRIMARY) HYPERTENSION 03/06/2018 LISA PEGUERO MD Ot M54.42 LUMBAGO WITH SCIATICA, LEFT SIDE 03/06/2018 LISA PEGUERO MD Ot N28 .9 DISORDER OF KIDNEY AND URETER, UNSPECIFI 03/06/2018 LISA PEGUERO MD Ot R29.810 FACIAL WEAKNESS 03/06/2018 LISA PEGUERO MD, Ot R29.898 OTH SYMPTOMS AND SIGNS INVOLVING THE MUS 03/06/2018 LISA PEGUERO MD, Ot T67.5XXA HEAT EXHAUSTION, UNSPECIFIED, INITIAL EN 03/06/2018 LISA PEGUERO MD, Ot Z79.82 RETIREMENT (CURRENT) USE OF ASPIRIN 03/06/2018 LISA PEGUERO MD, Ot Z79.84 FISHER SPEAR (CURRENT) USE OF ORAL HYPOGLYC 03/06/2018 LISA PEGUERO MD, Ot Z79.899 OTHER FISHER SPEAR (CURRENT) DRUG THERAPY 03/06/2018 LISA PEGUERO MD, Ot Z91.14 PATIENT'S OTHER NONCOMPLIANCE WITH MEDIC 03/19/2018 ADDY GARZA MD Ot G45. 9 TRANSIENT CEREBRAL ISCHEMIC ATTACK, UNSP 04/18/2018 ADDY GARZA MD Ot G45. 9 TRANSIENT CEREBRAL ISCHEMIC ATTACK, UNSP 06/07/2018 ADDY GARZA MD Ot G45. 9 TRANSIENT CEREBRAL ISCHEMIC ATTACK, UNSP 06/25/2018 ADDY GARZA MD Ot G45. 9 TRANSIENT CEREBRAL ISCHEMIC ATTACK, UNSP 06/25/2018 KIP MARTIN MD Ot M47.816 SPONDYLOSIS W/O MYELOPATHY OR RADICULOPA 06/25/2018 KIP MARTIN MD Ot M48.061 SPINAL STENOSIS, LUMBAR REGION WITHOUT N 06/25/2018 KIP MARTIN MD Ot Z98.890 OTHER SPECIFIED POSTPROCEDURAL STATES 06/25/2018 ADDY GARZA MD Ot G45. 9 TRANSIENT CEREBRAL ISCHEMIC ATTACK, UNSP 06/25/2018 KIP MARTIN MD Ot M47.816 SPONDYLOSIS W/O MYELOPATHY OR RADICULOPA 06/25/2018 KIP MARTIN MD Ot M48.061 SPINAL STENOSIS, LUMBAR REGION WITHOUT N 06/25/2018 KIP MARTIN MD Ot Z98.890 OTHER SPECIFIED POSTPROCEDURAL STATES 07/04/2018 ADDY GARZA MD Ot G45. 9 TRANSIENT CEREBRAL ISCHEMIC ATTACK, UNSP 07/05/2018 ADDY GARZA MD Ot G45. 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 9 POLYNEUROPATHY, UNSPECIFIED 07/08/2018 ADDY GARZA MD Ot M54. 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 9 POLYNEUROPATHY, UNSPECIFIED 07/09/2018 ADDY GARZA MD Ot M54. 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 9 POLYNEUROPATHY, UNSPECIFIED 07/14/2018 ADDY GARZA MD Ot M54. 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 9 POLYNEUROPATHY, UNSPECIFIED 07/15/2018 ADDY GARZA MD Ot M54. 5 LOW BACK PAIN 07/17/2018 ADDY GARZA MD Ot G45. 8 OTH TRANSIENT CEREBRAL ISCHEMIC ATTACKS 07/17/2018 ADDY GARZA MD Ot G62. 9 POLYNEUROPATHY, UNSPECIFIED 07/17/2018 ADDY GARZA MD Ot M54. 5 LOW BACK PAIN 07/19/2018 ADDY GARZA MD Ot G45. 8 OTH TRANSIENT CEREBRAL ISCHEMIC ATTACKS 07/19/2018 ADDY GARZA MD Ot G62. 9 POLYNEUROPATHY, UNSPECIFIED 07/19/2018 ADDY GARZA MD Ot M54. 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 9 POLYNEUROPATHY, UNSPECIFIED 08/08/2018 ADDY GARZA MD Ot M54. 5 LOW BACK PAIN 08/09/2018 ADDY GARZA MD Ot G45. 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 9 POLYNEUROPATHY, UNSPECIFIED 08/31/2018 ADDY GARZA MD Ot M54. 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 9 POLYNEUROPATHY, UNSPECIFIED 09/09/2018 ADDY GARZA MD Ot M54. 5 LOW BACK PAIN 09/23/2018 MARIO CHOI KIP K Ot M47.816 SPONDYLOSIS W/O MYELOPATHY OR RADICULOPA 09/23/2018 MARIO CHOI, KIP K Ot M48.061 SPINAL STENOSIS, LUMBAR REGION WITHOUT N 09/23/2018 AMRIO CHOI, KIP K Ot Z98.890 OTHER SPECIFIED POSTPROCEDURAL STATES 09/26/2018 MARIO CHOI KIP K Ot M47.816 SPONDYLOSIS W/O MYELOPATHY OR RADICULOPA 09/26/2018 MARIO CHOI, KIP K Ot M48.061 SPINAL STENOSIS, LUMBAR REGION WITHOUT N 09/26/2018 MARIO CHOI, KIP K Ot Z98.890 OTHER SPECIFIED POSTPROCEDURAL STATES 09/30/2018 MARIO CHOI KIP K Ot M47.816 SPONDYLOSIS W/O MYELOPATHY OR RADICULOPA 09/30/2018 MARIO CHOI, KIP K Ot M48.061 SPINAL STENOSIS, LUMBAR REGION WITHOUT N 09/30/2018 MARIO CHOI, KIP K Ot Z98.890 OTHER SPECIFIED POSTPROCEDURAL STATES 10/04/2018 ADDY GARZA MD C Ot G45. 8 OTH TRANSIENT CEREBRAL ISCHEMIC ATTACKS 10/04/2018 ADDY GARZA MD C Ot G62. 9 POLYNEUROPATHY, UNSPECIFIED 10/04/2018 ADDY GARZA MD Ot M54. 5 LOW BACK PAIN 10/13/2018 ADDY GARZA MD C Ot G45. 8 OTH TRANSIENT CEREBRAL ISCHEMIC ATTACKS 10/13/2018 ADDY GARZA MD C Ot G62. 9 POLYNEUROPATHY, UNSPECIFIED 10/13/2018 ADDY GARZA MD C Ot M54. 5 LOW BACK PAIN 10/14/2018 ADDY GARZA MD C Ot G45. 8 OTH TRANSIENT CEREBRAL ISCHEMIC ATTACKS 10/14/2018 ADDY GARZA MD C Ot G62. 9 POLYNEUROPATHY, UNSPECIFIED 10/14/2018 ADDY GARZA MD Ot M54. 5 LOW BACK PAIN 10/16/2018 ADDY GARZA MD C Ot G45. 8 OTH TRANSIENT CEREBRAL ISCHEMIC ATTACKS 10/16/2018 ADDY GARZA MD C Ot G62. 9 POLYNEUROPATHY, UNSPECIFIED 10/16/2018 ADDY GARZA MD C Ot M54. 5 LOW BACK PAIN 10/18/2018 ADDY GARZA MD C Ot G45. 8 OTH TRANSIENT CEREBRAL ISCHEMIC ATTACKS 10/18/2018 KAYLA CHOI, ADDY Velázquez Ot G62. 9 POLYNEUROPATHY, UNSPECIFIED 10/18/2018 KAYLA CHOI, ADDY Velázquez Ot M54. 5 LOW BACK PAIN 11/05/2018 KAYLA CHOI, ADDY Velázquez Ot G45. 8 OTH TRANSIENT CEREBRAL ISCHEMIC ATTACKS 11/05/2018 ADDY GARZA MD Ot G62. 9 POLYNEUROPATHY, UNSPECIFIED 11/05/2018 KAYLA CHOI, ADDY Velázquez Ot M54. 5 LOW BACK PAIN 11/05/2018 KAYLA CHOI, ADDY Velázquez Ot G45. 8 OTH TRANSIENT CEREBRAL ISCHEMIC ATTACKS 11/05/2018 KAYLA CHOI, ADDY Velázquez Ot G62. 9 POLYNEUROPATHY, UNSPECIFIED 11/05/2018 ADDY GARZA MD Ot M54. 5 LOW BACK PAIN 11/07/2018 ADDY GARZA MD Ot G45. 8 OTH TRANSIENT CEREBRAL ISCHEMIC ATTACKS 11/07/2018 ADDY GARZA MD Ot G62. 9 POLYNEUROPATHY, UNSPECIFIED 11/07/2018 ADDY GARZA MD Ot M54. 5 LOW BACK PAIN 11/11/2018 TRI CHOI, Rabia STEWART Ot E11 .9 TYPE 2 DIABETES MELLITUS WITHOUT COMPLIC 11/11/2018 TRI CHOI, Rabia STEWART Ot F17.200 NICOTINE DEPENDENCE, UNSPECIFIED, UNCOMP 11/11/2018 TRI CHOI, Rabia STEWART Ot G45 .9 TRANSIENT CEREBRAL ISCHEMIC ATTACK, UNSP 11/11/2018 TRI CHOI, Rabia STEWART Ot I10 ESSENTIAL (PRIMARY) HYPERTENSION 11/11/2018 TRI CHOI, Rabia STEWART Ot I63 .9 CEREBRAL INFARCTION, UNSPECIFIED 11/11/2018 TRI CHOI, Rabia STEWART Ot I73 .9 PERIPHERAL VASCULAR DISEASE, UNSPECIFIED 11/14/2018 KAYLA CHOI, ADDY Velázquez Ot G45. 8 OTH TRANSIENT CEREBRAL ISCHEMIC ATTACKS 11/14/2018 ADDY GARZA MD Ot G62. 9 POLYNEUROPATHY, UNSPECIFIED 11/14/2018 KAYLA HCOI, ADDY Velázquez Ot M54. 5 LOW BACK PAIN 11/17/2018 TRI CHOI, Rabia STEWART Ot E11 .9 TYPE 2 DIABETES MELLITUS WITHOUT COMPLIC 11/17/2018 TRI CHOI, Rabia STEWART Ot F17.200 NICOTINE DEPENDENCE, UNSPECIFIED, UNCOMP 11/17/2018 TRI CHOI, Rabia STEWART Ot G45 .9 TRANSIENT CEREBRAL ISCHEMIC ATTACK, UNSP 11/17/2018 TRI CHOI, Rabia STEWART Ot I10 ESSENTIAL (PRIMARY) HYPERTENSION 11/17/2018 TRI CHOI, Rabia STEWART Ot I63 .9 CEREBRAL INFARCTION, UNSPECIFIED 11/17/2018 TRI CHOI, Rabia STEWART Ot I73 .9 PERIPHERAL VASCULAR DISEASE, UNSPECIFIED 05/15/2019 KAYLA CHOI, ADDY Velázquez Ot G45. 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 2 DIABETES W DIABETIC PERIPHERAL AN 05/15/2019 TRI CHOI, Rabia STEWART Ot F17.200 NICOTINE DEPENDENCE, UNSPECIFIED, UNCOMP 05/15/2019 TRI CHOI, Rabia STEWART Ot I10 ESSENTIAL (PRIMARY) HYPERTENSION 05/15/2019 TRI CHOI, Rabia STEWART Ot I63 .9 CEREBRAL INFARCTION, UNSPECIFIED 05/15/2019 TRI CHOI, M TERRY Ot E11 .9 TYPE 2 DIABETES MELLITUS WITHOUT COMPLIC 05/15/2019 TRI CHOI, Rabia STEWART Ot F17.200 NICOTINE DEPENDENCE, UNSPECIFIED, UNCOMP 05/15/2019 TRI CHOI, Rabia STEWART Ot G45 .9 TRANSIENT CEREBRAL ISCHEMIC ATTACK, UNSP 05/15/2019 TRI CHOI, Rabia STEWART Ot I10 ESSENTIAL (PRIMARY) HYPERTENSION 05/15/2019 TRI CHOI, Rabia STEWART Ot I63 .9 CEREBRAL INFARCTION, UNSPECIFIED 05/15/2019 TRI CHOI, Rabia STEWART Ot I73 .9 PERIPHERAL VASCULAR DISEASE, UNSPECIFIED 05/15/2019 KAYLA CHOI, ADDY C Ot G45. 9 TRANSIENT CEREBRAL ISCHEMIC ATTACK, UNSP 05/15/2019 MARIO CHOI, KIP K Ot M47.816 SPONDYLOSIS W/O MYELOPATHY OR RADICULOPA 05/15/2019 MARIO CHOI, KIP Goel Ot M48.061 SPINAL STENOSIS, LUMBAR REGION WITHOUT N 05/15/2019 MARIO CHOI, KIP Goel Ot Z98.890 OTHER SPECIFIED POSTPROCEDURAL STATES 05/15/2019 TRI CHOI, Rabia STEWART Ot E11.51 TYPE 2 DIABETES W DIABETIC PERIPHERAL AN 05/15/2019 TRI CHOI, Rabia STEWART Ot F17.200 NICOTINE DEPENDENCE, UNSPECIFIED, UNCOMP 05/15/2019 TRI CHOI, M TERRY Ot I10 ESSENTIAL (PRIMARY) HYPERTENSION 05/15/2019 TRI CHOI, M TERRY Ot I63 .9 CEREBRAL INFARCTION, UNSPECIFIED 05/15/2019 TRI CHOI, Rabia STEWART Ot E11 .9 TYPE 2 DIABETES MELLITUS WITHOUT COMPLIC 05/15/2019 TRI CHOI, Rabia STEWART Ot F17.200 NICOTINE DEPENDENCE, UNSPECIFIED, UNCOMP 05/15/2019 TRI CHOI, Rabia STEWART Ot G45 .9 TRANSIENT CEREBRAL ISCHEMIC ATTACK, UNSP 05/15/2019 TRI CHOI, Rabia STEWART Ot I10 ESSENTIAL (PRIMARY) HYPERTENSION 05/15/2019 TRI CHOI, Rabia STEWART Ot I63 .9 CEREBRAL INFARCTION, UNSPECIFIED 05/15/2019 TRI CHOI, Rabia STEWART Ot I73 .9 PERIPHERAL VASCULAR DISEASE, UNSPECIFIED 05/17/2019 JAQUAN HERNADEZ DO Ot E11.42 TYPE 2 DIABETES MELLITUS WITH DIABETIC P 05/17/2019 JAQUAN HERNADEZ DO Ot E11.65 TYPE 2 DIABETES MELLITUS WITH HYPERGLYCE 05/17/2019 JAQUAN HERNADEZ DO Ot F17.210 NICOTINE DEPENDENCE, CIGARETTES, UNCOMPL 05/17/2019 JAQUAN HERNADEZ DO Ot G45.9 TRANSIENT CEREBRAL ISCHEMIC ATTACK, UNSP 05/17/2019 JAQUAN HERNADEZ DO Ot I10 ESSENTIAL (PRIMARY) HYPERTENSION 05/17/2019 JAQUAN HERNADEZ DO Ot M54.42 LUMBAGO WITH SCIATICA, LEFT SIDE 05/17/2019 JAQUAN HERNADEZ DO Ot N17.9 ACUTE KIDNEY FAILURE, UNSPECIFIED 05/17/2019 JAQUAN HERNADEZ DO Ot R29.810 FACIAL WEAKNESS 05/17/2019 MARICARMEN JENKINS, JAQUAN Russo Ot R47.81 SLURRED SPEECH 05/17/2019 MARICARMEN JENKINS, JAQUAN Russo Ot Z79.4 RETIREMENT (CURRENT) USE OF INSULIN 05/17/2019 MARICARMEN JENKINS, JAQUAN Russo Ot Z87.01 PERSONAL HISTORY OF PNEUMONIA (RECURRENT 05/17/2019 MARICARMEN JENKINS, JAQUAN Russo Ot Z91.19 PATIENT'S NONCOMPLIANCE W OT MEDICAL TR 06/30/2019 KAYLA CHOI, ADDY Velázquez Ot G45. 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 2 DIABETES W DIABETIC PERIPHERAL AN 06/30/2019 TRI CHOI, Rabia STEWART Ot F17.200 NICOTINE DEPENDENCE, UNSPECIFIED, UNCOMP 06/30/2019 TRI CHOI, Rabia STEWART Ot I10 ESSENTIAL (PRIMARY) HYPERTENSION 06/30/2019 TRI CHOI, Rabia STEWART Ot I63 .9 CEREBRAL INFARCTION, UNSPECIFIED 06/30/2019 TRI CHOI, M TERRY Ot E11 .9 TYPE 2 DIABETES MELLITUS WITHOUT COMPLIC 06/30/2019 TRI CHOI, Rabia STEWART Ot F17.200 NICOTINE DEPENDENCE, UNSPECIFIED, UNCOMP 06/30/2019 Rabia BARTLETT MD Ot G45 .9 TRANSIENT CEREBRAL ISCHEMIC ATTACK, UNSP 06/30/2019 TRI CHOI M TERRY Ot I10 ESSENTIAL (PRIMARY) HYPERTENSION 06/30/2019 Rabia BARTLETT MD Ot I63 .9 CEREBRAL INFARCTION, UNSPECIFIED 06/30/2019 Rabia BARTLETT MD Ot I73 .9 PERIPHERAL VASCULAR DISEASE, UNSPECIFIED 12/09/2019 KAYLA CHOI, ADDY Velázquez Ot G45. 9 TRANSIENT CEREBRAL ISCHEMIC ATTACK, UNSP 12/09/2019 MARIO CHOI, KIP Goel Ot M47.816 SPONDYLOSIS W/O MYELOPATHY OR RADICULOPA 12/09/2019 MARIO CHOI, KIP Goel Ot M48.061 SPINAL STENOSIS, LUMBAR REGION WITHOUT N 12/09/2019 MARIO CHOI, KIP Goel Ot Z98.890 OTHER SPECIFIED POSTPROCEDURAL STATES 12/09/2019 TRI CHOI, Rabia STEWART Ot E11.51 TYPE 2 DIABETES W DIABETIC PERIPHERAL AN 12/09/2019 TRI CHOI, M TERRY Ot F17.200 NICOTINE DEPENDENCE, UNSPECIFIED, UNCOMP 12/09/2019 TRI CHOI, M TERRY Ot I10 ESSENTIAL (PRIMARY) HYPERTENSION 12/09/2019 TRI CHOI, M TERRY Ot I63 .9 CEREBRAL INFARCTION, UNSPECIFIED 12/09/2019 TRI CHOI, Rabia STEWART Ot E11 .9 TYPE 2 DIABETES MELLITUS WITHOUT COMPLIC 12/09/2019 Rabia BARTLETT MD Ot F17.200 NICOTINE DEPENDENCE, UNSPECIFIED, UNCOMP 12/09/2019 TRI CHOI, M TERRY Ot G45 .9 TRANSIENT CEREBRAL ISCHEMIC ATTACK, UNSP 12/09/2019 TRI CHOI M TERRY Ot I10 ESSENTIAL (PRIMARY) HYPERTENSION 12/09/2019 TRI CHOI, M TERRY Ot I63 .9 CEREBRAL INFARCTION, UNSPECIFIED 12/09/2019 Rabia BARTLETT MD Ot I73 .9 PERIPHERAL VASCULAR DISEASE, UNSPECIFIED 12/11/2019 TRI CHOI M TERRY Ot E11.51 TYPE 2 DIABETES W DIABETIC PERIPHERAL AN 12/11/2019 TRI CHOI, M TERRY Ot E11.621 TYPE 2 DIABETES MELLITUS WITH FOOT ULCER 12/11/2019 TRI CHOI, M TERRY Ot F17.210 NICOTINE DEPENDENCE, CIGARETTES, UNCOMPL 12/11/2019 TRI CHOI, M TERRY Ot G45 .9 TRANSIENT CEREBRAL ISCHEMIC ATTACK, UNSP 12/11/2019 TRI CHOI M TERRY Ot I10 ESSENTIAL (PRIMARY) HYPERTENSION 12/11/2019 TRI CHOI M TERRY Ot I63 .9 CEREBRAL INFARCTION, UNSPECIFIED 12/11/2019 Rabia BARTLETT MD Ot Z79.82 RETIREMENT (CURRENT) USE OF ASPIRIN 12/11/2019 Rabia BARTLETT MD Ot Z79.84 RETIREMENT (CURRENT) USE OF ORAL HYPOGLYC 12/11/2019 Rabia BARTLETT MD Ot Z79.899 OTHER FISHER SPEAR (CURRENT) DRUG THERAPY 12/16/2019 Rabia BARTLETT MD Ot E11.51 TYPE 2 DIABETES W DIABETIC PERIPHERAL AN 12/16/2019 Rabia BARTLETT MD Ot E11.621 TYPE 2 DIABETES MELLITUS WITH FOOT ULCER 12/16/2019 Rabia BARTLETT MD Ot F17.210 NICOTINE DEPENDENCE, CIGARETTES, UNCOMPL 12/16/2019 Rabia BARTLETT MD Ot G45 .9 TRANSIENT CEREBRAL ISCHEMIC ATTACK, UNSP 12/16/2019 Rabia BARTLETT MD Ot I10 ESSENTIAL (PRIMARY) HYPERTENSION 12/16/2019 Rabia BARTLETT MD Ot I63 .9 CEREBRAL INFARCTION, UNSPECIFIED 12/16/2019 Rabia BARTLETT MD Ot Z79.82 FISHER SPEAR (CURRENT) USE OF ASPIRIN 12/16/2019 Rabai BARTLETT MD Ot Z79.84 RETIREMENT (CURRENT) USE OF ORAL HYPOGLYC 12/16/2019 Rabia BARTLETT MD Ot Z79.899 OTHER FISHER SPEAR (CURRENT) DRUG THERAPY 01/02/2020 Rabia BARTLETT MD Ot E11.51 TYPE 2 DIABETES W DIABETIC PERIPHERAL AN 01/02/2020 Rabia BARTLETT MD Ot E11.621 TYPE 2 DIABETES MELLITUS WITH FOOT ULCER 01/02/2020 Rabia BARTLETT MD Ot F17.210 NICOTINE DEPENDENCE, CIGARETTES, UNCOMPL 01/02/2020 Rabia BARTLETT MD, Ot G45 .9 TRANSIENT CEREBRAL ISCHEMIC ATTACK, UNSP 01/02/2020 Rabia BARTLETT MD Ot I10 ESSENTIAL (PRIMARY) HYPERTENSION 01/02/2020 Rabia BARTLETT MD Ot I63 .9 CEREBRAL INFARCTION, UNSPECIFIED 01/02/2020 Rabia BARTLETT MD Ot Z79.82 RETIREMENT (CURRENT) USE OF ASPIRIN 01/02/2020 Rabia BARTLETT MD Ot Z79.84 FISHER SPEAR (CURRENT) USE OF ORAL HYPOGLYC 01/02/2020 TRI CHOI, M TERRY Z79.899 OTHER FISHER SPEAR (CURRENT) DRUG THERAPY Procedures There is no data. Results Test Result Range Complete blood count (CBC) with automate d white blood cell (WBC) differential - 03/31/17 07:30 Blood leukocytes automated count (number/volume) 8.8 10*3/uL 4.3-11.0 Blood erythrocytes automated count (number/volume) 4.97 10*6/uL 4.35-5.85 Venous blood hemoglobin measurement (mass/volume) 16.2 g/dL 13.3-17.7 Blood hematocrit (volume fraction) 46 % 40-54 Automated erythrocyte mean corpuscular volume 93 [ foz_us] 80-99 Automated erythrocyte mean corpuscular h emoglobin (mass per erythrocyte) 33 pg 25-34 Automated erythrocyte mean corpuscular h emoglobin concentration measurement (mass/volume) 35 g/dL 32-36 Automated erythrocyte distribution width ratio 12. 3 % 10.0- 14.5 Automated blood platelet count (count/volume) 208 10*3/uL 130-400 Automated blood platelet mean volume measurement 10.3 [foz_us] 7.4-10.4 Automated blood neutrophils/100 leukocytes 62 % 42-75 Automated blood lymphocytes/100 leukocytes 27 % 12-44 Blood monocytes/100 leukocytes 9 % 0-12 Automated blood eosinophils/100 leukocytes 2 % 0-10 Automated blood basophils/100 leukocytes 1 % 0-10 Blood neutrophils automated count (number/volume) 5.5 10*3 1.8-7.8 Blood lymphocytes automated count (number/volume) 2.3 10*3 1.0-4.0 Blood monocytes automated count (number/volume) 0. 8 10*3 0.0-1.0 Automated eosinophil count 0.2 10*3/uL 0 .0-0.3 Automated blood basophil count (count/volume) 0.1 10*3/uL 0.0-0.1 Comprehensive metabolic panel - 03/31/17 07:30 Serum or plasma sodium measurement (moles/volume) 137 mmol/L 135-145 Serum or plasma potassium measurement (moles/volume) 4.1 mmol/L 3.6-5.0 Serum or plasma chloride measurement (moles/volume) 104 mmol/L 98-107 Carbon dioxide 20 mmol/L 21-32 Serum or plasma anion gap determination (moles/volume) 13 mmol/L 5-14 Serum or plasma urea nitrogen measurement (mass/volume ) 21 mg/dL 7-18 Serum or plasma creatinine measurement (mass/volume) 1.01 mg/dL 0.60-1.30 Serum or plasma urea nitrogen/creatinine mass ratio 21 0-20 Serum or plasma creatinine measurement w ith calculation of estimated glomerular filtration rate > NRG Serum or plasma glucose measurement (mass/volume) 320 mg/dL 70-105 Serum or plasma calcium measurement (mass/volume) 9.2 mg/dL 8.5-10.1 Serum or plasma total bilirubin measurement (mass/volu me) 0.4 mg/dL 0.1-1.0 Serum or plasma alkaline phosphatase roge surement (enzymatic activity/volume) 94 U/L 40-136 Serum or plasma aspartate aminotransfera se measurement (enzymatic activity/volume) 14 U/L 5-34 Serum or plasma alanine aminotransferase measurement (enzymatic activity/volume) 16 U/L 0-55 Serum or plasma protein measurement (mass/volume) 7.1 g/dL 6.4-8.2 Serum or plasma albumin measurement (mass/volume) 4.3 g/dL 3.2-4.5 Serum or plasma troponin i.cardiac measu rement (mass/volume) - 03/31/17 07:30 Serum or plasma troponin i.cardiac measurement (mass/v olume) < ng/mL <0.30 PT panel in platelet poor plasma by coag ulation assay - 03/31/17 07:30 Prothrombin time (PT) in platelet poor plasma by coagu lation assay 11.0 s 12.2-14.7 INR in platelet poor plasma or blood by coagulation as say 0.8 0.8-1.4 Activated partial thromboplastin time (a PTT) in platelet poor plasma bycoagulation assay - 03/31/17 07:30 Activated partial thromboplastin time (a PTT) in platelet poor plasma bycoagulation assay 29 s 24-35 Fibrin D-dimer FEU measurement in platel et poor plasma (mass/volume) - 03/31/17 07:30 Fibrin D-dimer FEU measurement in platelet poor plasma (mass/volume) 0.36 ug/mL 0.00-0.49 Hemoglobin A1c - 03/31/17 07:30 Hemoglobin A1c 10.1 % 4.5-6.2 Complete urinalysis with reflex to cultu re - 03/31/17 10:30 Urine color determination YELLOW NRG Urine clarity determination CLEAR NR G Urine pH measurement by test strip 5 5-9 Specific gravity of urine by test strip 1.005 1.016-1.022 Urine protein assay by test strip, semi-quantitative 2+ NEGATIVE Urine glucose detection by automated test strip 4+ NEGATIVE Erythrocytes detection in urine sediment by light micr oscopy NEGATIVE NEGATIVE Urine ketones detection by automated test strip NE GATIVE NEGATIVE Urine nitrite detection by test strip NEGATIVE NEGATIVE Urine total bilirubin detection by test strip NEGA TIVE NEGATIVE Urine urobilinogen measurement by automated test strip (mass/volume) NORMAL NORMAL Urine leukocyte esterase detection by dipstick NEG ATIVE NEGATIVE Automated urine sediment erythrocyte cou nt by microscopy (number/high power field) NONE NRG Automated urine sediment leukocyte count by microscopy (number/high power field) NONE NRG Bacteria detection in urine sediment by light microsco py NEGATIVE NRG Crystals detection in urine sediment by light microsco py NONE NRG Casts detection in urine sediment by light microscopy NONE NRG Mucus detection in urine sediment by light microscopy NEGATIVE NRG Complete urinalysis with reflex to culture NO NRG Capillary blood glucose measurement by g lucometer (mass/volume) - 03/31/17 10:50 Capillary blood glucose measurement by glucometer (mas s/volume) 223 mg/dL 70-110 Complete blood count (CBC) with automate d white blood cell (WBC) differential - 04/01/17 05:15 Blood leukocytes automated count (number/volume) 8.0 10*3/uL 4.3-11.0 Blood erythrocytes automated count (number/volume) 4.67 10*6/uL 4.35-5.85 Venous blood hemoglobin measurement (mass/volume) 15.2 g/dL 13.3-17.7 Blood hematocrit (volume fraction) 43 % 40-54 Automated erythrocyte mean corpuscular volume 93 [ foz_us] 80-99 Automated erythrocyte mean corpuscular h emoglobin (mass per erythrocyte) 33 pg 25-34 Automated erythrocyte mean corpuscular h emoglobin concentration measurement (mass/volume) 35 g/dL 32-36 Automated erythrocyte distribution width ratio 11. 9 % 10.0- 14.5 Automated blood platelet count (count/volume) 192 10*3/uL 130-400 Automated blood platelet mean volume measurement 10.2 [foz_us] 7.4-10.4 Automated blood neutrophils/100 leukocytes 64 % 42-75 Automated blood lymphocytes/100 leukocytes 26 % 12-44 Blood monocytes/100 leukocytes 7 % 0-12 Automated blood eosinophils/100 leukocytes 3 % 0-10 Automated blood basophils/100 leukocytes 0 % 0-10 Blood neutrophils automated count (number/volume) 5.1 10*3 1.8-7.8 Blood lymphocytes automated count (number/volume) 2.1 10*3 1.0-4.0 Blood monocytes automated count (number/volume) 0. 6 10*3 0.0-1.0 Automated eosinophil count 0.2 10*3/uL 0 .0-0.3 Automated blood basophil count (count/volume) 0.0 10*3/uL 0.0-0.1 Comprehensive metabolic panel - 04/01/17 05:15 Serum or plasma sodium measurement (moles/volume) 134 mmol/L 135-145 Serum or plasma potassium measurement (moles/volume) 4.4 mmol/L 3.6-5.0 Serum or plasma chloride measurement (moles/volume) 105 mmol/L 98-107 Carbon dioxide 13 mmol/L 21-32 Serum or plasma anion gap determination (moles/volume) 16 mmol/L 5-14 Serum or plasma urea nitrogen measurement (mass/volume ) 26 mg/dL 7-18 Serum or plasma creatinine measurement (mass/volume) 0.92 mg/dL 0.60-1.30 Serum or plasma urea nitrogen/creatinine mass ratio 28 0-20 Serum or plasma creatinine measurement w ith calculation of estimated glomerular filtration rate > NRG Serum or plasma glucose measurement (mass/volume) 309 mg/dL 70-105 Serum or plasma calcium measurement (mass/volume) 8.4 mg/dL 8.5-10.1 Serum or plasma total bilirubin measurement (mass/volu me) 0.2 mg/dL 0.1-1.0 Serum or plasma alkaline phosphatase roge surement (enzymatic activity/volume) 86 U/L 40-136 Serum or plasma aspartate aminotransfera se measurement (enzymatic activity/volume) 17 U/L 5-34 Serum or plasma alanine aminotransferase measurement (enzymatic activity/volume) 14 U/L 0-55 Serum or plasma protein measurement (mass/volume) 6.7 g/dL 6.4-8.2 Serum or plasma albumin measurement (mass/volume) 3.5 g/dL 3.2-4.5 Lipid 1996 panel - 04/01/17 05:15 Serum or plasma triglyceride measurement (mass/volume) 1470 mg/dL <150 Serum or plasma cholesterol measurement (mass/volume) 279 mg/dL < 200 Serum or plasma cholesterol in HDL measurement (mass/v olume) 27 mg/dL 40-60 Cholesterol in LDL [mass/volume] in serum or plasma by direct assay 82 mg/dL 1-129 Serum or plasma cholesterol in VLDL measurement (mass/ volume) 294 mg/dL 5-40 Complete blood count (CBC) with automate d white blood cell (WBC) differential - 03/05/18 18:40 Blood leukocytes automated count (number/volume) 10.9 10*3/uL 4.3-11.0 Blood erythrocytes automated count (number/volume) 4.98 10*6/uL 4.35-5.85 Venous blood hemoglobin measurement (mass/volume) 15.4 g/dL 13.3-17.7 Blood hematocrit (volume fraction) 44 % 40-54 Automated erythrocyte mean corpuscular volume 88 [ foz_us] 80-99 Automated erythrocyte mean corpuscular h emoglobin (mass per erythrocyte) 31 pg 25-34 Automated erythrocyte mean corpuscular h emoglobin concentration measurement (mass/volume) 35 g/dL 32-36 Automated erythrocyte distribution width ratio 12. 7 % 10.0- 14.5 Automated blood platelet count (count/volume) 220 10*3/uL 130-400 Automated blood platelet mean volume measurement 9.9 [foz_us] 7.4-10.4 Automated blood neutrophils/100 leukocytes 72 % 42-75 Automated blood lymphocytes/100 leukocytes 18 % 12-44 Blood monocytes/100 leukocytes 9 % 0-12 Automated blood eosinophils/100 leukocytes 0 % 0-10 Automated blood basophils/100 leukocytes 0 % 0-10 Blood neutrophils automated count (number/volume) 7.8 10*3 1.8-7.8 Blood lymphocytes automated count (number/volume) 1.9 10*3 1.0-4.0 Blood monocytes automated count (number/volume) 1. 0 10*3 0.0-1.0 Automated eosinophil count 0.0 10*3/uL 0 .0-0.3 Automated blood basophil count (count/volume) 0.0 10*3/uL 0.0-0.1 PT panel in platelet poor plasma by coag ulation assay - 03/05/18 18:40 Prothrombin time (PT) in platelet poor plasma by coagu lation assay 13.4 s 12.2-14.7 INR in platelet poor plasma or blood by coagulation as say 1.0 0.8-1.4 Activated partial thromboplastin time (a PTT) in platelet poor plasma bycoagulation assay - 03/05/18 18:40 Activated partial thromboplastin time (a PTT) in platelet poor plasma bycoagulation assay 28 s 24-35 Comprehensive metabolic panel - 03/05/18 18:40 Serum or plasma sodium measurement (moles/volume) 140 mmol/L 135-145 Serum or plasma potassium measurement (moles/volume) 3.9 mmol/L 3.6-5.0 Serum or plasma chloride measurement (moles/volume) 106 mmol/L 98-107 Carbon dioxide 22 mmol/L 21-32 Serum or plasma anion gap determination (moles/volume) 12 mmol/L 5-14 Serum or plasma urea nitrogen measurement (mass/volume ) 21 mg/dL 7-18 Serum or plasma creatinine measurement (mass/volume) 1.34 mg/dL 0.60-1.30 Serum or plasma urea nitrogen/creatinine mass ratio 16 NRG Serum or plasma creatinine measurement w ith calculation of estimated glomerular filtration rate 57 NRG Serum or plasma glucose measurement (mass/volume) 129 mg/dL 70-105 Serum or plasma calcium measurement (mass/volume) 9.2 mg/dL 8.5-10.1 Serum or plasma total bilirubin measurement (mass/volu me) 0.3 mg/dL 0.1-1.0 Serum or plasma alkaline phosphatase roge surement (enzymatic activity/volume) 71 U/L 40-136 Serum or plasma aspartate aminotransfera se measurement (enzymatic activity/volume) 16 U/L 5-34 Serum or plasma alanine aminotransferase measurement (enzymatic activity/volume) 16 U/L 0-55 Serum or plasma protein measurement (mass/volume) 6.3 g/dL 6.4-8.2 Serum or plasma albumin measurement (mass/volume) 4.1 g/dL 3.2-4.5 Magnesium - 03/05/18 18:40 Magnesium 1.7 mg/dL 1.8-2.4 Serum or plasma troponin i.cardiac measu rement (mass/volume) - 03/05/18 18:40 Serum or plasma troponin i.cardiac measurement (mass/v olume) < ng/mL <0.30 Myoglobin, serum - 03/05/18 18:40 Myoglobin, serum 149.2 ng/mL 10.0-92.0 Capillary blood glucose measurement by g lucometer (mass/volume) - 03/05/18 22:23 Capillary blood glucose measurement by glucometer (mas s/volume) 85 mg/dL 70-110 Serum or plasma troponin i.cardiac measu rement (mass/volume) - 03/06/18 00:30 Serum or plasma troponin i.cardiac measurement (mass/v olume) < ng/mL <0.30 Complete blood count (CBC) with automate d white blood cell (WBC) differential - 03/06/18 03:30 Blood leukocytes automated count (number/volume) 6.5 10*3/uL 4.3-11.0 Blood erythrocytes automated count (number/volume) 4.67 10*6/uL 4.35-5.85 Venous blood hemoglobin measurement (mass/volume) 14.7 g/dL 13.3-17.7 Blood hematocrit (volume fraction) 42 % 40-54 Automated erythrocyte mean corpuscular volume 90 [ foz_us] 80-99 Automated erythrocyte mean corpuscular h emoglobin (mass per erythrocyte) 32 pg 25-34 Automated erythrocyte mean corpuscular h emoglobin concentration measurement (mass/volume) 35 g/dL 32-36 Automated erythrocyte distribution width ratio 12. 4 % 10.0- 14.5 Automated blood platelet count (count/volume) 204 10*3/uL 130-400 Automated blood platelet mean volume measurement 10.2 [foz_us] 7.4-10.4 Automated blood neutrophils/100 leukocytes 52 % 42-75 Automated blood lymphocytes/100 leukocytes 35 % 12-44 Blood monocytes/100 leukocytes 11 % 0-12 Automated blood eosinophils/100 leukocytes 2 % 0-10 Automated blood basophils/100 leukocytes 0 % 0-10 Blood neutrophils automated count (number/volume) 3.4 10*3 1.8-7.8 Blood lymphocytes automated count (number/volume) 2.3 10*3 1.0-4.0 Blood monocytes automated count (number/volume) 0. 7 10*3 0.0-1.0 Automated eosinophil count 0.1 10*3/uL 0 .0-0.3 Automated blood basophil count (count/volume) 0.0 10*3/uL 0.0-0.1 Whole blood basic metabolic panel - 02/13 12/30 03:30 Serum or plasma sodium measurement (moles/volume) 139 mmol/L 135-145 Serum or plasma potassium measurement (moles/volume) 3.7 mmol/L 3.6-5.0 Serum or plasma chloride measurement (moles/volume) 103 mmol/L 98-107 Carbon dioxide 24 mmol/L 21-32 Serum or plasma anion gap determination (moles/volume) 12 mmol/L 5-14 Serum or plasma urea nitrogen measurement (mass/volume ) 27 mg/dL 7-18 Serum or plasma creatinine measurement (mass/volume) 1.26 mg/dL 0.60-1.30 Serum or plasma urea nitrogen/creatinine mass ratio 21 NRG Serum or plasma creatinine measurement w ith calculation of estimated glomerular filtration rate > NRG Serum or plasma glucose measurement (mass/volume) 271 mg/dL 70-105 Serum or plasma calcium measurement (mass/volume) 8.5 mg/dL 8.5-10.1 Serum or plasma phosphate measurement (m ass/volume) - 03/06/18 03:30 Serum or plasma phosphate measurement (mass/volume) 4.3 mg/dL 2.3-4.7 Magnesium - 03/06/18 03:30 Magnesium 2.7 mg/dL 1.8-2.4 Hemoglobin A1c - 03/06/18 03:30 Blood hemoglobin A1C measurement (mass/volume) 9.8 % 4.0-5.6 MEAN BLOOD GLUCOSE 235 % <=126 [id number] - 06/10/18 10:19 Serum or plasma urea nitrogen measurement (mass/volume ) 18 mg/dL 7-18 Serum or plasma creatinine measurement (mass/volume) 0.96 mg/dL 0.60-1.30 Serum or plasma urea nitrogen/creatinine mass ratio 19 NRG Serum or plasma creatinine measurement w ith calculation of estimated glomerular filtration rate > NRG Capillary blood glucose measurement by g lucometer (mass/volume) - 05/15/19 20:41 Capillary blood glucose measurement by glucometer (mas s/volume) 567 mg/dL 70-110 Complete blood count (CBC) with automate d white blood cell (WBC) differential - 05/15/19 20:42 Blood leukocytes automated count (number/volume) 7.9 10*3/uL 4.3-11.0 Blood erythrocytes automated count (number/volume) 4.89 10*6/uL 4.35-5.85 Venous blood hemoglobin measurement (mass/volume) 15.8 g/dL 13.3-17.7 Blood hematocrit (volume fraction) 44 % 40-54 Automated erythrocyte mean corpuscular volume 90 [ foz_us] 80-99 Automated erythrocyte mean corpuscular h emoglobin (mass per erythrocyte) 32 pg 25-34 Automated erythrocyte mean corpuscular h emoglobin concentration measurement (mass/volume) 36 g/dL 32-36 Automated erythrocyte distribution width ratio 12. 1 % 10.0- 14.5 Automated blood platelet count (count/volume) 220 10*3/uL 130-400 Automated blood platelet mean volume measurement 10.4 [foz_us] 7.4-10.4 Automated blood neutrophils/100 leukocytes 61 % 42-75 Automated blood lymphocytes/100 leukocytes 30 % 12-44 Blood monocytes/100 leukocytes 8 % 0-12 Automated blood eosinophils/100 leukocytes 1 % 0-10 Automated blood basophils/100 leukocytes 0 % 0-10 Blood neutrophils automated count (number/volume) 4.8 10*3 1.8-7.8 Blood lymphocytes automated count (number/volume) 2.3 10*3 1.0-4.0 Blood monocytes automated count (number/volume) 0. 6 10*3 0.0-1.0 Automated eosinophil count 0.1 10*3/uL 0 .0-0.3 Automated blood basophil count (count/volume) 0.0 10*3/uL 0.0-0.1 PT panel in platelet poor plasma by coag ulation assay - 05/15/19 20:42 Prothrombin time (PT) in platelet poor plasma by coagu lation assay 12.4 s 12.2-14.7 INR in platelet poor plasma or blood by coagulation as say 0.9 0.8-1.4 Activated partial thromboplastin time (a PTT) in platelet poor plasma bycoagulation assay - 05/15/19 20:42 Activated partial thromboplastin time (a PTT) in platelet poor plasma bycoagulation assay 27 s 24-35 Fibrin D-dimer FEU measurement in platel et poor plasma (mass/volume) - 05/15/19 20:42 Fibrin D-dimer FEU measurement in platelet poor plasma (mass/volume) <= ug/mL 0.00-0.49 Comprehensive metabolic panel - 05/15/19 20:42 Serum or plasma sodium measurement (moles/volume) 130 mmol/L 135-145 Serum or plasma potassium measurement (moles/volume) 4.7 mmol/L 3.6-5.0 Serum or plasma chloride measurement (moles/volume) 92 mmol/L 98-107 Carbon dioxide 24 mmol/L 21-32 Serum or plasma anion gap determination (moles/volume) 14 mmol/L 5-14 Serum or plasma urea nitrogen measurement (mass/volume ) 20 mg/dL 7-18 Serum or plasma creatinine measurement (mass/volume) 1.62 mg/dL 0.60-1.30 Serum or plasma urea nitrogen/creatinine mass ratio 12 NRG Serum or plasma creatinine measurement w ith calculation of estimated glomerular filtration rate 46 NRG Serum or plasma glucose measurement (mass/volume) 591 mg/dL 70-105 Serum or plasma calcium measurement (mass/volume) 9.7 mg/dL 8.5-10.1 Serum or plasma total bilirubin measurement (mass/volu me) 0.4 mg/dL 0.1-1.0 Serum or plasma alkaline phosphatase roge surement (enzymatic activity/volume) 89 U/L 40-136 Serum or plasma aspartate aminotransfera se measurement (enzymatic activity/volume) 12 U/L 5-34 Serum or plasma alanine aminotransferase measurement (enzymatic activity/volume) 21 U/L 0-55 Serum or plasma protein measurement (mass/volume) 6.7 g/dL 6.4-8.2 Serum or plasma albumin measurement (mass/volume) 4.2 g/dL 3.2-4.5 CALCIUM CORRECTED 9.5 mg/dL 8.5-10.1 Serum or plasma troponin i.cardiac measu rement (mass/volume) - 05/15/19 20:42 Serum or plasma troponin i.cardiac measurement (mass/v olume) < ng/mL <0.028 Beta-hydroxybutyric acid measurement - 0 05/15/19 20:42 Beta-hydroxybutyric acid measurement 0.10 mmol/L 0.00-0.27 Complete urinalysis with reflex to cultu re - 05/15/19 21:15 Urine color determination YELLOW NRG Urine clarity determination CLEAR NR G Urine pH measurement by test strip 6 5-9 Specific gravity of urine by test strip 1.010 1.016-1.022 Urine protein assay by test strip, semi-quantitative NEGATIVE NEGATIVE Urine glucose detection by automated test strip 4+ NEGATIVE Erythrocytes detection in urine sediment by light micr oscopy NEGATIVE NEGATIVE Urine ketones detection by automated test strip NE GATIVE NEGATIVE Urine nitrite detection by test strip NEGATIVE NEGATIVE Urine total bilirubin detection by test strip NEGA TIVE NEGATIVE Urine urobilinogen measurement by automated test strip (mass/volume) NORMAL NORMAL Urine leukocyte esterase detection by dipstick NEG ATIVE NEGATIVE Automated urine sediment erythrocyte cou nt by microscopy (number/high power field) RARE NRG Automated urine sediment leukocyte count by microscopy (number/high power field) NONE NRG Bacteria detection in urine sediment by light microsco py NEGATIVE NRG Squamous epithelial cells detection in u rine sediment by light microscopy RARE NRG Crystals detection in urine sediment by light microsco py NONE NRG Casts detection in urine sediment by light microscopy NONE NRG Mucus detection in urine sediment by light microscopy NEGATIVE NRG Complete urinalysis with reflex to culture NO NRG Capillary blood glucose measurement by g lucometer (mass/volume) - 05/15/19 21:58 Capillary blood glucose measurement by glucometer (mas s/volume) 185 mg/dL 70-110 Complete blood count (CBC) with automate d white blood cell (WBC) differential - 05/16/19 05:06 Blood leukocytes automated count (number/volume) 6.1 10*3/uL 4.3-11.0 Blood erythrocytes automated count (number/volume) 4.39 10*6/uL 4.35-5.85 Venous blood hemoglobin measurement (mass/volume) 13.8 g/dL 13.3-17.7 Blood hematocrit (volume fraction) 40 % 40-54 Automated erythrocyte mean corpuscular volume 91 [ foz_us] 80-99 Automated erythrocyte mean corpuscular h emoglobin (mass per erythrocyte) 31 pg 25-34 Automated erythrocyte mean corpuscular h emoglobin concentration measurement (mass/volume) 34 g/dL 32-36 Automated erythrocyte distribution width ratio 12. 1 % 10.0- 14.5 Automated blood platelet count (count/volume) 185 10*3/uL 130-400 Automated blood platelet mean volume measurement 10.0 [foz_us] 7.4-10.4 Automated blood neutrophils/100 leukocytes 44 % 42-75 Automated blood lymphocytes/100 leukocytes 41 % 12-44 Blood monocytes/100 leukocytes 11 % 0-12 Automated blood eosinophils/100 leukocytes 3 % 0-10 Automated blood basophils/100 leukocytes 1 % 0-10 Blood neutrophils automated count (number/volume) 2.7 10*3 1.8-7.8 Blood lymphocytes automated count (number/volume) 2.5 10*3 1.0-4.0 Blood monocytes automated count (number/volume) 0. 7 10*3 0.0-1.0 Automated eosinophil count 0.2 10*3/uL 0 .0-0.3 Automated blood basophil count (count/volume) 0.0 10*3/uL 0.0-0.1 Comprehensive metabolic panel - 05/16/19 05:06 Serum or plasma sodium measurement (moles/volume) 135 mmol/L 135-145 Serum or plasma potassium measurement (moles/volume) 4.2 mmol/L 3.6-5.0 Serum or plasma chloride measurement (moles/volume) 104 mmol/L 98-107 Carbon dioxide 22 mmol/L 21-32 Serum or plasma anion gap determination (moles/volume) 9 mmol/L 5-14 Serum or plasma urea nitrogen measurement (mass/volume ) 17 mg/dL 7-18 Serum or plasma creatinine measurement (mass/volume) 1.07 mg/dL 0.60-1.30 Serum or plasma urea nitrogen/creatinine mass ratio 16 NRG Serum or plasma creatinine measurement w ith calculation of estimated glomerular filtration rate > NRG Serum or plasma glucose measurement (mass/volume) 298 mg/dL 70-105 Serum or plasma calcium measurement (mass/volume) 8.5 mg/dL 8.5-10.1 Serum or plasma total bilirubin measurement (mass/volu me) 0.3 mg/dL 0.1-1.0 Serum or plasma alkaline phosphatase roge surement (enzymatic activity/volume) 67 U/L 40-136 Serum or plasma aspartate aminotransfera se measurement (enzymatic activity/volume) 11 U/L 5-34 Serum or plasma alanine aminotransferase measurement (enzymatic activity/volume) 16 U/L 0-55 Serum or plasma protein measurement (mass/volume) 5.2 g/dL 6.4-8.2 Serum or plasma albumin measurement (mass/volume) 3.3 g/dL 3.2-4.5 CALCIUM CORRECTED 9.1 mg/dL 8.5-10.1 Lipid 1996 panel - 05/16/19 05:06 Serum or plasma triglyceride measurement (mass/volume) 333 mg/dL <150 Serum or plasma cholesterol measurement (mass/volume) 201 mg/dL < 200 Serum or plasma cholesterol in HDL measurement (mass/v olume) 28 mg/dL 40-60 Cholesterol in LDL [mass/volume] in serum or plasma by direct assay 107 mg/dL 1-129 Serum or plasma cholesterol in VLDL measurement (mass/ volume) 67 mg/dL 5-40 Capillary blood glucose measurement by g lucometer (mass/volume) - 05/16/19 07:01 Capillary blood glucose measurement by glucometer (mas s/volume) 242 mg/dL 70-110 Capillary blood glucose measurement by g lucometer (mass/volume) - 05/16/19 10:34 Capillary blood glucose measurement by glucometer (mas s/volume) 144 mg/dL 70-110 Capillary blood glucose measurement by g lucometer (mass/volume) - 05/16/19 16:24 Capillary blood glucose measurement by glucometer (mas s/volume) 263 mg/dL 70-110 Capillary blood glucose measurement by g lucometer (mass/volume) - 05/16/19 19:58 Capillary blood glucose measurement by glucometer (mas s/volume) 258 mg/dL 70-110 Capillary blood glucose measurement by g lucometer (mass/volume) - 05/17/19 05:15 Capillary blood glucose measurement by glucometer (mas s/volume) 145 mg/dL 70-110 Automated blood complete blood count (he mogram) panel - 05/17/19 05:30 Blood leukocytes automated count (number/volume) 7.7 10*3/uL 4.3-11.0 Blood erythrocytes automated count (number/volume) 4.28 10*6/uL 4.35-5.85 Venous blood hemoglobin measurement (mass/volume) 13.3 g/dL 13.3-17.7 Blood hematocrit (volume fraction) 40 % 40-54 Automated erythrocyte mean corpuscular volume 92 [ foz_us] 80-99 Automated erythrocyte mean corpuscular h emoglobin (mass per erythrocyte) 31 pg 25-34 Automated erythrocyte mean corpuscular h emoglobin concentration measurement (mass/volume) 34 g/dL 32-36 Automated erythrocyte distribution width ratio 12. 2 % 10.0- 14.5 Automated blood platelet count (count/volume) 187 10*3/uL 130-400 Automated blood platelet mean volume measurement 9.7 [foz_us] 7.4-10.4 Comprehensive metabolic panel - 05/17/19 05:30 Serum or plasma sodium measurement (moles/volume) 138 mmol/L 135-145 Serum or plasma potassium measurement (moles/volume) 4.1 mmol/L 3.6-5.0 Serum or plasma chloride measurement (moles/volume) 110 mmol/L 98-107 Carbon dioxide 19 mmol/L 21-32 Serum or plasma anion gap determination (moles/volume) 9 mmol/L 5-14 Serum or plasma urea nitrogen measurement (mass/volume ) 27 mg/dL 7-18 Serum or plasma creatinine measurement (mass/volume) 1.21 mg/dL 0.60-1.30 Serum or plasma urea nitrogen/creatinine mass ratio 22 NRG Serum or plasma creatinine measurement w ith calculation of estimated glomerular filtration rate > NRG Serum or plasma glucose measurement (mass/volume) 152 mg/dL 70-105 Serum or plasma calcium measurement (mass/volume) 8.5 mg/dL 8.5-10.1 Serum or plasma total bilirubin measurement (mass/volu me) 0.2 mg/dL 0.1-1.0 Serum or plasma alkaline phosphatase roge surement (enzymatic activity/volume) 71 U/L 40-136 Serum or plasma aspartate aminotransfera se measurement (enzymatic activity/volume) 14 U/L 5-34 Serum or plasma alanine aminotransferase measurement (enzymatic activity/volume) 17 U/L 0-55 Serum or plasma protein measurement (mass/volume) 5.2 g/dL 6.4-8.2 Serum or plasma albumin measurement (mass/volume) 3.2 g/dL 3.2-4.5 CALCIUM CORRECTED 9.1 mg/dL 8.5-10.1 Capillary blood glucose measurement by g lucometer (mass/volume) - 05/17/19 09:30 Capillary blood glucose measurement by glucometer (mas s/volume) 202 mg/dL 70-110 Encounters ACCT No. Visit Date/Time Discharge Status Pt. Type Provider Facility Loc./Unit Complaint [id number] 12/11/2019 14:27:00 020 16:53:00 DIS Outpatient Rabia BARTLETT MD [facility] CRYPTOGENIC STROKE [id number] 05/15/2019 21:48:00 18:00:00 DIS Inpatient MARICARMEN JENKINS JAQUAN Russo [facility] 4TH HYPERGLYCEMIA,T IA/R FACIAL DROOP,ACUTE RENAL FAIL [id number] 11/14/2018 08:43:00 12:26:00 DIS Outpatient ADDY GARZA MD [facility] REHAB LOW BACK PAIN-BULGING D ISC [id number] 11/12/2018 10:00:00 23:59:59 CLS Preadmit Rabia BARTLETT MD [facility] CARD CRYPTOGENIC STROKE,HTN [id number] 09/06/2018 11:30:00 019 00:01:00 DIS Outpatient Rabia BARTLETT MD [facility] CARD CRYPTOGENIC STROKE,HTN [id number] 10/04/2018 08:02:00 00:01:00 DIS Outpatient ADDY GARZA MD [facility] REHAB LOW BACK PAIN-BULGING D ISC [id number] 07/18/2018 08:27:00 23:59:59 CLS Outpatient Rabia BARTLETT MD [facility] CARD CRYPTOGENIC STROKE [id number] 07/15/2018 10:53:00 23:59:59 CLS Rabia Ramirez MD [facility] CARD CRYPTOGENIC STROKE [id number] 07/10/2018 08:47:00 00:01:00 DIS Outpatient ADDY GARZA MD [facility] REHAB LOW BACK PAIN-BULGING D ISC [id number] 06/10/2018 10:08:00 23:59:59 CLS Outpatient KIP MARTIN MD [facility] RAD LS RADIC [id number] 03/15/2018 08:16:00 23:59:59 CLS Outpatient ADDY GARZA MD [facility] RAD TIA,FACIAL DROOP,RIGHT ARM WEAKNESS [id number] 03/05/2018 21:35:00 018 11:02:00 DIS Inpatient MARIELENA CHOI, LISA Goel [facility] ICU CVA WITH R ARM/R FACE WEAKNESS;SLURRED SPEECH- [id number] 03/31/2017 09:05:00 017 11:45:00 DIS Inpatient DANITA JENKINS, KEVIN Mcneil ia [facility] 4TH TIA VS CVA
[2020-01-10] MEDS ORDERED: HOLD METFORMIN - RECEIVED CONTRAST 20 ML VIAL IV SCH (18:15)
[2020-01-10] MEDS ORDERED: CATHETER FLUSH 10 ML SYR IV PRN (18:15)
[2020-01-10] MEDS ORDERED: IOHEXOL 350 MG/ML 100 ML (OMNIPAQUE 350) VIAL IV ONE (18:15)
[2020-01-10] MEDS ORDERED: NS 100 ML (IVPB) BAG IV ONE (18:15)
[2020-01-10 18:16] LABS: BASOPHILS % (AUTO) 1 % (0-10); EOSINOPHILS # (AUTO) 0.1 10^3/uL (0.0-0.3); EOSINOPHILS % (AUTO) 1 % (0-10); HEMATOCRIT 46 % (40-54); HEMOGLOBIN 16.2 G/DL (13.3-17.7); LYMPHOCYTES # (AUTO) 2.4 X 10^3 (1.0-4.0); LYMPHOCYTES % (AUTO) 29 % (12-44); MEAN CORPUSCULAR HEMOGLOBIN 32 PG (25-34); MEAN CORPUSCULAR HGB CONC 36 G/DL (32-36); MEAN CORPUSCULAR VOLUME 90 FL (80-99); MEAN PLATELET VOLUME 9.6 FL (7.4-10.4); MONOCYTES # (AUTO) 0.7 X 10^3 (0.0-1.0); MONOCYTES % (AUTO) 8 % (0-12); NEUTROPHILS # (AUTO) 5.3 X 10^3 (1.8-7.8); NEUTROPHILS % (AUTO) 62 % (42-75); PLATELET COUNT 249 10^3/uL (130-400); RED CELL DISTRIBUTION WIDTH 12.3 % (10.0-14.5); WHITE BLOOD COUNT 8.5 10^3/uL (4.3-11.0)
--- NOTE | 2020-01-10 18:26 | Diagnostic Imaging Report ---
PROCEDURE: CT head wo r/o stroke. TECHNIQUE: Multiple contiguous axial images were obtained through the brain without the use of intravenous contrast. Auto Exposure Controls were utilized during the CT exam to meet ALARA standards for radiation dose reduction. INDICATION: Right-sided weakness. Stroke alert. COMPARISON: CT head on 05/15/2019. FINDINGS: No large acute territorial ischemia, mass, or hemorrhage. No midline shift or mass effect. The ventricles, cortical sulci, and basilar cisterns are patent and unremarkable. The calvarium is intact. The visualized paranasal sinuses are clear. IMPRESSION: 1. No large acute territorial ischemia, mass, or hemorrhage. Dictated by: Dictated on workstation # [id number]
[2020-01-10 18:30] LABS: ALANINE AMINOTRANSFERASE 27 U/L (0-55); ALBUMIN 4.3 GM/DL (3.2-4.5); ALKALINE PHOSPHATASE 83 U/L (40-136); BILIRUBIN,TOTAL 0.2 MG/DL (0.1-1.0); BUN/CREATININE RATIO 15; CALCIUM 9.3 MG/DL (8.5-10.1); CARBON DIOXIDE 20 MMOL/L (21-32); CHLORIDE 101 MMOL/L (98-107); CREATININE SERUM 0.95 MG/DL (0.60-1.30); GFR ESTIMATED > 60; GLUCOSE 273 MG/DL (70-105); SODIUM 135 MMOL/L (135-145); TOTAL PROTEIN 6.8 GM/DL (6.4-8.2)
--- NOTE | 2020-01-10 18:32 | NUR ---
PT BACK FROM CT AT THIS TIME.
--- NOTE | 2020-01-10 18:38 | Diagnostic Imaging Report ---
EXAMINATION: Chest 1 view. HISTORY: Right-sided weakness. Concern for stroke. COMPARISON: Chest radiograph on 05/15/2019. FINDINGS: The lung volumes are normal. No focal consolidation is seen. No large pleural effusion or pneumothorax is seen. The cardiomediastinal silhouette is normal in size and contour. A loop recorder is seen overlying the cardiac silhouette. No acute osseous abnormality is seen. IMPRESSION: No acute pleuroparenchymal process. Dictated by: Dictated on workstation # [id number]
[2020-01-10 18:47] LABS: FIBRIN DEGRADATION PRODUCTS 0.29 UG/ML (0.00-0.49); PROTHROMBIN TIME PATIENT 11.9 SEC (12.2-14.7)
--- NOTE | 2020-01-10 18:54 | Diagnostic Imaging Report ---
PROCEDURE: CT angiography of the head and CT angiography of the neck with and without contrast. TECHNIQUE: Contiguous noncontrast images were obtained from the skull base through the vertex. After intravenous contrast administration, helical CT angiography of the neck was performed. Source data was reformatted into 3D MIP projections. Delayed post contrast acquisition was also obtained. Auto Exposure Controls were utilized during the CT exam to meet ALARA standards for radiation dose reduction. INDICATION: Right-sided weakness. Evaluate for stroke. COMPARISON: CT head performed earlier the same date. FINDINGS: CTA Neck: The visualized portions of the aortic arch demonstrate no evidence of aneurysm or dissection. There is conventional branching pattern of the great vessels of the aorta. The brachiocephalic artery is normal in course and caliber. The right and left common carotid origins are unremarkable. The origin of the left subclavian artery is patent. The common carotid arteries and internal carotid arteries demonstrate a normal course and caliber, without evidence of stenosis. There is atherosclerotic plaque in the bilateral carotid bulbs and proximal internal carotid arteries. No evidence of dissection in the carotid systems. The external carotid arteries are patent and unremarkable. The vertebral arteries are codominant. The origin of the right vertebral artery is seen and is unremarkable. The origin of the left vertebral artery is seen and is unremarkable. There is no focal stenosis seen within the neck. There is no dissection. The vertebral arteries are well visualized to up to the level of the basilar artery. The osseous structures of the cervical spine demonstrate degenerative changes without acute fracture or dislocation. Centrilobular emphysema and dependent atelectasis are noted in the lung bases. CTA brain: The bilateral distal internal carotid arteries are well visualized without significant stenosis. No stenosis is seen in the bilateral anterior, middle, and posterior cerebral arteries. No evidence of aneurysm the [place]. In the posterior circulation, both of the vertebral arteries demonstrate normal opacification. Note is made of a fenestrated right vertebral artery in the V4 segment. The vertebral arteries are codominant. Both the right and left PICA arteries are identified. The basilar artery is normal in course and caliber. The terminal branch vessels including the superior cerebellar arteries unremarkable. IMPRESSION: 1. No stenosis or aneurysm in the [place]. 2. No stenosis or dissection of the bilateral carotid and vertebral arteries. Dictated by: Dictated on workstation # [id number]
[2020-01-10 18:58] LABS: BILIRUBIN,URINE NEGATIVE (NEGATIVE); CLARITY,URINE CLEAR; COLOR,URINE YELLOW; GLUCOSE, URINE (UA) 3+ (NEGATIVE); KETONES,URINE NEGATIVE (NEGATIVE); LEUKOCYTE ESTERASE ,URINE NEGATIVE (NEGATIVE); NITRITE,URINE NEGATIVE (NEGATIVE); PROTEIN,URINE NEGATIVE (NEGATIVE)
--- NOTE | 2020-01-10 18:58 | ED Neurological Problem ---
General Chief Complaint: Neuro-Stroke Like Symptoms Stated Complaint: POSSIBLE STROKE Nursing Triage Note: PT PRESENTS TO ED FROM HOME WITH COMPLAINTS OF SLURRED/SLOWED SPEACH, R SIDED FACIAL NUMBNESS/WEAKNESS, AND R SIDED LEG WEAKNESS STARTING AT APROX 1730. Nursing Sepsis Screen: No Definite Risk Source: patient, old records Exam Limitations: no limitations History of Present Illness Date Seen by Provider: Jan 10, 2020 Time Seen by Provider: 17:56 Initial Comments This 49-year-old gentleman presents to the emergency room with abrupt onset of right-sided weakness, right arm numbness, and mild expressive aphasia and dysarthria. He denies any vision changes. He had been drinking approximately 5 beers early in the afternoon and then started growing. He walked into the house and noticed the symptoms when he began to speak to his . Time of onset was approximately 30 minutes prior to arrival which would also be last known well time (17:20). He is an insulin-dependent diabetic and continues to smoke. He reports his last A1c was 14. Fingerstick blood sugar on arrival was 264. Patient has a history of mild strokes and TIAs in the past. He has a chronic deficit of mild right-sided facial droop which is exacerbated today. He also has chronic weakness in the left leg which he attributes to lumbar disc disease. He is on aspirin and Plavix. He did take his Plavix today. Stroke activation is being paged. Patient arrived by private vehicle with his . Patient had a loop recorder placed last month by Dr. Dunlap. He just change primary care providers to Dr. Batista within the last week. Allergies and Home Medications Allergies Coded Allergies: No Known Drug Allergies (Unverified , 03/31/17) Home Medications Aspirin 81 Mg Tablet.dr, 81 MG PO HS, (Reported) Brexpiprazole 2 Mg Tablet, 2 MG PO HS, (Reported) Clopidogrel Bisulfate 75 Mg Tablet, 75 MG PO DAILY, (Reported) LAST FILLED #90 01-28-19 Cyclobenzaprine HCl 10 Mg Tablet, 10 MG PO TID PRN for MUSCLE SPASMS, (Reported) Duloxetine HCl 60 Mg Capsule.dr, 60 MG PO BID, (Reported) Gabapentin 600 Mg Tablet, 600 MG PO TID, (Reported) LAST FILLED #270 12-06-18 Hydrocodone Bit/Acetaminophen 1 Each Tablet, 1 TAB PO BID PRN for PAIN-MODERATE, (Reported) Insulin Aspart 300 Units/3 Ml Solution, 5 UNITS SQ AC Prescribed by: LISA PEGUERO on 05/17/19 1700 Insulin Detemir 100 Unit/1 Ml Insuln.pen, 35 UNITS SC BID, (Reported) Lisinopril 5 Mg Tablet, 5 MG PO DAILY, (Reported) Lovastatin 10 Mg Tablet, 10 MG PO HS, (Reported) LAST FILLED #30 03-02-19 Metformin HCl 500 Mg Tablet, 1,000 MG PO BID, (Reported) LAST FILLED #360 11-17-18 Pantoprazole Sodium 40 Mg Tablet.dr, 40 MG PO DAILY, (Reported) Tramadol HCl 50 Mg Tablet, 50 MG PO BID PRN for PAIN-MODERATE, (Reported) Patient Home Medication List Home Medication List Reviewed: Yes Review of Systems Review of Systems Constitutional: no symptoms reported Eyes: No Symptoms Reported Ears, Nose, Mouth, Throat: no symptoms reported Respiratory: no symptoms reported Cardiovascular: no symptoms reported Gastrointestinal: no symptoms reported Genitourinary: no symptoms reported Musculoskeletal: no symptoms reported Skin: no symptoms reported Psychiatric/Neurological: See HPI Endocrine: No Symptoms Reported Hematologic/Lymphatic: No Symptoms Reported Past Bjmbhbd-Oozrrb-Xcutrk Hx Past Med/Social Hx: Reviewed and Corrections made Patient Social History Alcohol Use: Occasionally Uses Number of Drinks Today: AA Alcohol Beverage of Choice: Beer Recreational Drug Use: No Smoking Status: Current Everyday Smoker Type Used: Cigarettes Recent Foreign Travel: No Contact w/Someone Who Travel: No Recent Infectious Disease Expo: No Recent Hopitalizations: No Physical Abuse: No Sexual Abuse: No Mistreated: No Fear: No Seasonal Allergies Seasonal Allergies: Yes Past Medical History Surgeries: Yes (LOW BACK SURGERY, LOOP RECORDER ) Cardiac (loop recorder), Orthopedic Respiratory: Yes Pneumonia Cardiac: Yes Hypertension Neurological: Yes (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) Stroke (right-sided facial droop), TIA Sexually Transmitted Disease: No HIV/AIDS: No Genitourinary: No Gastrointestinal: Yes Gastroesophageal Reflux Musculoskeletal: Yes (CHRONIC LEFT SIDED SCIATICA) Chronic Back Pain Endocrine: Yes Diabetes, Non-Insulin dep HEENT: No Cancer: No Psychosocial: No Integumentary: No Blood Disorders: No Adverse Reaction/Blood Tranf: No Family Medical History Reviewed Nursing Family Hx Cardiovascular disease 19 FATHER Completed stroke paternal grandmother patrnal grandfather Coronary thrombosis paternal grandmother Diabetes mellitus G8 SISTER Hypercholesterolemia 19 FATHER G8 BROTHER Hypertension 19 FATHER G8 BROTHER Physical Exam Vital Signs Vital Signs - First Documented 01/10/20 18:03 Temp 36.4 Pulse 78 Resp 18 B/P (MAP) 159/89 (112) Pulse Ox 96 Capillary Refill : Less Than 3 Seconds Height, Weight, BMI Height: 6'3.00" Weight: 196lbs. 8.0oz. 89.103991va; 25.00 BMI Method:Stated General Appearance: WD/WN, no apparent distress HEENT: PERRL/EOMI, normal ENT inspection Neck: normal inspection Respiratory: lungs clear, normal breath sounds, no respiratory distress, no accessory muscle use Cardiovascular: regular rate, rhythm, no edema, no murmur Gastrointestinal: normal bowel sounds, non tender, soft Extremities: normal inspection, no pedal edema Crainal Nerves: normal hearing, PERRL, abnormal speech (speech is sluggish, slightly slurred, and intermittently interrupted by stuttering), facial droop (right side) Coordination/Gait: normal finger to nose, abnormal gait (guarded gait but stable) Motor/Sensory: sensory deficit (right arm), weak motor strength RUE, weak motor strength RLE Skin: normal color, warm/dry Stroke NIH Stroke Scale Assessment Level of Consciousness: 0=Alert (0), Level of Consciousness-Questions: 1=Answers one question (1), LOC Commands: 0=Performs both tasks (0), Gaze: Normal (0), Visual Flores: 0=No visual loss (0), Facial Movement (Facial Paresis): 1=Minor paralysis (1), Motor Function-Arms Right: 1=Drift (1), Motor Function-Arms Left: 1=Drift (1), Motor Function-Legs Right: 1=Drift (1), Motor Function-Legs Left: 0=No drift (0), Limb Ataxia: 2=Present in two limbs (2), Sensory: 1=Mild to Moderate loss (1), Best Language: 0=No aphasia (0), Dysarthria: 1=Mild to moderate loss (1), Extinction & Inattention: 0=No abnormality (0), Total: 9 Stroke Thrombolytic Exclusion Age 18 or Over: Yes Acute intenal hemorrhage: No History of CVA: Yes Uncontrolled Coagulation Defec: No Intracranial Hemorrhage: No Severe Hypertension: No GI or Bleed: No Subarachnoid Hemorrhage: No Intracranial Neoplasm/Aneurysm: No Oral Anticoagulants: Yes Surgery or Trauma: No Puncture of Non-Compressible V: No Recent CPR: No Diabetic Hemorrhagic Retinopat: No Organ Biopsy: No Recent Obstetric Delivery: No Glucose: No Significant Hepatic Dysfunctio: No NIH Stoke Scale >22: No Bacterial Endocarditis: No Pericarditis: No Improving Symptoms: No Platelets: No Progress/Results/Core Measures Results/Orders Lab Results Laboratory Tests Test 01/10/20 17:59 01/10/20 18:19 01/10/20 18:41 Range/Units White Blood Count 8.5 4.3-11.0 10^3/uL Red Blood Count 5.09 4.35-5.85 10^6/uL Hemoglobin 16.2 13.3-17.7 G/DL Hematocrit 46 40-54 % Mean Corpuscular Volume 90 80-99 FL Mean Corpuscular Hemoglobin 32 25-34 PG Mean Corpuscular Hemoglobin Concent 36 32-36 G/DL Red Cell Distribution Width 12.3 10.0-14.5 % Platelet Count 249 130-400 10^3/uL Mean Platelet Volume 9.6 7.4-10.4 FL Neutrophils (%) (Auto) 62 42-75 % Lymphocytes (%) (Auto) 29 12-44 % Monocytes (%) (Auto) 8 0-12 % Eosinophils (%) (Auto) 1 0-10 % Basophils (%) (Auto) 1 0-10 % Neutrophils # (Auto) 5.3 1.8-7.8 X 10^3 Lymphocytes # (Auto) 2.4 1.0-4.0 X 10^3 Monocytes # (Auto) 0.7 0.0-1.0 X 10^3 Eosinophils # (Auto) 0.1 0.0-0.3 10^3/uL Basophils # (Auto) 0.0 0.0-0.1 10^3/uL Prothrombin Time 11.9 L 12.2-14.7 SEC INR Comment 1.0 0.8-1.4 Activated Partial Thromboplast Time 29 24-35 SEC D-Dimer 0.29 0.00-0.49 UG/ML Sodium Level 135 135-145 MMOL/L Potassium Level 4.0 3.6-5.0 MMOL/L Chloride Level 101 98-107 MMOL/L Carbon Dioxide Level 20 L 21-32 MMOL/L Anion Gap 14 5-14 MMOL/L Blood Urea Nitrogen 14 7-18 MG/DL Creatinine 0.95 0.60-1.30 MG/DL Estimat Glomerular Filtration Rate > 60 BUN/Creatinine Ratio 15 Glucose Level 273 H 70-105 MG/DL Glucometer 264 H 70-110 MG/DL Calcium Level 9.3 8.5-10.1 MG/DL Corrected Calcium 9.1 8.5-10.1 MG/DL Total Bilirubin 0.2 0.1-1.0 MG/DL Aspartate Amino Transf (AST/SGOT) 22 5-34 U/L Alanine Aminotransferase (ALT/SGPT) 27 0-55 U/L Alkaline Phosphatase 83 40-136 U/L Troponin I < 0.028 <0.028 NG/ML Total Protein 6.8 6.4-8.2 GM/DL Albumin 4.3 3.2-4.5 GM/DL Serum Alcohol 68 H <10 MG/DL Urine Color YELLOW Urine Clarity CLEAR Urine pH 6.0 5-9 Urine Specific [place] <=1.005 1.016-1.022 Urine Protein NEGATIVE NEGATIVE Urine Glucose (UA) 3+ H NEGATIVE Urine Ketones NEGATIVE NEGATIVE Urine Nitrite NEGATIVE NEGATIVE Urine Bilirubin NEGATIVE NEGATIVE Urine Urobilinogen 0.2 < = 1.0 MG/DL Urine Leukocyte Esterase NEGATIVE NEGATIVE Urine RBC (Auto) NEGATIVE NEGATIVE Urine RBC NONE /HPF Urine WBC NONE /HPF Urine Squamous Epithelial Cells 0-2 /HPF Urine Crystals NONE /LPF Urine Bacteria NEGATIVE /HPF Urine Casts NONE /LPF Urine Mucus NEGATIVE /LPF Urine Culture Indicated NO Urine Opiates Screen POSITIVE H NEGATIVE Urine Oxycodone Screen NEGATIVE NEGATIVE Urine Methadone Screen NEGATIVE NEGATIVE Urine Propoxyphene Screen NEGATIVE NEGATIVE Urine Barbiturates Screen NEGATIVE NEGATIVE Ur Tricyclic Antidepressants Screen NEGATIVE NEGATIVE Urine Phencyclidine Screen NEGATIVE NEGATIVE Urine Amphetamines Screen NEGATIVE NEGATIVE Urine Methamphetamines Screen NEGATIVE NEGATIVE Urine Benzodiazepines Screen NEGATIVE NEGATIVE Urine Cocaine Screen NEGATIVE NEGATIVE Urine Cannabinoids Screen NEGATIVE NEGATIVE My Orders Orders - IMMANUEL OATES MD Cbc With Automated Diff (01/10/20 18:05) Protime With Inr (01/10/20 18:05) Partial Thromboplastin Time (01/10/20 18:05) Comprehensive Metabolic Panel (01/10/20 18:05) Fibrin Degradation Products (01/10/20 18:05) Troponin I (01/10/20 18:05) Ua Culture If Indicated (01/10/20 18:05) Chest 1 View, Ap/Pa Only (01/10/20 18:05) Ekg Tracing (01/10/20 18:05) Accucheck Stat ONCE (01/10/20 18:05) Ed Iv/Invasive Line Start (01/10/20 18:05) Ed Iv/Invasive Line Start (01/10/20 18:05) Vital Signs Stroke Patient Q15M (01/10/20 18:05) Ct Head Wo-R/O Stroke (01/10/20 18:05) O2 (01/10/20 18:05) Intake & Output 06,14,22 (01/10/20 18:05) Monitor-Rhythm Ecg Trace Only (01/10/20 18:05) Dysphagia Screening Tool (01/10/20 18:05) Post Thrombolytic Adminstratio (01/10/20 18:05) Lipid Panel (01/11/20 06:00) Ct Angio Head/Neck (01/10/20 18:15) Iohexol Injection (Omnipaque 350 Mg/Ml 1 (01/10/20 18:15) Received Contrast (Hold Metformin- Contr (01/10/20 18:15) Sodium Chloride Flush (Catheter Flush Sy (01/10/20 18:15) Ns (Ivpb) (Sodium Chloride 0.9% Ivpb Bag (01/10/20 18:15) Alcohol (01/10/20 18:19) Drug Screen Stat (Urine) (01/10/20 18:19) Medications Given in ED Current Medications Medications Dose Ordered Sig/Anthony Route Start Time Stop Time Status Last Admin Dose Admin Apixaban 5 mg ONCE ONCE PO 01/10/20 20:15 01/10/20 20:18 DC 01/10/20 20:26 5 MG Iohexol 100 ml ONCE ONCE IV 01/10/20 18:15 01/10/20 18:17 DC 01/10/20 18:20 75 ML Sodium Chloride 10 ml NEEDED PRN IV 01/10/20 18:15 01/10/20 18:20 10 ML Sodium Chloride 100 ml ONCE ONCE IV 01/10/20 18:15 01/10/20 18:17 DC 01/10/20 18:20 80 ML Vital Signs/I&O 01/10/20 18:03 Temp 36.4 Pulse 78 Resp 18 B/P (MAP) 159/89 (112) Pulse Ox 96 Blood Pressure Mean: 112 FSBG Bedside Testing Finger Stick Blood Glucose: 264 Progress Progress Note #1: Time: 19:11 Progress Note Stroke activation was paged. Initial NIH score was 9. Patient was taken to CT. Plain CT was negative and was followed with CT angiogram which was also negative. Patient's symptoms improved significantly and repeat NIH was a 5. He was talking more clearly and briskly. He was able to walk across the room independently and safely. Case was discussed with Dr. Thurston, stroke neurologist at [facility]. Given the overall picture and the presence of alcohol consumption and sedating medications, he felt TPA was probably not the best option, especially in the context of Plavix use as well. I tend to agree with this. I will discuss with the patient further. Dr. Santiago also recommended monitoring the patient in the ER for another couple hours to ensure stability. Progress Note #2: Time: 20:45 Progress Note Patient continues to improve. Speech has cleared and is now brisk. Facial we akness and extremity weakness seems to be nearly resolved. Patient ambulated well and safely. Case was discussed with Dr. Sapp and Dr. Dunlap. Dr. Dunlap recommended stopping Plavix and aspirin in administering Eliquis instead. The first dose of Eliquis is being given in the ER. Patient passed his dysphagia screen before administering Eliquis. We will attempt to interrogate the loop recorder. Echocardiogram is being ordered for tomorrow. I emphasized the importance of smoking cessation and diabetic management with the patient. Initial ECG Impression Date: Jan 10, 2020 Initial ECG Impression Time: 17:56 Initial ECG Rate: 81 Initial ECG Rhythm: Normal Sinus Initial ECG Intervals: Normal Initial ECG Impression: Normal Comment Normal sinus rhythm with no ST elevation or depression. No abnormal intervals or axis deviation. Diagnostic Imaging Diagonstic Imaging: CT Plain Films/CT/US/NM/MRI: head Comments CT head viewed by me and report reviewed. See report below: NAME: RASHAAD REDDING [facility] REC#: [id number] PT STATUS: REG ER : 1970 PHYSICIAN: IMMANUEL OATES MD ADMIT DATE: 01/10/20/ER Signed Date of Exam:01/10/20 CT HEAD WO-R/O STROKE PROCEDURE: CT head wo r/o stroke. TECHNIQUE: Multiple contiguous axial images were obtained through the brain without the use of intravenous contrast. Auto Exposure Controls were utilized during the CT exam to meet ALARA standards for radiation dose reduction. INDICATION: Right-sided weakness. Stroke alert. COMPARISON: CT head on 05/15/2019. FINDINGS: No large acute territorial ischemia, mass, or hemorrhage. No midline shift or mass effect. The ventricles, cortical sulci, and basilar cisterns are patent and unremarkable. The calvarium is intact. The visualized paranasal sinuses are clear. IMPRESSION: 1. No large acute territorial ischemia, mass, or hemorrhage. Dictated by: Dictated on workstation # [id number] Dict: 01/10/20 1824 Trans: 01/10/20 182 [facility] [id number] Interpreted by: VIJAY GROVE DO Electronically signed by: VIJAY GROVE DO 01/10/20 1825 Diagonstic Imaging: Xray Plain Films/CT/US/NM/MRI: chest Comments Chest x-ray viewed by me and report reviewed. See report below: NAME: RASHAAD REDDING [facility] REC#: [id number] PT STATUS: REG ER : 1970 PHYSICIAN: IMMANUEL OATES MD ADMIT DATE: 01/10/20/ER Signed Date of Exam:01/10/20 CHEST 1 VIEW, AP/PA ONLY EXAMINATION: Chest 1 view. HISTORY: Right-sided weakness. Concern for stroke. COMPARISON: Chest radiograph on 05/15/2019. FINDINGS: The lung volumes are normal. No focal consolidation is seen. No large pleural effusion or pneumothorax is seen. The cardiomediastinal silhouette is normal in size and contour. A loop recorder is seen overlying the cardiac silhouette. No acute osseous abnormality is seen. IMPRESSION: No acute pleuroparenchymal process. Dictated by: Dictated on workstation # [id number] Dict: 01/10/201836 Trans: 01/10/201839 [facility] [id number] Interpreted by: VIJAY GROVE DO Electronically signed by: VIJAY GROVE DO 01/10/201839 Departure Communication (Admissions) Time/Spoke to Admitting Phy: 19:47 Dr. Sapp Time/Spoke to Consulting Phy: 19:50 Dr. Dunlap Impression Primary Impression: Expressive aphasia Additional Impression: Acute right-sided weakness Disposition: ADMITTED INPATIENT Condition: Improved Admissions Decision to Admit Reason: Admit from ER (General) Decision to Admit/Date: Jan 10, 2020 Time/Decision to Admit Time: 18:10 Departure-Patient Inst. Referrals: [facility] [place] ([place]P) Primary Care Physician ADDY GARZA MD (Family) Primary Care Physician Copy Copies To 1: KATELYN BATISTA MD, JOSHUA T MD Jan 10, 2020 18:58
[2020-01-10 19:08] LABS: BACTERIA,URINE NEGATIVE /HPF; SQUAMOUS EPITHELIAL CELL,UR 0-2 /HPF
[2020-01-10 19:17] LABS: AMPHETAMINE SCREEN, URINE NEGATIVE (NEGATIVE); BARBITURATE SCREEN URINE NEGATIVE (NEGATIVE); BENZODIAZEPINES SCREEN URINE NEGATIVE (NEGATIVE); CANNABINOID SCREEN, URINE NEGATIVE (NEGATIVE); COCAINE SCREEN URINE NEGATIVE (NEGATIVE); METHADONE STAT NEGATIVE (NEGATIVE); METHAMPHETAMINE SCREEN URINE S NEGATIVE (NEGATIVE); OPIATE SCREEN URINE POSITIVE (NEGATIVE); OXYCODONE STAT NEGATIVE (NEGATIVE); PROPOXYPHENE STAT NEGATIVE (NEGATIVE); TRICYCLIC ANTIDEPRESSANTS SCRE NEGATIVE (NEGATIVE)
[2020-01-10] MEDS ORDERED: APIXABAN 5 MG (ELIQUIS) TABLET PO ONE (20:15)
--- NOTE | 2020-01-10 20:53 | NUR ---
loop interrogated, recieved phone call from [employer], no abnormalities noted
[2020-01-10 21:23] VITALS: BP 139/86
[2020-01-10 21:58] VITALS: BP 139/86
[2020-01-10 22:00] VITALS: BP 142/82
[2020-01-10 23:00] VITALS: BP 132/80
[2020-01-10] MEDS ORDERED: HYDROcodone/APAP 5 MG/325 MG (LORTAB) TAB PO PRN (23:45)
[2020-01-11] VITALS (11 sets, daily range): BP systolic 101–134; BP diastolic 56–83
[2020-01-11 04:45] LABS: BUN/CREATININE RATIO 17; CALCIUM 8.7 MG/DL (8.5-10.1); CARBON DIOXIDE 21 MMOL/L (21-32); CHLORIDE 106 MMOL/L (98-107); CHOLESTEROL 191 MG/DL (< 200); CREATININE SERUM 0.84 MG/DL (0.60-1.30); GFR ESTIMATED > 60; GLUCOSE 154 MG/DL (70-105); HDL CHOLESTEROL 35 MG/DL (40-60); SODIUM 137 MMOL/L (135-145); TRIGLYCERIDES 272 MG/DL (<150); VLDL CHOLESTEROL 54 MG/DL (5-40)
[2020-01-11] MEDS ORDERED: inSUlin ASPART (NovoLOG) 1 UNIT/0.01 ML (CHARGE PER UNIT) SC SCH (08:00)
[2020-01-11] MEDS ORDERED: APIXABAN 5 MG (ELIQUIS) TABLET PO SCH (09:00)
[2020-01-11] MEDS ORDERED: DOCUSATE SODIUM 100 MG (COLACE) CAP PO SCH (09:00)
[2020-01-11] MEDS ORDERED: GABAPENTIN 600 MG (NEURONTIN) TAB PO SCH (09:00)
--- NOTE | 2020-01-11 11:16 | Short Stay Summary-Hospitalist ---
History of Present Illness HPI/Chief Complaint CC: TIA vs. 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 Stroke protocol maintained and no source of CVA so he was admitted to ICU 12 and risk stratified with Cardiology consultation and ECHO. Plavix was DC and Eliquis was started per Cardiology recommendations. His symptoms are completely resolved now and although per protocol therapy services were initiated he was wanting to go home and patient was sent home on higher dose of statin than his home dose and antiplatelet therapy was DC and OAC was initiated since this appeared to be an embolic type of recurrent TIA and that medication is preferred. Source: patient Exam Limitations: no limitations Date Seen 01/11/20 Time Seen by a Provider: 11:00 Attending Physician Rayne Samayoa DO PCP Nick Ryan MD Referring Physician Date of Admission Jan 10, 2020 at 20:16 Home Medications & Allergies Home Medications Reviewed patient Home Medication Reconciliation performed by pharmacy medication reconciliations in flight technician and/or nursing. Patients Allergies have been reviewed. Allergies Allergies Coded Allergies No Known Drug Allergies (Unverified03/31/17) Past Gzgrgfg-Qkonzt-Kmqwjs Hx Past Med/Social Hx: Reviewed Nursing Past Med/Soc Hx, Reviewed and Corrections made Patient Social History Marrital Status: Employed/Student: unemployed Alcohol Use: Occasionally Uses Number of Drinks Today: AA Alcohol Beverage of Choice: Beer Recreational Drug Use: No Smoking Status: Current Everyday Smoker Type Used: Cigarettes Recent Foreign Travel: No Contact w/other who traveled: No Recent Hopitalizations: No Recent Infectious Disease Expo: No Immunizations Up To Date Date of Pneumonia Vaccine: Jan 09, 2010 Seasonal Allergies Seasonal Allergies: Yes Past Medical History Surgeries: Cardiac (loop recorder), Orthopedic Cardiac: Hypertension Neurological: Stroke (right-sided facial droop), TIA Sexually Transmitted Disease: No HIV/AIDS: No Gastrointestinal: Gastroesophageal Reflux Musculoskeletal: Chronic Back Pain Endocrine: Diabetes, Non-Insulin dep History of Blood Disorders: No Adverse Reaction to Blood [place]: No Family History Reviewed Nursing Family Hx Cardiovascular disease 19 FATHER Completed stroke paternal grandmother patrnal grandfather Coronary thrombosis paternal grandmother Diabetes mellitus G8 SISTER Hypercholesterolemia 19 FATHER G8 BROTHER Hypertension 19 FATHER G8 BROTHER Review of Systems Constitutional: see HPI Psychiatric/Neurological: Numbness, Paresthesia, Pre-Existing Deficit Physical Exam Physical Exam Vital Signs Vital Signs - First Documented 01/10/20 01/10/20 18:03 21:21 Temp 36.4 Pulse 78 Resp 18 B/P (MAP) 159/89 (112) Pulse Ox 96 O2 Delivery Room Air Capillary Refill : Less Than 3 Seconds Height, Weight, BMI Height: 6'3.00" Weight: 196lbs. 8.0oz. 89.037214wn; 24.67 BMI Method:Stated General Appearance: No Apparent Distress, WD/WN, Chronically ill Eyes: Bilateral Eye Normal Inspection, Bilateral Eye PERRL HEENT: PERRL/EOMI, TMs Normal, Normal ENT Inspection, Pharynx Normal Neck: Full Range of Motion, Normal Inspection, Non Tender, Supple, Carotid Bruit Respiratory: Chest Non Tender, Lungs Clear, Normal Breath Sounds, No Accessory Muscle Use, No Respiratory Distress Cardiovascular: Regular Rate, Rhythm, No Edema, No Gallop, No JVD, No Murmur, Normal Peripheral Pulses Gastrointestinal: Normal Bowel Sounds, No Organomegaly, No Pulsatile Mass, Non Tender, Soft Back: Normal Inspection, No CVA Tenderness, No Vertebral Tenderness Extremity: Normal Capillary Refill, Normal Inspection, Normal Range of Motion, Non Tender, No Calf Tenderness, No Pedal Edema Neurologic/Psychiatric: Alert, Oriented x3, No Motor/Sensory Deficits, Normal Mood/Affect Skin: Normal Color, Warm/Dry Lymphatic: No Adenopathy Results Results/Procedures Labs Laboratory Tests 01/10/20 17:59 01/11/20 03:38 Patient resulted labs reviewed. Short Stay Diagnosis Discharge Diagnosis-Short Stay Admission Diagnosis Assessment: TIA vs recurrent CVA now symptoms resolved DM labile readings at home HTN HLP Loop recorder placed last month due to suspicion this is embolic Smoker Plan: Stop smoking OAC DC Plavix Final Discharge Diagnosis Assessment: TIA vs recurrent CVA now symptoms resolved DM labile readings at home HTN HLP Loop recorder placed last month due to suspicion this is embolic Smoker Plan: Stop smoking OAC DC Plavix Conclusion Plan Plan: Stop smoking OAC DC Plavix DC home Diagnosis/Problems Diagnosis/Problems (1) TIA (transient ischemic attack) (2) Type 2 diabetes mellitus with hyperglycemia (3) Other chronic pain (4) HTN (hypertension) (5) Acute right-sided weakness Status: Acute (6) Weakness on right side of face Status: Acute Clinical Quality Measures DVT/VTE Risk/Contraindication: Risk Factor Score Per Nursin RFS Level Per Nursing on Admit: 2=Moderate RAYNE SAMAYOA DO Jan 11, 2020 11:15
[2020-01-11] MEDS ORDERED: ATOR80TA76 PO (12:16)
[2020-01-11] MEDS ORDERED: APIX5TAB PO (12:16)
[2020-01-11] MEDS ORDERED: ASPI-586 PO (13:41)
--- NOTE | 2020-01-11 15:13 | Consultation-Cardiology ---
HPI-Cardiology Cardiology Consultation: Date of Consultation 01/11/20 Date of Admission Attending Physician Rayne Samayoa DO Admitting Physician Nick Ryan MD Consulting Physician Rabia DUNLAP MD HPI: Time Seen by a Provider: 13:00 Chief Complaint: Acute stroke This is a 49-year-old gentleman who has previous history of cryptogenic stroke requiring an implantable loop recorder which was placed last month. He presented with abrupt onset of right-sided weakness, right arm numbness and mild expressive aphasia and dysarthria. History of alcohol and active smoking. He has history of diabetes as well. Elevated blood sugars. He is been on aspirin and Plavix. He denies any cardiac complaints. He specifically denied any chest pain or shortness of breath. No pertinent family history. He was treated in the ER per the stroke protocol. Review of Systems-Cardiology Review of Systems Constitutional: As described under HPI; No As described under HPI, No no symptoms reported, No chills, No fever, No lightheadedness Eyes: No As described under HPI, No no symptoms reported, No blindness, No blurred vision, No contact lenses, No drainage, No decreased acuity, No foreign body sensation, No pain, No vision change Ears/Nose/Throat: No As described under HPI, No no symptoms reported, No chronic hearing loss, No ear discharge, No ear pain, No nasal drainage, No ulcerations Respiratory: No no symptoms reported; As described under HPI; No As described under HPI, No cough, No orthopnea, No shortness of breath, No SOB with excertion Cardiovascular: No no symptoms reported; As described under HPI; No As described under HPI, No chest pain, No edema, No irregular heart rate, No lightheadedness, No palpitations Gastrointestinal: No no symptoms reported, No As described under HPI, No abdomen distended, No abdominal pain, No blood streaked bowels, No constipation, No diarrhea, No nausea, No vomiting, No stool coloration changes Genitourinary: No As described under HPI, No burning, No dysuria, No discharge, No frequency, No flank pain, No hematuria, No urgency Skin: No rash, No skin related problems, No ulcerations Psychiatric/Neurological: As described under HPI, focal weakness; No anxiety, No depression, No seizure, No syncope Hematologic: No bleeding abnormalities WXH-Beikyt-Kdzuas Hx Patient Social History Alcohol Use: Occasionally Uses Recreational Drug Use: No Smoking Status: Current Everyday Smoker Type Used: Cigarettes Recent Foreign Travel: No Recent Infectious Disease Expo: No Immunizations Up To Date Date of Pneumonia Vaccine: Jan 09, 2010 Past Medical History PMH As described under Assessment. Family Medical History Family History: Cardiovascular disease 19 FATHER Completed stroke paternal grandmother patrnal grandfather Coronary thrombosis paternal grandmother Diabetes mellitus G8 SISTER Hypercholesterolemia 19 FATHER G8 BROTHER Hypertension 19 FATHER G8 BROTHER Allergies and Home Medications Allergies Coded Allergies: No Known Drug Allergies (Unverified , 03/31/17) Home Medications Apixaban 5 Mg Tablet, 5 MG PO BID Prescribed by: RAYNE SAMAYOA on 01/11/20 1216 Aspirin 81 Mg Tablet.dr, 81 MG PO DAILY Prescribed by: CORINNE VARGAS on 01/11/20 1341 Atorvastatin Calcium 80 Mg Tablet, 80 MG PO HS Prescribed by: RAYNE SAMAYOA on 01/11/20 1216 Brexpiprazole 2 Mg Tablet, 2 MG PO HS, (Reported) Cyclobenzaprine HCl 10 Mg Tablet, 10 MG PO TID PRN for MUSCLE SPASMS, (Reported) Duloxetine HCl 60 Mg Capsule.dr, 60 MG PO BID, (Reported) Gabapentin 600 Mg Tablet, 600 MG PO TID, (Reported) LAST FILLED #270 12-06-18 Hydrocodone Bit/Acetaminophen 1 Each Tablet, 1 TAB PO BID PRN for PAIN-MODERATE, (Reported) Insulin Aspart 300 Units/3 Ml Solution, 5 UNITS SQ AC Prescribed by: LISA PEGUERO on 05/17/19 1700 Insulin Detemir 100 Unit/1 Ml Insuln.pen, 35 UNITS SC BID, (Reported) Lisinopril 5 Mg Tablet, 5 MG PO DAILY, (Reported) Metformin HCl 500 Mg Tablet, 1,000 MG PO BID, (Reported) LAST FILLED #360 11-17-18 Pantoprazole Sodium 40 Mg Tablet.dr, 40 MG PO DAILY, (Reported) Tramadol HCl 50 Mg Tablet, 50 MG PO BID PRN for PAIN-MODERATE, (Reported) Patient Home Medication List Home Medication List Reviewed: Yes Physical Exam-Cardiology Physical Exam Vital Signs/I&O 01/11/20 01/11/20 01/11/20 01/11/20 04:00 04:00 05:00 06:00 Pulse 75 73 74 Resp 15 13 12 B/P (MAP) 121/79 (93) 127/81 (96) 125/79 (94) Pulse Ox 97 95 96 O2 Delivery Room Air Room Air Room Air Room Air 01/11/20 01/11/20 01/11/20 01/11/20 07:00 07:00 08:00 08:00 Temp 37.1 Pulse 73 81 78 Resp 12 17 B/P (MAP) 116/62 (80) 126/83 (97) Pulse Ox 96 93 O2 Delivery Room Air Room Air Room Air 01/11/20 01/11/20 01/11/20 01/11/20 09:00 12:00 12:00 13:00 Pulse 90 89 Resp 15 B/P (MAP) 134/82 (99) Pulse Ox 94 94 O2 Delivery Room Air Room Air Room Air 01/11/20 14:58 Temp 37.1 Pulse 89 Resp 15 B/P (MAP) 134/82 Pulse Ox 94 O2 Delivery Room Air 01/11/20 00:00 Intake Total 240 ml Output Total 0 ml Balance 240 ml Capillary Refill : Less Than 3 Seconds Constitutional: appears stated age; No apparent distress; well-developed, well- nourished HEENT: PERRL; No discharge; hearing is well preserved, oral hygience is good; No ulceration, No xanthelasmas are seen Neck: No carotid bruit; carotid pulses are 2 + bilaterally Respiratory: chest is bilaterally symmetric, lungs clear to auscultation Cardiovascular: regular rate-rhythm, S1 and S2 Gastrointestinal: soft, audible bowel sounds; No spleenomegaly Rectal: deferred Extremities: normal range of motion, non-tender, normal inspection; No clubbing, No cyanosis; no lower extremity edema bilateral; No significant edema Neurologic/Psychiatric: no motor/sensory deficits, alert, normal mood/affect, oriented x 3 Skin: normal color; No rash, No ulcerations Data Review Labs Laboratory Tests 01/10/20 17:59: White Blood Count 8.5, Red Blood Count 5.09, Hemoglobin 16.2, Hematocrit 46, Mean Corpuscular Volume 90, Mean Corpuscular Hemoglobin 32, Mean Corpuscular Hemoglobin Concent 36, Red Cell Distribution Width 12.3, Platelet Count 249, Mean Platelet Volume 9.6, Neutrophils (%) (Auto) 62, Lymphocytes (%) (Auto) 29, Monocytes (%) (Auto) 8, Eosinophils (%) (Auto) 1, Basophils (%) (Auto) 1, Neutrophils # (Auto) 5.3, Lymphocytes # (Auto) 2.4, Monocytes # (Auto) 0.7, Eosinophils # (Auto) 0.1, Basophils # (Auto) 0.0, Prothrombin Time 11.9L, INR Comment 1.0, Activated Partial Thromboplast Time 29, D-Dimer 0.29, Sodium Level 135, Potassium Level 4.0, Chloride Level 101, Carbon Dioxide Level 20L, Anion Gap 14, Blood Urea Nitrogen 14, Creatinine 0.95, Estimat Glomerular Filtration Rate > 60, BUN/Creatinine Ratio 15, Glucose Level 273H, Glucometer 264H, Calcium Level 9.3, Corrected Calcium 9.1, Total Bilirubin 0.2, Aspartate Amino Transf (AST/SGOT) 22, Alanine Aminotransferase (ALT/SGPT) 27, Alkaline Phosphatase 83, Troponin I < 0.028, Total Protein 6.8, Albumin 4.3 01/10/20 18:19: Serum Alcohol 68H 01/10/20 18:41: Urine Color YELLOW, Urine Clarity CLEAR, Urine pH 6.0, Urine Specific [place] <=1.005, Urine Protein NEGATIVE, Urine Glucose (UA) 3+H, Urine Ketones NEGATIVE, Urine Nitrite NEGATIVE, Urine Bilirubin NEGATIVE, Urine Urobilinogen 0.2, Urine Leukocyte Esterase NEGATIVE, Urine RBC (Auto) NEGATIVE, Urine RBC NONE, Urine WBC NONE, Urine Squamous Epithelial Cells 0-2, Urine Crystals NONE, Urine Bacteria NEGATIVE, Urine Casts NONE, Urine Mucus NEGATIVE, Urine Culture Indicated NO, Urine Opiates Screen POSITIVEH, Urine Oxycodone Screen NEGATIVE, Urine Methadone Screen NEGATIVE, Urine Propoxyphene Screen NEGATIVE, Urine Barbiturates Screen NEGATIVE, Ur Tricyclic Antidepressants Screen NEGATIVE, Urine Phencyclidine Screen NEGATIVE, Urine Amphetamines Screen NEGATIVE, Urine Methamphetamines Screen NEGATIVE, Urine Benzodiazepines Screen NEGATIVE, Urine Cocaine Screen NEGATIVE, Urine Cannabinoids Screen NEGATIVE 01/11/20 03:38: Sodium Level 137, Potassium Level 4.0, Chloride Level 106, Carbon Dioxide Level 21, Anion Gap 10, Blood Urea Nitrogen 14, Creatinine 0.84, Estimat Glomerular Filtration Rate > 60, BUN/Creatinine Ratio 17, Glucose Level 154H, Calcium Level 8.7, Triglycerides Level 272H, Cholesterol Level 191, LDL Cholesterol Direct 119, VLDL Cholesterol 54H, HDL Cholesterol 35L 01/11/20 09:31: Glucometer 181H A/P-Cardiology Assessment/Admission Diagnosis Acute stroke, recovering, Previous history of cryptogenic stroke, Diabetes, Alcohol use, Active smoking, Hypertension, Hyperlipidemia Plan Acute stroke, recovering, patient was treated according to the stroke protocol. CT head did not show any bleed. CT angiography did not show any carotid or vertebral disease CT angiography also did not show any intracranial occlusion. No atrial fibrillation on telemetry. was on aspirin and Plavix. I discussed at length with the patient and recommended that the patient start E liquis 5 mg twice a day. There are multiple reasons for my judgment call. I discussed with the patient that at this point in time I do not have a clear cardiac etiology for embolization. However he was on aspirin and Plavix and still had a stroke. Therefore I recommended that he continues to be on low-dose aspirin and Eliquis 5 mg twice a day. There is a risk of bleeding. He understands and agrees with the logic of going off aspirin/Plavix to Eliquis and aspirin. I've also requested him to call his neurologist Dr. Covarrubias and discuss with him about further management. Echocardiogram showed normal LV function with no wall motion abnormalities. Negative bubble study. Previous history of cryptogenic stroke, ILR. Device interrogation is recommended. Diabetes, deferred to the primary team. Alcohol use, advised abstinence. Active smoking, strongly recommended to quit. Hypertension, continue same medications. Hyperlipidemia, agree with changing to high dose Lipitor. Thank you for your consultation. Please call me if you have any questions. Millie Dunlap MD, FACP, FACC, FSCAI, FHRS, CCDS Interventional Cardiology Cardiac Electrophysiology Vascular Medicine and Endovascular Interventions Clinical Quality Measures DVT/VTE Risk/Contraindication: Risk Factor Score Per Nursin RFS Level Per Nursing on Admit: 2=Moderate Rabia DUNLAP MD Jan 11, 2020 15:13
== END 2020-01-11 14:00 | disposition home or self-care (01) ==
LOC: EDUNIT# 17:54 → ER 17:56 → ICU 20:16
PROVIDERS: ADMIT Internal Medicine; ATTEND Internal Medicine
DX: R47.81 Slurred speech (principal); R29.898 Other symptoms and signs involving the musculoskeletal system; R20.0 Anesthesia of skin; R47.1 Dysarthria and anarthria; I69.392 Facial weakness following cerebral infarction; E11.65 Type 2 diabetes mellitus with hyperglycemia; F17.210 Nicotine dependence, cigarettes, uncomplicated; I10 Essential (primary) hypertension; K21.9 Gastro-esophageal reflux disease without esophagitis; M54.9 Dorsalgia, unspecified; Z79.4 Long term (current) use of insulin; Z87.01 Personal history of pneumonia (recurrent); Z79.01 Long term (current) use of anticoagulants; E78.5 Hyperlipidemia, unspecified
CPT/HCPCS: 36415; 70450; 70496; 70498; 71045; 80048; 80053; 80061; 80306; 80320; 81000; 82962; 84484; 85025; 85379; 85610; 85730; 93041; 93306

== ENCOUNTER → 2021-03-24 | Outpatient (CLI) | payer MEDICARE ==
[~2021-03-24] MED LIST changes: +APIX5TAB PO; +ASPI-1238 PO; +ASPI-586 PO; -ASPI-983 PO; +ATOR80TA76 PO; -LISI-556 PO; +LISI-729 PO; +ONDA4TAB11 PO; -PANT40TA3 PO; +PANT40TA52 PO
--- NOTE | 2021-03-24 09:04 | Diagnostic Imaging Report ---
EXAMINATION: Thoracic spine at 800 hours. INDICATION: Pain radiating to left flank. AP and lateral views were obtained. There are no prior thoracic spine examinations available for comparison. This study is less than optimal as the upper thoracic spine is not well-visualized on the lateral view. There is no abnormality evident in this region on the AP view. In reviewing the previous CTA head and neck exam of 01/10/2020, there was no sign of an acute bony abnormality of the upper thoracic spine either. The vertebral body heights and alignment are generally within normal limits. The intervertebral spaces are fairly well-maintained. There is no fracture or acute bony abnormality evident. There is no sign of a paraspinal mass. Incidental note is made of a loop recorder device overlying the left thorax. IMPRESSION: There is no acute bony abnormality of thoracic spine. Dictated by: Dictated on workstation # [id number]
--- NOTE | 2021-03-24 09:23 | Diagnostic Imaging Report ---
EXAM: Lumbar spine at 8:01 AM INDICATION: Back pain Three views were obtained. The previous MRI lumbar spine exam of 06/10/2018 noted degenerative disc and bony disease at L4-L5 resulting in mild central stenosis at the L4-L5 level. On this exam, the degenerative changes are again evident and seem similar to the prior study. There is narrowing of the disc space and sclerosis of the opposing endplates of L4 and L5. The other intervertebral spaces are fairly well-maintained. There is no fracture or acute bony abnormality evident. There is no evidence for a paraspinal mass. There is mild symmetrical sclerosis of the sacroiliac joints. IMPRESSION: 1. There is no evidence for an acute bony abnormality. 2. The degenerative disc and bony disease at the L4-L5 level seen previously does not appear to have progressed significantly. However, if there is clinical concern that the mild central stenosis at this level seen on the previous MRI exam has worsened, then a repeat MRI exam would be recommended for further evaluation. Dictated by: Dictated on workstation # [id number]
== END ==
LOC: RAD 07:33
DX: M51.36 Other intervertebral disc degeneration, lumbar region (principal); R10.9 Unspecified abdominal pain
CPT/HCPCS: 72070; 72100

== ENCOUNTER 2021-03-25 14:00 | Emergency (ER) | payer MEDICARE ==
[~2021-03-25] VITALS: Ht 187.9 cm; Wt 78.0 kg
[~2021-03-25 14:00] MED LIST changes: -ONDA4TAB11 PO
[2021-03-25] MEDS ORDERED: NS IV 1000 ML 1,000 ML IV SCH (14:45)
[2021-03-25] MEDS ORDERED: NS IV 1000 ML 1,000 ML IV ONE (14:45)
[2021-03-25 15:00] LABS: BASOPHILS % (AUTO) 0 % (0-10); EOSINOPHILS # (AUTO) 0.1 10^3/uL (0.0-0.3); EOSINOPHILS % (AUTO) 1 % (0-10); HEMATOCRIT 45 % (40-54); HEMOGLOBIN 15.7 g/dL (13.3-17.7); LYMPHOCYTES # (AUTO) 2.2 10^3/uL (1.0-4.0); LYMPHOCYTES % (AUTO) 25 % (12-44); MEAN CORPUSCULAR HEMOGLOBIN 32 pg (25-34); MEAN CORPUSCULAR HGB CONC 35 g/dL (32-36); MEAN CORPUSCULAR VOLUME 89 fL (80-99); MEAN PLATELET VOLUME 9.8 fL (9.0-12.2); MONOCYTES # (AUTO) 0.6 10^3/uL (0.0-1.0); MONOCYTES % (AUTO) 7 % (0-12); NEUTROPHILS # (AUTO) 5.6 10^3/uL (1.8-7.8); NEUTROPHILS % (AUTO) 66 % (42-75); PLATELET COUNT 219 10^3/uL (130-400); WHITE BLOOD COUNT 8.5 10^3/uL (4.3-11.0)
[2021-03-25 15:04] LABS: BILIRUBIN,URINE NEGATIVE (NEGATIVE); CLARITY,URINE CLEAR; COLOR,URINE YELLOW; GLUCOSE, URINE (UA) 3+ (NEGATIVE); KETONES,URINE NEGATIVE (NEGATIVE); LEUKOCYTE ESTERASE ,URINE NEGATIVE (NEGATIVE); NITRITE,URINE NEGATIVE (NEGATIVE); PH,URINE 5.5 (5-9); PROTEIN,URINE 1+ (NEGATIVE)
[2021-03-25 15:09] LABS: ALBUMIN 3.9 GM/DL (3.2-4.5); CHLORIDE 98 MMOL/L (98-107); POTASSIUM 3.4 MMOL/L (3.6-5.0); SODIUM 135 MMOL/L (135-145)
[2021-03-25 15:10] LABS: CALCIUM 9.1 MG/DL (8.5-10.1)
[2021-03-25 15:11] LABS: GLUCOSE 269 MG/DL (70-105); TOTAL PROTEIN 6.3 GM/DL (6.4-8.2)
[2021-03-25 15:12] LABS: CARBON DIOXIDE 22 MMOL/L (21-32)
[2021-03-25 15:13] LABS: BILIRUBIN,TOTAL 0.4 MG/DL (0.1-1.0)
[2021-03-25 15:14] LABS: ALKALINE PHOSPHATASE 81 U/L (40-136)
--- NOTE | 2021-03-25 15:14 | Diagnostic Imaging Report ---
INDICATION: Hyperglycemia, dizziness. TECHNIQUE: Single view chest 2:54 PM. CORRELATION STUDY: 05/15/2019 FINDINGS: The heart size, mediastinal configuration and pulmonary vascularity are within normal limits. Loop recorder device has been placed over the central aspect of the heart. The lungs are clear with no consolidating infiltrate. There is no significant effusion or pneumothorax. IMPRESSION: 1. Negative for acute abnormality of the chest. Dictated by: Dictated on workstation # [id number]
[2021-03-25 15:15] LABS: CREATININE SERUM 1.06 MG/DL (0.60-1.30); GFR ESTIMATED > 60
[2021-03-25 15:16] LABS: BUN/CREATININE RATIO 12
[2021-03-25 15:18] LABS: ALANINE AMINOTRANSFERASE 18 U/L (0-55); MAGNESIUM 1.8 MG/DL (1.6-2.4)
--- NOTE | 2021-03-25 15:25 | ED General ---
General Chief Complaint: Glucose Problems Stated Complaint: HIGH BLOOD SUGAR/ DIZINESS Nursing Triage Note: PT REPORTS BEING SENT TO ED FROM [facility]. PT REPORTS BEING A TYPE 1 DIABETIC AND A1C WAS OVER 11 AND GLUCOSE WAS 44 TODAY. PT C/O DIZZINESS, NAUSEA, ARECHIGA. PT REPORTS NOT BEING COMPLIANT WITH MEDICATIONS. Nursing Sepsis Screen: No Definite Risk Source of Information: Patient Exam Limitations: No Limitations History of Present Illness Date Seen by Provider: Mar 25, 2021 Time Seen by Provider: 14:40 Initial Comments Patient presents ER by private conveyance with chief complaint elevated hyperglycemia. He sees Dr. Batista's practitioner and was called and told that his A1c was 11 and his blood sugars been running around 300. He says he is been asymptomatic so he really did not mind that his blood sugars ran that high. He states he is a type I diabetic for many years. He says part of the reason he has difficulty remembering to take his insulin is because he goes back and forth between days and nights. He is not having any dysuria but he says his urine has been particularly malodorous the past day or so. He has been having urinary frequency. The patient is endorsing nausea, headache and dizziness today. He does not test his ketones at home. Allergies and Home Medications Allergies Coded Allergies: No Known Drug Allergies (Unverified , 03/31/17) Home Medications Apixaban 5 Mg Tablet, 5 MG PO BID Prescribed by: KEVIN SAMAYOA on 01/11/20 1216 Aspirin 81 Mg Tablet., 81 MG PO DAILY Prescribed by: CORINNE VARGAS on 01/11/20 1341 Atorvastatin Calcium 80 Mg Tablet, 80 MG PO HS Prescribed by: KEVIN SAMAYOA on 01/11/20 1216 Brexpiprazole 2 Mg Tablet, 2 MG PO HS, (Reported) Cyclobenzaprine HCl 10 Mg Tablet, 10 MG PO TID PRN for MUSCLE SPASMS, (Reported) Duloxetine HCl 60 Mg Capsule., 60 MG PO BID, (Reported) Gabapentin 600 Mg Tablet, 600 MG PO TID, (Reported) LAST FILLED #270 12-06-18 Hydrocodone Bit/Acetaminophen 1 Each Tablet, 1 TAB PO BID PRN for PAIN-MODERATE, (Reported) Insulin Aspart 300 Units/3 Ml Solution, 5 UNITS SQ AC Prescribed by: LISA PEGUERO on 05/17/19 1700 Insulin Detemir 100 Unit/1 Ml Insuln.pen, 35 UNITS SC BID, (Reported) Lisinopril 5 Mg Tablet, 5 MG PO DAILY, (Reported) Metformin HCl 500 Mg Tablet, 1,000 MG PO BID, (Reported) LAST FILLED #360 11-17-18 Ondansetron 4 Mg Tab.rapdis, 4 MG PO Q6H PRN for NAUSEA/VOMITING Prescribed by: ROMERO KEITH on 03/25/211821 Pantoprazole Sodium 40 Mg Tablet.dr, 40 MG PO DAILY, (Reported) Tramadol HCl 50 Mg Tablet, 50 MG PO BID PRN for PAIN-MODERATE, (Reported) Patient Home Medication List Home Medication List Reviewed: Yes Review of Systems Review of Systems Constitutional: No chills, No diaphoresis EENTM: No ear discharge, No ear pain Respiratory: No cough, No dyspnea on exertion Cardiovascular: No chest pain, No palpitations Gastrointestinal: No abdominal pain; nausea; No vomiting Genitourinary: see HPI; No dysuria; frequency Musculoskeletal: No back pain, No joint pain All Other Systems Reviewed Negative Unless Noted: Yes Past Gadbsra-Fdaxho-Mwmgpc Hx Patient Social History Alcohol Use: Denies Use Number of Drinks Today: AA Alcohol Beverage of Choice: Beer Smoking Status: Current Everyday Smoker Type Used: Cigarettes Recent Infectious Disease Expo: No Recent Hopitalizations: No Immunizations Up To Date Date of Pneumonia Vaccine: Jan 09, 2010 Seasonal Allergies Seasonal Allergies: Yes Past Medical History Surgeries: Yes (LOW BACK SURGERY, LOOP RECORDER ) Cardiac, Orthopedic Respiratory: Yes Pneumonia Cardiac: Yes Hypertension Neurological: Yes (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) Stroke, TIA Sexually Transmitted Disease: No HIV/AIDS: No Genitourinary: No Gastrointestinal: Yes Gastroesophageal Reflux Musculoskeletal: Yes (CHRONIC LEFT SIDED SCIATICA) Chronic Back Pain Endocrine: Yes Diabetes, Non-Insulin dep HEENT: No Cancer: No Psychosocial: No Integumentary: No Blood Disorders: No Adverse Reaction/Blood Tranf: No Family Medical History Cardiovascular disease 19 FATHER Completed stroke paternal grandmother patrnal grandfather Coronary thrombosis paternal grandmother Diabetes mellitus G8 SISTER Hypercholesterolemia 19 FATHER G8 BROTHER Hypertension 19 FATHER G8 BROTHER Physical Exam-Suspected Sepsis Physical Exam Vital Signs Vital Signs - First Documented 03/25/21 14:15 Temp 36.3 Pulse 108 Resp 18 B/P (MAP) 139/88 (105) Pulse Ox 97 O2 Delivery Room Air Capillary Refill : Less Than 3 Seconds Blood Pressure Mean: 105 Height, Weight, BMI Height: 6'3.00" Weight: 196lbs. 8.0oz. 89.528031al; 22.00 BMI Method:Stated General Appearance: No Apparent Distress, WD/WN Eyes: Bilateral Eye Normal Inspection, Bilateral Eye PERRL, Bilateral Eye EOMI HEENT: PERRL/EOMI, Pharynx Normal, Moist Mucous Membranes Neck: Full Range of Motion, Normal Inspection Respiratory: Lungs Clear, Normal Breath Sounds, No Accessory Muscle Use, No Respiratory Distress Cardiovascular: Regular Rate, Rhythm, No Edema, Normal Peripheral Pulses Gastrointestinal: Normal Bowel Sounds, Non Tender, Soft Extremity: Normal Capillary Refill, Normal Inspection, No Pedal Edema Neurologic/Psychiatric: Alert, Oriented x3, No Motor/Sensory Deficits Skin: normal color, warm/dry Progress/Results/Core Measures Suspected Sepsis Recent Fever Within 48 Hours: No Infection Criteria Present: None New/Unexplained Altered Menta: No Sepsis Screen: No Definite Risk SIRS Temperature: Pulse: 108 Respiratory Rate: 18 Laboratory Tests 03/25/21 14:50: White Blood Count 8.5 Blood Pressure 139 /88 Mean: 105 Laboratory Tests 03/25/21 14:50: Creatinine 1.06, Platelet Count 219, Total Bilirubin 0.4 Results/Orders Lab Results Laboratory Tests Test 03/25/21 14:24 03/25/21 14:50 03/25/21 14:55 Range/Units Glucometer 280 H 70-110 MG/DL White Blood Count 8.5 4.3-11.0 10^3/uL Red Blood Count 4.99 4.30-5.52 10^6/uL Hemoglobin 15.7 13.3-17.7 g/dL Hematocrit 45 40-54 % Mean Corpuscular Volume 89 80-99 fL Mean Corpuscular Hemoglobin 32 25-34 pg Mean Corpuscular Hemoglobin Concent 35 32-36 g/dL Red Cell Distribution Width 11.8 10.0-14.5 % Platelet Count 219 130-400 10^3/uL Mean Platelet Volume 9.8 9.0-12.2 fL Immature Granulocyte % (Auto) 0 % Neutrophils (%) (Auto) 66 42-75 % Lymphocytes (%) (Auto) 25 12-44 % Monocytes (%) (Auto) 7 0-12 % Eosinophils (%) (Auto) 1 0-10 % Basophils (%) (Auto) 0 0-10 % Neutrophils # (Auto) 5.6 1.8-7.8 10^3/uL Lymphocytes # (Auto) 2.2 1.0-4.0 10^3/uL Monocytes # (Auto) 0.6 0.0-1.0 10^3/uL Eosinophils # (Auto) 0.1 0.0-0.3 10^3/uL Basophils # (Auto) 0.0 0.0-0.1 10^3/uL Immature Granulocyte # (Auto) 0.0 0.0-0.1 10^3/uL Sodium Level 135 135-145 MMOL/L Potassium Level 3.4 L 3.6-5.0 MMOL/L Chloride Level 98 98-107 MMOL/L Carbon Dioxide Level 22 21-32 MMOL/L Anion Gap 15 H 5-14 MMOL/L Blood Urea Nitrogen 13 7-18 MG/DL Creatinine 1.06 0.60-1.30 MG/DL Estimat Glomerular Filtration Rate > 60 BUN/Creatinine Ratio 12 Glucose Level 269 H 70-105 MG/DL Calcium Level 9.1 8.5-10.1 MG/DL Corrected Calcium 9.2 8.5-10.1 MG/DL Magnesium Level 1.8 1.6-2.4 MG/DL Total Bilirubin 0.4 0.1-1.0 MG/DL Aspartate Amino Transf (AST/SGOT) 11 5-34 U/L Alanine Aminotransferase (ALT/SGPT) 18 0-55 U/L Alkaline Phosphatase 81 40-136 U/L C-Reactive Protein High Sensitivity 0.28 0.00-0.50 MG/DL Total Protein 6.3 L 6.4-8.2 GM/DL Albumin 3.9 3.2-4.5 GM/DL Urine Color YELLOW Urine Clarity CLEAR Urine pH 5.5 5-9 Urine Specific [place] >=1.030 1.016-1.022 Urine Protein 1+ H NEGATIVE Urine Glucose (UA) 3+ H NEGATIVE Urine Ketones NEGATIVE NEGATIVE Urine Nitrite NEGATIVE NEGATIVE Urine Bilirubin NEGATIVE NEGATIVE Urine Urobilinogen 0.2 < = 1.0 MG/DL Urine Leukocyte Esterase NEGATIVE NEGATIVE Urine RBC (Auto) NEGATIVE NEGATIVE Urine RBC 0-2 /HPF Urine WBC 0-2 /HPF Urine Crystals PRESENT H /LPF Urine Amorphous Sediment FEW CHRIS URATES H /LPF Urine Bacteria NEGATIVE /HPF Urine Casts PRESENT /LPF Urine Hyaline Casts 5-10 H /LPF Urine Mucus SMALL H /LPF Urine Culture Indicated NO My Orders Orders - ROMERO KEITH Ed Iv/Invasive Line Start (03/25/21 14:44) Ns Iv 1000 Ml (Sodium Chloride 0.9%) (03/25/21 14:45) Ns Iv 1000 Ml (Sodium Chloride 0.9%) (03/25/21 14:45) Cbc With Automated Diff (03/25/21 14:44) Comprehensive Metabolic Panel (03/25/21 14:44) Hs C Reactive Protein (03/25/21 14:44) Chest 1 View, Ap/Pa Only (03/25/21 14:44) Accucheck Stat ONCE (03/25/21 14:44) Ua Culture If Indicated (03/25/21 14:44) Magnesium (03/25/21 14:44) Medications Given in ED Current Medications Medications Dose Ordered Sig/Anthony Route Start Time Stop Time Status Last Admin Dose Admin Sodium Chloride 1,000 ml @ 0 mls/hr Q0M ONCE IV 03/25/21 14:45 03/25/21 14:47 DC 03/25/21 16:56 1,000 MLS/HR Vital Signs/I&O 03/25/21 03/25/21 14:15 18:38 Temp 36.3 36.3 Pulse 108 83 Resp 18 18 B/P (MAP) 139/88 (105) 139/99 (105) Pulse Ox 97 98 O2 Delivery Room Air Room Air Capillary Refill : Less Than 3 Seconds Blood Pressure Mean: 105 Point of Care Testing Finger Stick Blood Glucose: 280 Blood Glucose Action Taken: SAGAR NOTIFIED Progress Note : Time: 18:19 Progress Note The patient's labs do not demonstrate any acute crisis. He is doing well has normal aseptic vital signs. We will give him some Zofran for his nausea. 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 Departure Impression Primary Impression: Type 1 diabetes mellitus Qualified Codes: E10.69 - Type 1 diabetes mellitus with other specified complication Additional Impression: Hyperglycemia Disposition: 01 HOME, SELF-CARE Condition: Stable Departure-Patient Inst. Decision time for Depature: 18:20 Referrals: KATELYN BATISTA MD (PCP/Family) Primary Care Physician Patient Instructions: Hyperglycemia, Adult (DC), How to Prevent High Blood Sugar Emergencies in Diabetes Add. Discharge Instructions: Take your insulin with you and keep it cold. Drink plenty of fluids. Zofran 1 tablet under the tongue every 6 hours as necessary for nausea and/or vomiting. Return to the ER for intractable vomiting, abdominal pain, fever or other worrisome symptoms. Follow-up on Sunday with your primary care team to help better manage your insulin usage and blood sugars. All discharge instructions reviewed with patient and/or family. Voiced understanding. Scripts Ondansetron (Ondansetron Odt) 4 Mg Tab.rapdis 4 MG PO Q6H PRN for NAUSEA/VOMITING, #8 TAB 0 Refills Prov: ROMERO KEITH 03/25/21 ROMERO KEITH Mar 25, 2021 15:25
[2021-03-25 15:33] LABS: AMORPHOUS SEDIMENT,UR FEW AMOR URATES /LPF; BACTERIA,URINE NEGATIVE /HPF; RBC,URINE 0-2 /HPF; WBC,URINE 0-2 /HPF
[2021-03-25] MEDS ORDERED: ONDA4TAB11 PO (18:22)
[2021-03-25] MEDS ORDERED: NS IV 1000 ML 1,000 ML ONE (18:25)
[2021-03-25 18:38] VITALS: BP 139/99
== END 2021-03-25 18:38 | disposition home or self-care (01) ==
LOC: EDUNIT# 14:00 → ER 14:02
DX: E10.65 Type 1 diabetes mellitus with hyperglycemia (principal); I10 Essential (primary) hypertension; K21.9 Gastro-esophageal reflux disease without esophagitis; G89.29 Other chronic pain; M54.9 Dorsalgia, unspecified; F17.210 Nicotine dependence, cigarettes, uncomplicated; Z86.73 Personal history of transient ischemic attack (TIA), and cerebral infarction without residual deficits; Z79.82 Long term (current) use of aspirin; Z79.01 Long term (current) use of anticoagulants; Z79.899 Other long term (current) drug therapy; Z79.891 Long term (current) use of opiate analgesic
CPT/HCPCS: 36415; 71045; 80053; 81000; 82947; 83735; 85025; 86141

== ENCOUNTER → 2021-04-08 | Outpatient (CLI) | payer MEDICARE ==
[~2021-04-08] MED LIST changes: +ONDA4TAB11 PO
--- NOTE | 2021-04-08 11:03 | Diagnostic Imaging Report ---
PROCEDURE: US Renal Bilateral. TECHNIQUE: Multiple real-time grayscale images were obtained over the kidneys in various projections bilaterally. INDICATION: Left flank pain and hematuria. Right kidney measures 11.7 x 6.6 x 5.3 cm, the left kidney measures 12.0 x 4.6 x 6.2 cm. Cortical thickness and echogenicity is normal bilaterally. No calculi are seen. There is no hydronephrosis. Bilateral ureteral jets were visualized within the urinary bladder. IMPRESSION: Unremarkable renal ultrasound. Dictated by: Dictated on workstation # [id number]
== END ==
LOC: RAD 10:15
DX: R10.9 Unspecified abdominal pain (principal); R31.9 Hematuria, unspecified
CPT/HCPCS: 76770

== ENCOUNTER → 2021-05-09 | Outpatient (CLI) | payer MEDICARE ==
--- NOTE | 2021-05-09 09:16 | Diagnostic Imaging Report ---
PROCEDURE: US Scrotum w/ Duplex TECHNIQUE: Multiple realtime ziegler images were obtained of the scrotum in various projections bilaterally. Color Doppler images were also obtained. INDICATION: Left-sided testicular pain. COMPARISON: None. FINDINGS: The testicles are normal in size, shape and echogenicity. The right testis measures 5.6 x 2.3 x 3.4 cm. The left testis measures 4.9 x 2.6 x 3.5 cm. There is normal color flow Doppler signal of both testicles. No focal testicular mass is seen on either side. Bilateral epididymal cysts are present, measuring 0.4 x 0.4 x 0.4 cm on the right and 0.4 x 0.2 cm on the left. There is no sonographic evidence of epididymitis. IMPRESSION: 1. Unremarkable sonographic appearance of the testicles without evidence of torsion or mass. 2. Bilateral subcentimeter epididymal head cysts. Dictated by: Dictated on workstation # [id number]
== END ==
LOC: RAD 08:28
PROVIDERS: ATTEND Urology
DX: N50.3 Cyst of epididymis (principal)
CPT/HCPCS: 76870

== ENCOUNTER 2021-05-25 22:57 | Emergency (ER) | payer MEDICARE | END 2021-05-25 23:59 | disposition left against medical advice (07) | LOC: EDUNIT# 22:57 → ER 22:59 | DX: M54.9 Dorsalgia, unspecified (principal); R20.0 Anesthesia of skin ==

== ENCOUNTER → 2021-06-17 | Outpatient (CLI) | payer MEDICARE ==
--- NOTE | 2021-06-17 11:14 | Diagnostic Imaging Report ---
PROCEDURE: MRI lumbar spine. TECHNIQUE: Multiplanar, multisequence MRI of the lumbar spine was performed without contrast. INDICATION: Low back pain for 6 months. Patient has had prior back surgeries. Comparison is made with prior MRI of the lumbar spine from 06/10/2018. There is some straightening of the normal lumbar lordotic curvature. Minimal retrolisthesis of L4 on L5 is similar to prior exam. Vertebral body heights are maintained. There is no evidence of an acute compression fracture. Significant degenerative disc disease at L4-L5 is again noted with significant disc space narrowing. There are Modic changes within the endplates at this level as well. There is some desiccation throughout the remaining levels of the lumbar spine as well but heights are fairly well-preserved. The conus is unremarkable at the T12-L1 level. T12-L1: Central canal is widely patent. Neural foramina are widely patent. L1-L2: The central canal and neural foramina appear to be widely patent. L2-L3: The central canal and neural foramina appear to be widely patent. L3-L4: Central canal is widely patent. There is mild narrowing of the neural foramina bilaterally. L4-L5: Broad-based disc/osteophyte complex indents ventral thecal sac. There is mild narrowing of the canal. There is significant narrowing bilateral lateral recesses. There is also significant narrowing of bilateral neural foramina. This is similar to prior exam. L5-S1: Central canal is widely patent. There is moderate bilateral neural foraminal stenosis. The paraspinous tissues are unremarkable. IMPRESSION: Lumbar spondylosis, greatest L4-L5 level where there is significant lateral recess and neural foraminal narrowing described above. No acute compression fracture seen. Overall appearance of lumbar spine is similar to examination from 06/10/2018. Dictated by: Dictated on workstation # [id number]
== END ==
LOC: RAD 09:30
PROVIDERS: ATTEND Nurse Practitioner
DX: M48.07 Spinal stenosis, lumbosacral region (principal); M51.16 Intervertebral disc disorders with radiculopathy, lumbar region; M47.26 Other spondylosis with radiculopathy, lumbar region; Z98.890 Other specified postprocedural states
CPT/HCPCS: 72148

== ENCOUNTER → 2021-12-05 | Outpatient (CLI) | payer MEDICARE ==
[~2021-12-05] MED LIST changes: -CITA40TA11 PO; +CITA40TA13 PO; +CYCL10TA25 PO; -CYCL10TA9 PO; -LISI-729 PO; +LISI5TAB20 PO
== END ==
LOC: CARD 11:30
PROVIDERS: ATTEND Nurse Practitioner Family
DX: I27.21 Secondary pulmonary arterial hypertension (principal); I07.1 Rheumatic tricuspid insufficiency
CPT/HCPCS: 93306

== ENCOUNTER → 2022-03-28 | Outpatient (CLI) | payer MEDICARE ==
[~2022-03-28] MED LIST changes: +REGADENOSON 0.4 MG/5 ML SYR (LEXISCAN) IV ONE
[2022-03-28 12:49] VITALS: BP 139/76
--- NOTE | 2022-03-30 14:14 | STRESS TEST ---
DATE OF SERVICE: 03/28/2022 RESTING AND POST REGADENOSON TECHNETIUM-99M TETROFOSMIN SPECT CT IMAGING ORDERING PHYSICIAN: Dr. Webb. PRIMARY PHYSICIAN: . CLINICAL DIAGNOSIS: Shortness of breath. Baseline images were carried out after injection of 10.67 mCi of technetium-99m Tetrofosmin. This was followed by 0.4 mg regadenoson and 29.8 mCi of technetium-99m stress imaging. The electrocardiogram showed sinus rhythm. The electrocardiogram did not change significantly with regadenoson infusion. The patient tolerated the procedure well. Review of images at rest and following stress does not indicate any distinct perfusion defects consistent with significant myocardial ischemia or infarction. Gated images show normal global left ventricular systolic function with normal regional wall motion. Left ventricular ejection fraction is calculated to be 57%. Left ventricular end end-diastolic volume is 102 mL. TID is absent (1.04). CONCLUSIONS: 1. No evidence of any significant myocardial ischemia or infarction on this study. 2. Normal regional wall motion. 3. Normal global left ventricular systolic function with a calculated ejection fraction of 57%. Job ID: [id number] DocumentID: [id number] Dictated Date: 03/30/2022 12:03:28 Lithograph Operator Date: 03/30/2022 14:13:54 Dictated By: RAYSA WEBB MD, MA, FACP, FACC,
== END ==
LOC: CARD 11:00
PROVIDERS: ATTEND Internal Medicine Cardiovascular Disease
DX: R06.09 Other forms of dyspnea (principal)
CPT/HCPCS: 78452; 93017; 93306; A9502